=== PATIENT | male | born 1960 | race Caucasian/White ===

== ENCOUNTER 2020-03-06 05:49 | Outpatient (REF) | payer OTHER, SELFPAY ==
[2020-03-06 08:21] LABS: MANUAL DIFF FLAG NO
[2020-03-06 08:25] LABS: Basophils Absolute Auto 0.1 X10*3/uL (0.0-0.2); Basophils Percent Auto 1.4 % (0-2); Eosinophils Absolute Auto 0.2 X10*3/uL (0.0-0.4); Eosinophils Percent Auto 3.4 % (0-4); Hematocrit 40.6 % (42-52); Imm Gran Abs Auto 0.01 X10*3/uL (0.00-0.03); Imm Gran Pct Auto 0.2 % (0.0-0.4); Lymphocytes Absolute Auto 1.3 X10*3/uL (1.2-4.9); Lymphocytes Percent Auto 29.4 % (20-40); Mean Corpuscular Hemoglobin 28.5 pg (27.0-33.0); Monocytes Absolute Auto 0.8 X10*3/uL (0.1-1.2); Neutrophils Absolute Auto 2.2 X10*3/uL (2.0-8.3); Neutrophils Percent Auto 48.6 % (45-73); Platelet Count 289 X10*3/uL (160-400); Red Blood Count 4.56 X10*6/uL (4.60-5.80); Red Cell Distribution Width 14.2 % (11.0-16.0); White Blood Count 4.4 X10*3/uL (4.8-10.8)
[2020-03-06 08:29] LABS: Glucose Urine UA NEG (NEG); Leukocyte Esterase Urine NEG (NEG); Nitrite Urine NEG (NEG); Specific Gravity - Urine 1.025 (1.005-1.025); Urine Blood NEG (NEG); Urine Ketones NEG (NEG); Urine Protein NEG (NEG-TRACE)
[2020-03-06 08:30] LABS: Appearance Urine CLEAR; Color Urine YELLOW
[2020-03-06 09:20] LABS: Alanine Aminotransferase 19 U/L (0-40); Albumin Level 4.5 g/dL (3.5-5.0); Alkaline Phosphatase 82 U/L (39-117); Anion Gap 10 (12-20); Aspartate Amino Transferase 18 U/L (5-37); Bilirubin Total 0.2 mg/dL (0.0-1.0); Blood Urea Nitrogen 18 mg/dL (9-16); Calcium 9.1 mg/dL (8.4-10.2); Carbon Dioxide 30 mmol/L (22-29); Chloride 101 mmol/L (96-108); Cholesterol 176 mg/dL; Estimated Glomerular Filt Rate > 60; Glucose Fasting 99 mg/dL (60-99); HDL Cholesterol 52 mg/dL; LDL Cholesterol Calculated 107 mg/dl; Potassium 4.6 mmol/l (3.3-5.1); Sodium 136 mmol/L (135-145); Total Protein 6.9 g/dL (6.5-8.0); Triglycerides 87 mg/dL
== END 2020-03-06 05:50 | disposition home or self-care (01) ==
LOC: HO.HSHHMC 05:49
PROVIDERS: Visit Provider Internal Medicine Medical Oncology
DX: I48.91 Unspecified atrial fibrillation (principal)
CPT/HCPCS: 36415; 80053; 80061; 81003; 85025

== ENCOUNTER → 2020-04-07 14:39 | Outpatient (BNVA) | payer OTHER, SELFPAY | PROVIDERS: PCP Internal Medicine; Visit Provider Internal Medicine Cardiovascular Disease | DX: I48.92 Unspecified atrial flutter (principal); R00.1 Bradycardia, unspecified | CPT/HCPCS: 93005 ==

== ENCOUNTER 2020-10-06 05:00 | Outpatient (REF) | payer OTHER, SELFPAY ==
[2020-10-06 08:46] LABS: MANUAL DIFF FLAG NO
[2020-10-06 08:57] LABS: Basophils Absolute Auto 0.1 X10*3/uL (0.0-0.2); Basophils Percent Auto 1.2 % (0-2); Eosinophils Absolute Auto 0.2 X10*3/uL (0.0-0.4); Eosinophils Percent Auto 2.8 % (0-4); Hematocrit 39.5 % (42-52); Imm Gran Abs Auto 0.03 X10*3/uL (0.00-0.03); Imm Gran Pct Auto 0.5 % (0.0-0.4); Lymphocytes Absolute Auto 1.9 X10*3/uL (1.2-4.9); Lymphocytes Percent Auto 31.4 % (20-40); Mean Corpuscular HGB Conc 32.9 g/dl (31.0-36.0); Mean Corpuscular Hemoglobin 28.7 pg (27.0-33.0); Mean Corpuscular Volume 87.2 fL (80-98); Mean Platelet Volume 9.4 fL (9.4-12.4); Monocytes Absolute Auto 0.6 X10*3/uL (0.1-1.2); Neutrophils Absolute Auto 3.2 X10*3/uL (2.0-8.3); Neutrophils Percent Auto 54.1 % (45-73); Platelet Count 308 X10*3/uL (160-400); Red Blood Count 4.53 X10*6/uL (4.60-5.80)
[2020-10-06 08:59] LABS: Estimated Average Glucose 108 mg/dL; Hemoglobin A1c % 5.4 %
[2020-10-06 09:10] LABS: Alanine Aminotransferase 14 U/L (0-40); Albumin Level 4.3 g/dL (3.5-5.0); Alkaline Phosphatase 92 U/L (39-117); Anion Gap 12 (12-20); Aspartate Amino Transferase 15 U/L (5-37); Bilirubin Total 0.3 mg/dL (0.0-1.0); Blood Urea Nitrogen 12 mg/dL (9-16); Calcium 9.4 mg/dL (8.4-10.2); Carbon Dioxide 26 mmol/L (22-29); Chloride 105 mmol/L (96-108); Cholesterol 152 mg/dL; Estimated Glomerular Filt Rate > 60; Glucose Fasting 82 mg/dL (60-99); HDL Cholesterol 50 mg/dL; LDL Cholesterol Calculated 93 mg/dl; Potassium 4.4 mmol/L (3.3-5.1); Sodium 139 mmol/L (135-145); Total Protein 6.7 g/dL (6.5-8.0); Triglycerides 48 mg/dL
[2020-10-06 09:30] LABS: Vitamin D 25-OH Total 24.2 ng/mL (>30)
== END 2020-10-06 05:01 ==
LOC: HO.HSHHMC 05:00
PROVIDERS: Visit Provider Internal Medicine Medical Oncology
DX: Z12.5 Encounter for screening for malignant neoplasm of prostate (principal); R73.9 Hyperglycemia, unspecified
CPT/HCPCS: 36415; 80053; 80061; 82306; 83036; 84153; 85025

== ENCOUNTER → 2020-10-13 13:51 | Outpatient (BNVA) | payer OTHER, SELFPAY | PROVIDERS: PCP Internal Medicine; Referring Provider Internal Medicine; Visit Provider Internal Medicine Cardiovascular Disease | DX: I48.92 Unspecified atrial flutter (principal); R00.1 Bradycardia, unspecified; Z79.899 Other long term (current) drug therapy | CPT/HCPCS: 93005 ==

== ENCOUNTER → 2021-04-07 12:37 | Outpatient (REF) | payer OTHER, SELFPAY ==
--- NOTE | 2021-04-07 12:45 | CA_ITS ---
Transthoracic Echocardiogram Patient (Last, First, Middle): Jamir Moreno W Gender: Male Date of : 1960 Age: 61 Procedure Date: 04/07/2021 Procedure Type: Transthoracic Echocardiogram Location: OP Height: 177.8 cm Weight: 90.72 kg BSA: 2.09 m2 Heart Rate: 147 bpm BP: 120 / 68 mmHg Tool And Die Technician: RUBY Referring MD: Rahul Oneal MD Symptoms: I48.92 - Unspecified atrial flutter Study Quality: Fair ECG Rhythm: Atrial flutter with rapid rate Conclusions: - Due to atrial flutter and rapid rate (140s), difficult to assess LVEF; appears to be about 50%. - No obvious valvular pathology based on visualized images. Findings Left Ventricle Normal left ventricular cavity size. There is normal left ventricular wall thickness. Regional wall motion abnormalities can not be excluded due to suboptimal endocardial definition. Diastolic function is indeterminate on the basis of available data. Due to atrial flutter and rapid rate (140s), difficult to assess LVEF; appears to be about 50%. Right Ventricle Normal right ventricular cavity size and systolic function. Atria Atria are not clearly visualized but grossly normal size. Aortic Valve There is mild calcification of the aortic valve. There is no aortic valve stenosis. There is no aortic valve regurgitation. Mitral Valve The mitral valve appears normal. There is no mitral valve regurgitation. There is no mitral valve stenosis. Pulmonic Valve The pulmonic valve was not well visualized. Tricuspid Valve Normal tricuspid valve structure. There is trace tricuspid valve regurgitation. There is no evidence of pulmonary hypertension. Great Vessels The sinuses of valsalva is normal in size. Venous The inferior vena cava is normal in size and collapses less than 50% with inspiration. Pericardium/Pleural There is a trivial pericardial effusion. Prior Study Comparison No significant change compared to prior study dated: 03/13/2018. Measurements 2D Linear Measurements IVSd: 0.99 0.6-0.9/0.6-1.0 cm LVIDd: 4.56 3.9-5.3/4.2-5.9 cm LVIDd Index: 2.18 2.4-3.2/2.2-3.1 cm/m2 LVIDs: 3.28 2.0-3.6 cm LVPWd: 1.17 0.7-1.1 cm Ao Root: 3.50 2.1-3.5 cm LA Diam: 3.30 2.7-3.8/3.0-4.0 cm LAIDs Index: 1.58 1.5-2.3 cm/m2 LV Mass: 217.13 67-162/88-224 g LV Mass Index: 103.89 43-95/49-115 g/m2 LVOT Diam: 2.10 3.0+(-)1.3 cm Mitral Valve E'Lateral: 19.10 E'Medial: 12.60 Aortic Valve AoV Pk Thierry: 1.37 AoV Pk Grad: 8.00 LVOT LVOT Pk Thierry: 1.22 LVOT Mn Thierry: 0.77 LVOT VTI: 0.19 LVOT Pk Grad: 6.00 LVOT Mn Grad: 3.00 LVOT Diam: 2.10 LVOT Area: 3.46 Diastolic Function E'Medial: 12.60 E' Laterial: 19.10 Right Ventricle TAPSE (mm): 22.00 TVS' Thierry: 16.00 Tricuspid Valve TR Pk Thierry: 2.55 TR Pk Grad: 26.00 RA Press: 8.00 RVSP: 33.00 Great Vessels Aorta Ao Root-2D: 3.50 2.0-3.7 cm Updated in Other Vendor System with Status of Final Haider Arguello MD electronically signed on 04/08/2021 11:21:18 AM with status of Final
--- NOTE | 2021-04-07 13:24 | ECG_ITS ---
Test Reason : I48.92 Blood Pressure : / mmHG Vent. Rate : 146 BPM Atrial Rate : 292 BPM P-R Int : 000 ms QRS Dur : 074 ms QT Int : 242 ms P-R-T Axes : 266 000 013 degrees QTc Int : 377 ms Atrial flutter with 2:1 A-V conduction Abnormal ECG When compared with ECG of 24-FEB-2018 23:16, Atrial flutter has replaced Sinus rhythm Vent. rate has increased BY 80 BPM Referred By: Rahul Oneal Electronically Signed By:JYOTI CONLEY
== END ==
LOC: HO.CARD 12:37
PROVIDERS: PCP Internal Medicine; Visit Provider Internal Medicine Cardiovascular Disease
DX: I48.92 Unspecified atrial flutter (principal); R00.1 Bradycardia, unspecified
CPT/HCPCS: 93005; 93306

== ENCOUNTER → 2021-04-09 09:54 | Outpatient (BNVA) | payer OTHER, SELFPAY | PROVIDERS: PCP Internal Medicine; Referring Provider Internal Medicine; Visit Provider Nurse Practitioner Family | DX: R94.31 Abnormal electrocardiogram [ECG] [EKG] (principal) | CPT/HCPCS: 93005 ==

== ENCOUNTER 2021-04-17 12:41 | Day surgery (SDC) | payer OTHER, SELFPAY ==
[2021-04-16 09:04] VITALS: BMI 31.0
--- NOTE | 2021-04-17 11:03 | P.CONAN_ITS ---
[facility] Active Problems Active Problems: All Active Problems (Updated 04/07/20 @ 15:33 by Rahul Oneal MD) Sinus bradycardia (Acute) Paroxysmal atrial flutter (Acute) Past Medical History Medical History Paroxysmal atrial flutter Sinus bradycardia Functional capacity: independent ambulation Family History Family History Father Colon cancer Mother No problems noted. Surgical History Surgical History History of surgery on arm Hx of colonoscopy History of Problems with Anesthesia: No Social History Social History Alcohol intake: former Year quit: 2004 Patient Tobacco Use Status: Former Tobacco user Quit Date: 2018 Years Smoked: 40 +/- Meds Allergies Allergy/AdvReac Type Severity Reaction Status Date / Time No Known Allergies Allergy Verified 04/07/21 14:04 [No Known Allergies*] N.K.D.A. Allergy Unknown Unknown Uncoded 04/07/21 14:04 Home Medications Medication Instructions Recorded Confirmed Last Taken Type paliperidone 1.5 mg 1.5 mg PO tab 10/13/20 10/13/20 Unknown History tablet,extended release 24 hr diltiazem HCl 240 mg 240 mg PO DAILY 04/07/21 04/07/21 Unknown History capsule,extended release 24 hr Exam Exam Date and Time: April 17, 2021 1103 Height,Weight and Vital Signs: Height 5 ft 11 in Weight 101 kg Assessment and Plan Final Anesthetic Review History of Problems with Anesthesia: No
[2021-04-17 13:20] VITALS: BP 142/84; PULSE 146; RESP 18; TEMP 36.7; O2SAT 97; BMI 28.7
[2021-04-17] MEDS: Lactated Ringers 1,000 ML 100 ML IVCONT (13:28)
--- NOTE | 2021-04-17 13:29 | PC.NURSE ---
1330- HR 143 a flutter, asymptomatic BP 123/79. Alert, warm, dry, good color. 1335- HR 1452 a flutter, asymptomatic, 131/82, re-evaluated by Dr Oneal, awaiting LANETTE/cardioversion.
--- NOTE | 2021-04-17 13:45 | HO.ANESPROP2 ---
[facility] Active Problems Active Problems: All Active Problems (Updated 04/07/20 @ 15:33 by Rahul Oneal MD) Sinus bradycardia (Acute) Paroxysmal atrial flutter (Acute) Past Medical History Medical History Paroxysmal atrial flutter Sinus bradycardia Functional capacity: independent ambulation Family History Family History Father Colon cancer Mother No problems noted. Family history of problems with anesthesia: No Surgical History Surgical History History of surgery on arm Hx of colonoscopy History of Problems with Anesthesia: No Social History Social History Alcohol intake: former Year quit: 2004 Patient Tobacco Use Status: Former Tobacco user Quit Date: 2018 Years Smoked: 40 +/- Use of substances other than those prescribed or required for medical reasons: No Are you DNR?: No Advance Directives: No Advance Directives Information Provided: Yes Meds Allergies Allergy/AdvReac Type Severity Reaction Status Date / Time No Known Allergies Allergy Verified 04/07/21 14:04 [No Known Allergies*] N.K.D.A. Allergy Unknown Unknown Uncoded 04/07/21 14:04 Active Medications: Current Medications Lactated Ringer's (Lr) 1,000 mls @ 100 mls/hr IVCONT .Q10H LELIA Last Admin: 04/17/21 13:28 Dose: 100 mls/hr Documented by: Home Medications Medication Instructions Recorded Confirmed Last Taken Type paliperidone 1.5 mg 1.5 mg PO tab 10/13/20 10/13/20 Unknown History tablet,extended release 24 hr diltiazem HCl 240 mg 240 mg PO DAILY 04/07/21 04/07/21 Unknown History capsule,extended release 24 hr Exam Exam Date and Time: April 17, 2021 1345 Height,Weight and Vital Signs: Height 5 ft 10 in Weight 90.718 kg Last Vital Signs Temp 98.1 F 04/17/21 13:20 Pulse 146 H 04/17/21 13:20 Resp 18 04/17/21 13:20 BP 142/84 H 04/17/21 13:20 Pulse Ox 97 04/17/21 13:20 Airway Mallampati Class: III TM Dist: >3cm Neck ROM: Full Denture: Upper and Lower Heart: Fast regular- atrial flutter Lungs: CTA Assessment and Plan Final Anesthetic Review Family History of Problems with Anesthesia: No History of Problems with Anesthesia: No ASA Class: IV Final Preanesthetic Review: Meds/Allgs Chart Reviewed, Consent Obtained/Reviewed and Anes Risks/Benef Reviewed Patient Risk: Intermediate Procedure Risk: Intermediate Anesthetic Plan Anesthetic Plan: MAC: Disposition: Standard PACU
--- NOTE | 2021-04-17 13:50 | CA_ITS ---
Transesophageal Echocardiogram Patient (Last, First, Middle): Jamir Moreno W Gender: Male Date of : 1960 Age: 61 Procedure Date: 04/17/2021 Procedure Type: Transesophageal Echocardiogram Location: OP Height: 177.8 cm Weight: 95.25 kg BSA: 2.13 m2 Heart Rate: bpm Ward Aide: JULIO Referring MD: Rahul Oneal MD Computer Programming Professor: Rahul Oneal MD Symptoms: Persistent atrial flutter, pre cardioversion Conclusion: ??? 1. Low normal LV systolic function, LVEF of around 50%, difficult to estimate due to rapid ventricular rate 2. Mild mitral regurgitation 3. No intracardiac shunting 4. No significant atherosclerosis in the ascending aorta 5. No pericardial effusion 6. No significant clot or smoke formation seen with the left atrium, left atrial appendage Findings Procedure Information Consent was obtained prior to the procedure. Pre LANETTE oral cavity was checked and revealed no overcrowding. The adult 3D probe was passed with no difficulty. Left Ventricle Normal left ventricular cavity size. There is normal left ventricular wall thickness. The left ventricular systolic function is low normal. Diastolic function is indeterminate on the basis of available data. because of persistent tachycardia, LV systolic function is difficult to assess but appears to be at low end of normal at around 50% Right Ventricle Normal right ventricular cavity size and systolic function. Atria The left atrium is likely dilated. There is a highly mobile atrial septum noted. There is no evidence of interatrial shunt. There is no evidence of a patent foramen ovale. the left atrium was identified in multiple you. In no significant filling defect suggestive clot or significant smoke formation seen. The left atrial appendage is also identified in multiple views with no filling defects suggestive clots or significant smoke formation. The left upper, right upper and right lower pulmonary vein drain normally into the left atrium. The left atrial appendage ejection velocity was greater than 60 centimeters/second. The right atrium is likely dilated. The right atrium was free of any clots or significant smoke formation. The right atrial appendage could not be easily identified. The IVC and SVC drain normally into the right atrium. The station valve was noticed at the junction of right atrium and IVC. Aortic Valve Normal aortic valve structure and function. There is no aortic valve stenosis. There is no evidence of a mass on the aortic valve. There is no aortic valve regurgitation. Mitral Valve Normal mitral valve structure and function. There is no mitral valve prolapse. There is mild mitral valve regurgitation. There is no mitral valve stenosis. There is no mass noted on the mitral valve. Pulmonic Valve The pulmonic valve is normal. There is trace pulmonic valve regurgitation. Tricuspid Valve Normal tricuspid valve structure. There is mild tricuspid valve regurgitation. Tricuspid regurgitation envelope is inadequate for calculation of right ventricular systolic pressure. Great Vessels All visible segments of the aorta are normal in size. The pulmonary artery was not well visualized. Venous The inferior vena cava is normal in size and collapses greater than 50% with inspiration. Pericardium/Pleural There is no evidence of pericardial effusion. Updated by Rahul Oneal on 03:50 PM with Status of Final Rahul Oneal MD electronically signed on 04/17/2021 3:50:46 PM with status of Final
--- NOTE | 2021-04-17 13:50 | MHC.SHP ---
Pre-Procedural Eval Section A Date of Service: 04/17/21 The patient is an INPATIENT: No Changes since office visit: Yes Patient answered all questions; No Cold of Flu in the past 2 weeks, No New Medical Problems and No Changes in Medication Section B Chief Complaint: atrial flutter Allergies: Allergies Allergy/AdvReac Type Severity Reaction Status Date / Time No Known Allergies Allergy Verified 04/07/21 14:04 [No Known Allergies*] N.K.D.A. Allergy Unknown Unknown Uncoded 04/07/21 14:04 Plan I have reviewed the history and physical and performed a pertinent physical examination on my patient. No changes have occurred unless specified.
--- NOTE | 2021-04-17 13:59 | PC.NURSE ---
1400- HR 144 aflutter, slight discomfort right arm, 131/89. Remains alert, warm, dry with good color.
[2021-04-17 14:51] VITALS: BP 102/59; PULSE 87; RESP 16; TEMP 36.4; O2SAT 97
--- NOTE | 2021-04-17 14:59 | ECG_ITS ---
Test Reason : post op Blood Pressure : / mmHG Vent. Rate : 090 BPM Atrial Rate : 090 BPM P-R Int : 174 ms QRS Dur : 078 ms QT Int : 358 ms P-R-T Axes : 060 017 045 degrees QTc Int : 437 ms Normal sinus rhythm Possible Left atrial enlargement Cannot rule out Anterior infarct , age undetermined Abnormal ECG When compared with ECG of 07-APR-2021 13:42, Sinus rhythm has replaced Atrial flutter Vent. rate has decreased BY 56 BPM Non-specific change in ST segment in Inferior leads ST no longer depressed in Anterolateral leads T wave inversion no longer evident in Lateral leads Referred By: Rahul Oneal Electronically Signed By:Addison Benjamin
--- NOTE | 2021-04-17 15:05 | HO.CARDIVERS ---
Cardioversion Procedure Note Cardioversion Date of Procedure: 04/17/2021 Ordering Provider: Myself Performing Provider: Myself Indication for Procedure: Persistent difficult to control atrial flutter with rapid ventricular response with symptoms Pre-Op Diagnosis: Same Post-Op Diagnosis: Normal sinus rhythm Performed with Transesophageal Echo: Yes LANETTE findings (if LANETTE Performed): Dictated separately. No clots noted History: See the cardiology office note Consent: Verbal and Written consent was obtained from the patient before starting and confirming use of oral anticoagulant The patient was made aware of the risk of synchronized cardioversion including risk, benefits, alternatives 2nd opinion procedure were discussed Procedure: After consent obtained, cardioversion pads were attached in AP configuration and the patient was sedated by the anesthesia team. Once adequate sedation achieved, patient was delivered 200 joules of biphasic synchronized energy in anteroposterior configuration Complications: None Impression: Successful conversion to sinus rhythm Recommendations: 1. 12 lead EKG 2. 100 mg of flecainide p.o. x1 3. Continue full oral anticoagulation 4. Follow-up in the office
[2021-04-17 15:06] VITALS: BP 105/63; PULSE 87; RESP 16; O2SAT 95
[2021-04-17] MEDS: Flecainide Acetate 50 MG TABLET 100 MG PO (15:16)
[2021-04-17 15:21] VITALS: BP 117/71; PULSE 89; RESP 16; TEMP 36.4; O2SAT 97
== END 2021-04-17 15:57 | disposition home or self-care (01) ==
PROVIDERS: PCP Internal Medicine; Visit Provider Internal Medicine Cardiovascular Disease
DX: I48.92 Unspecified atrial flutter (principal); Z79.01 Long term (current) use of anticoagulants; Z87.891 Personal history of nicotine dependence
CPT/HCPCS: 92960; 93005; 93312; J2250

== ENCOUNTER → 2021-04-23 11:12 | Outpatient (REF) | payer OTHER, SELFPAY ==
--- NOTE | 2021-04-23 11:19 | HM_ITS ---
* Total monitoring time 3 days and 2 hours. * Underlying rhythm- 66% in atrial flutter +/-atrial fibrillation and rest in sinus. * Average sinus rate 126/Min; range 74 to 129/Min. * While in atrial flutter, rate goes as much as 287/Min. In some areas, difficult to say if flutter or fibrillation. * Rare ventricular ectopy with minimal burden. Could also be aberrantly conducted beats. * No patient events. MTDD
== END ==
LOC: HO.CARD 11:12
PROVIDERS: Visit Provider Internal Medicine Cardiovascular Disease
DX: I48.92 Unspecified atrial flutter (principal)
CPT/HCPCS: 93242

== ENCOUNTER → 2021-05-04 14:38 | Outpatient (BNVA) | payer OTHER, SELFPAY | PROVIDERS: PCP Internal Medicine; Referring Provider Internal Medicine; Visit Provider Internal Medicine Cardiovascular Disease | DX: Z13.89 Encounter for screening for other disorder (principal) ==

== ENCOUNTER → 2021-05-11 14:09 | Outpatient (BNVA) | payer OTHER, SELFPAY | PROVIDERS: PCP Internal Medicine; Referring Provider Internal Medicine; Visit Provider Internal Medicine Cardiovascular Disease | DX: Z13.89 Encounter for screening for other disorder (principal) ==

== ENCOUNTER → 2021-05-18 14:05 | Outpatient (BNVA) | payer OTHER, SELFPAY | PROVIDERS: PCP Internal Medicine; Referring Provider Internal Medicine; Visit Provider Internal Medicine Cardiovascular Disease | DX: R94.31 Abnormal electrocardiogram [ECG] [EKG] (principal) | CPT/HCPCS: 93005 ==

== ENCOUNTER → 2021-06-25 13:53 | Outpatient (BNVA) | payer OTHER, SELFPAY | PROVIDERS: PCP Internal Medicine; Referring Provider Internal Medicine; Visit Provider Internal Medicine Cardiovascular Disease | DX: I48.92 Unspecified atrial flutter (principal) | CPT/HCPCS: 93005 ==

== ENCOUNTER → 2021-10-01 14:07 | Outpatient (BNVA) | payer OTHER, SELFPAY | PROVIDERS: PCP Internal Medicine; Referring Provider Internal Medicine; Visit Provider Internal Medicine Cardiovascular Disease | DX: I48.92 Unspecified atrial flutter (principal) | CPT/HCPCS: 93005 ==

== ENCOUNTER → 2021-12-31 14:07 | Outpatient (BNVA) | payer OTHER, SELFPAY | PROVIDERS: PCP Internal Medicine; Referring Provider Internal Medicine; Visit Provider Internal Medicine Cardiovascular Disease | DX: I48.92 Unspecified atrial flutter (principal); R00.1 Bradycardia, unspecified | CPT/HCPCS: 93005 ==

== ENCOUNTER → 2022-04-01 13:55 | Outpatient (BNVA) | payer OTHER, SELFPAY | PROVIDERS: PCP Internal Medicine; Referring Provider Internal Medicine; Visit Provider Internal Medicine Cardiovascular Disease | DX: I48.92 Unspecified atrial flutter (principal) | CPT/HCPCS: 93005 ==

== ENCOUNTER 2022-09-30 14:13 | Outpatient (AMB) | payer OTHER, SELFPAY ==
[2022-09-30 14:19] VITALS: BP 120/70; PULSE 57; BMI 34.5
--- NOTE | 2022-09-30 14:19 | MHC.OFFVIS ---
Intake Vital Signs 09/30/22 14:19 Height 5 ft 10 in Weight 240 lb 4.862 oz BMI 34.5 BP 120/70 Blood Pressure Location Lt brachial Position Sitting Pulse 57 Intake Visit Reasons: 6 MON FUP Intake Note: 6 month f/u Dialysis Nurse Required: No Allergies No Known Allergies [No Known Allergies*] Allergy (Verified 09/30/22 14:27) Medication List - Last Reconciled 09/30/22 by Rahul Oneal MD acetaminophen 500 mg PO TID PRN 15 days apixaban (Eliquis) 5 mg PO BID metoprolol tartrate 50 mg PO BID paliperidone ER 1.5 mg PO HPI HPI Comments History of Present Illness Details Jamir comes for follow-up. He has not had any recurrent episodes of atrial fibrillation/flutter. He has done well. He is status post ablation. Currently off all antiarrhythmic drug therapy. Denies any new symptoms. 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 Unfortunately has gained weight. He still taking oral anticoagulation therapy, no bleeding issues or neurologic events. Takes metoprolol. Denies any heart failure symptoms. Denies any exertional angina. [facility] Medical History Paroxysmal atrial flutter Sinus bradycardia Surgical History History of surgery on arm Hx of colonoscopy Family History Father Colon cancer Mother No problems noted. Social History Housing: Apartment Alcohol intake: former Year quit: 2004 Patient Tobacco Use Status: Former Tobacco user Quit Date: 2018 Years Smoked: 40 +/- e-Cigarette/Vaping Use: Never Used service: Yes Current occupational status: employed and retired Cognitive needs: No Hearing needs: No Vision needs: No Review of Systems ENT Reports dizziness Card Denies chest pain, Denies chest pain at rest, Denies chest pain with activity, Denies rapid heart rate, Denies pedal edema, Denies edema, Denies leg edema, Denies lightheadedness, Denies palpitations, Denies dyspnea, Denies dyspnea on exertion and Denies orthopnea Resp Denies cough, Denies dyspnea and Denies dyspnea on exertion GI Denies hematochezia and Denies change in stool character Musc Denies abnormal gait, Reports limited range of motion, Reports muscle cramps, Denies muscle weakness, Denies numbness, Denies radiating pain into limb, Denies stiffness and Denies tingling Neuro Denies abnormal gait, Reports dizziness, Denies numbness and Denies tingling Endo Denies palpitations Physical Exam Vital Signs: Last Vital Signs Pulse 57 09/30/22 14:19 BP 120/70 09/30/22 14:19 BMI result Body Mass Index 34.5 Const General: cooperative, healthy appearing, no acute distress, alert and awake Nutritional Appearance: obese Orientation/consciousness: patient oriented x3 Neck Neck: Yes normal visual inspection and Yes no JVD Resp Effort & Inspection: normal respiratory effort, able to speak in complete sentences and not labored Auscultation: clear to auscultation bilaterally, no crackles, no rales, no rhonchi and no wheezes Cardio Palpation: normal PMI Rate: tachycardic Rhythm: regular rhythm Heart sounds: S1 normal heart sound present and S2 normal heart sound present Peripheral pulses: Peripheral pulses 2+ throughout GI Inspection: Yes normal to inspection Neuro General: patient oriented x3 Extrem General: Yes normal to inspection and No edema Office Procedures EKG Details: EKG shows sinus bradycardia at 57 beats per minute with normal EKG [id number], Complete Assessment & Plan Assessment & Plan (1) Paroxysmal atrial flutter: Code(s): I48.92 - Unspecified atrial flutter Plan: Paroxysmal atrial flutter/fibrillation in this middle-aged man with no recurrence status post ablation. Doing very well from that perspective. Currently off all antiarrhythmic drug therapy. Has done very well with rhythm control approach will continue pursue rhythm control approach. Continue metoprolol therapy. Continue to avoid stimulants such as caffeine and alcohol and medicine suggest pseudo ephedrine. Advised to participate in weight loss program. There is no indication for oral anticoagulation therapy at this time and this can be discontinued. (2) Sinus bradycardia: Code(s): R00.1 - Bradycardia, unspecified Plan: Sinus bradycardia related to medical therapy. No symptoms related to it. No interventions required for the same. Advised to call me with any symptoms. Will follow up in the clinic in 1 year's time, sooner p.r.n.. Thank you for allowing me to partake in his care Medications: Discontinued apixaban (Eliquis) Discontinued Reason: No Longer Medically Relevant 5 mg PO BID 90 tabs 3RF Coding Level of Care Code Est Pt Level 4 (79636) Diagnoses Paroxysmal atrial flutter I48.92 Sinus bradycardia R00.1 CPT Codes EKG - CPT: 17852-[id number], Complete ([id number])
== END 2022-09-30 15:01 | disposition home or self-care (01) ==
PROVIDERS: PCP Internal Medicine; Referring Provider Internal Medicine; Visit Provider Internal Medicine Cardiovascular Disease
DX: I48.92 Unspecified atrial flutter (principal); R00.1 Bradycardia, unspecified
CPT/HCPCS: 93010; 99214

== ENCOUNTER → 2022-09-30 14:13 | Outpatient (BNVA) | payer OTHER, SELFPAY | PROVIDERS: PCP Internal Medicine; Referring Provider Internal Medicine; Visit Provider Internal Medicine Cardiovascular Disease | DX: I48.92 Unspecified atrial flutter (principal); R00.1 Bradycardia, unspecified; Z79.899 Other long term (current) drug therapy | CPT/HCPCS: 93005 ==

== ENCOUNTER 2022-10-19 11:12 | Outpatient (AMB) | payer OTHER, SELFPAY ==
[2022-10-19 11:14] VITALS: BP 126/72; PULSE 63; O2SAT 96; BMI 34.9
--- NOTE | 2022-10-19 11:14 | MHC.PC.OV ---
Vital Signs 10/19/22 11:14 Height 5 ft 10 in Weight 243 lb BMI 34.9 BP 126/72 Blood Pressure Location Rt brachial Position Sitting Pulse 63 Pulse Source Pulse Oximeter Pulse Oximetry (%) 96 Oxygen Delivery Method Room Air Intake Visit Reasons: Annual PE Allergies No Known Allergies [No Known Allergies*] Allergy (Verified 10/19/22 11:19) Medication List - Last Reconciled 10/19/22 by Marlys Meza MD acetaminophen 500 mg PO TID PRN 15 days metoprolol tartrate 50 mg PO BID paliperidone ER 1.5 mg PO Tobacco use date assessed: 10/19/22 Dental Screening Dental Screen Date: 10/19/22 Did you have a dental visit in the last 12 months?: No Did you have a dental problem in the last 6 months where you did not have access to dental care?: No Was dental information given to patient?: No HPI Annual PE HPI Details Patient is a 62-year-old gentleman came in today for physical examination He tells me that he is due for colonoscopy as well last time it was done more than [address] [facility] He brought in his lab report from [facility] and I see that his TSH level is less than 0.06, we will be repeating labs again along mid thyroid antibodies and I have ordered ultrasound of thyroid as well. LDL is 133 Hemoglobin 13.1 platelets 256 Liver enzymes are within normal range Renal functions intact electrolytes within normal limit. Seen Cardiology Dr. Oneal in September note reviewed He has not had any recurrent episodes of atrial fibrillation/flutter. He is status post ablation. Currently off all antiarrhythmic drug therapy. He has blood thinner was stopped he is to continue metoprolol BMI is elevated at 34.9 we talked about it patient says that he will see nerve specialist through [facility]. [facility] Medical History Paroxysmal atrial flutter Sinus bradycardia Surgical History History of surgery on arm Hx of colonoscopy Family History Father Colon cancer Mother No problems noted. Social History Housing: Apartment Alcohol intake: former Year quit: 2004 Patient Tobacco Use Status: Former Tobacco user Quit Date: 2019 Years Smoked: 40 +/- e-Cigarette/Vaping Use: Never Used service: Yes Current occupational status: employed and retired Cognitive needs: No Hearing needs: No Vision needs: No Questionnaire PHQ-9 Over the last 2 weeks, how often have you been bothered by any of the following problems? 1. Little interest or pleasure in doing things: not at all 2. Feeling down, depressed, or hopeless: not at all 3. Trouble falling or staying asleep, or sleeping too much: not at all 4. Feeling tired or having little energy: not at all 5. Poor appetite or overeating: not at all 6. Feeling bad about yourself - or that you are a failure or have let yourself or your family down: not at all 7. Trouble concentrating on things, such as reading the newspaper or watching television: not at all 8. Moving or speaking so slowly that other people could have noticed. Or the opposite - being so fidgety or restless that you have been moving around a lot more than usual: not at all 9. Thoughts that you would be better off or of hurting yourself in some way: not at all Total score: 0 Depression Screening Interpretation: Negative 53380 - PHQ-9 Billing: Yes Source: Developed by Drs. Jamir Rosales, Adam Mclean and colleagues, with an educational pravin from [employer]. Thrive Questionnaire Date Thrive assessed: 06/16/21 AUDIT C Alcohol Use Questionnaire (AUDIT-C) 1. How often do you have a drink containing alcohol?: Never 3. How often do you have six or more drinks on one occasion?: Never Total Score: 0 Score Reviewed/Action Taken: Yes GUSTAVO-7 AMB Questionnaire GUSTAVO-7 Date GUSTAVO - 7 assessed: 06/16/21 Source: Developed by Drs. Jamir Rosales, Adam Mclean and colleagues, with an educational pravin from [employer]. Review of Systems Const Denies chills, Denies fever(s) and Denies headache(s) Eyes Denies blurry vision ENT Denies headache(s), Denies nasal discharge, Denies nasal obstruction, Denies odynophagia and Denies sinus pain Card Denies chest pain at rest and Denies chest pain with activity Resp Denies cough and Denies hemoptysis GI Denies diarrhea, Denies odynophagia, Denies vomiting and Denies hematemesis Reports as per HPI Musc Denies abnormal gait Skin/Breast Reports as per HPI Neuro Denies Neuro-related abnormal movements, Denies Abnormal speech present, Denies abnormal gait, Denies headache(s) and Denies Sensory deficit (Neuro) Psych Denies mood swings and Denies paranoia Endo Reports as per HPI Raulito/Lymph Reports as per HPI Aller/Immun Reports as per HPI Physical exam (Primary Care) Vital Signs: Last Vital Signs Pulse 63 10/19/22 11:14 BP 126/72 10/19/22 11:14 Pulse Ox 96 10/19/22 11:14 Oxygen Delivery Method Room Air 10/19/22 11:14 BMI result Body Mass Index 34.9 Tobacco/Smoking Status: Tobacco use Status Tobacco use date assessed 10/19/22 10/19/22 11:21 Patient Tobacco Use Status Former Tobacco user 10/19/22 11:14 e-Cigarette/Vaping Use Never Used 10/19/22 11:14 Depression Screening Interpretation: Negative Thrive Assessment: Date of Thrive Assessment Date Thrive assessed 06/16/21 10/19/22 11:14 Const General: cooperative, comfortable and no acute distress Orientation/consciousness: patient oriented x3 HENMT Head: Yes normocephalic and Yes atraumatic Eyes General: appearance normal, both eyes and all related structures Pupils: Equal, round and reactive pupils present EOM: EOMs intact bilaterally Neck Neck: Yes supple and No lymphadenopathy Thyroid: Thyroid normal Lymphatic: no lymphadenopathy noted Chest Breast/axilla palpation: normal palpation of the breasts Resp Effort & Inspection: normal respiratory effort and able to speak in complete sentences Auscultation: clear to auscultation bilaterally Cardio Heart sounds: S1 normal heart sound present and S2 normal heart sound present GI Palpation (GI): Soft to palpation and nontender Auscultation: normal bowel sounds General: Yes no CVA tenderness Back/Spine/Pelvis Back: no CVA tenderness Skin General skin exam: elasticity normal and turgor normal Neuro General: patient oriented x3 and gait normal Cranial nerves: Yes Equal, round and reactive pupils present Speech: No Abnormal speech present Sensory Exam: No Sensory deficit (Neuro) Coordination: tandem gait normal and Romberg test negative Extrem General: Yes normal exam except as noted and No edema Assessment and Plan Assessment & Plan (1) Encounter for general adult medical examination with abnormal findings: Code(s): Z00.01 - Encounter for general adult medical examination with abnormal findings (2) Delusional disorder: Code(s): F22 - Delusional disorders (3) Paroxysmal atrial flutter: Code(s): I48.92 - Unspecified atrial flutter (4) Sinus bradycardia: Code(s): R00.1 - Bradycardia, unspecified (5) Anemia: Code(s): D64.9 - Anemia, unspecified Qualifiers: Anemia type: other cause (6) Obesity due to excess calories: Code(s): E66.09 - Other obesity due to excess calories Qualifiers: Body mass index: BMI 34.0-34.9 Obesity classification: adult class 1 (BMI 30 - 34.9) Serious obesity comorbidity presence: with serious comorbidity Qualified Code(s): E66.09 - Other obesity due to excess calories; Z68.34 - Body mass index [BMI] 34.0-34.9, adult (7) Low TSH level: Code(s): R79.89 - Other specified abnormal findings of blood chemistry (8) Colon cancer screening: Code(s): Z12.11 - Encounter for screening for malignant neoplasm of colon Plan Patient is a 62-year-old gentleman came in today for physical examination He tells me that he is due for colonoscopy as well last time it was done more than [address] [facility] He brought in his lab report from [facility] and I see that his TSH level is less than 0.06, we will be repeating labs again along mid thyroid antibodies and I have ordered ultrasound of thyroid as well. LDL is 133 Hemoglobin 13.1 platelets 256 Liver enzymes are within normal range Renal functions intact electrolytes within normal limit. Seen Cardiology Dr. Oneal in September note reviewed He has not had any recurrent episodes of atrial fibrillation/flutter. He is status post ablation. Currently off all antiarrhythmic drug therapy. He has blood thinner was stopped he is to continue metoprolol BMI is elevated at 34.9 we talked about it patient says that he will see nerve specialist through [facility]. Psychiatric illness management through Psychiatry. Orders: Orders TSH reflex Free T4 Today D64.9 - Anemia, unspecified, F22 - Delusional disorders, I48.92 - Unspecified atrial flutter, R00.1 - Bradycardia, unspecified, Z00.01 - Encounter for general adult medical examination with abnormal findings Thyroglobulin Antibodies Today R79.89 - Other specified abnormal findings of blood chemistry US thyroid Today R79.89 - Other specified abnormal findings of blood chemistry Referrals Gastroenterology Referral Z12.11 - Encounter for screening for malignant neoplasm of colon Coding Level of Care Code Est Pt Prev Care 40-64y(85363) Diagnoses Encounter for general adult medical examination with abnormal findings Z00.01 Delusional disorder F22 Paroxysmal atrial flutter I48.92 Sinus bradycardia R00.1 Anemia D64.9 Anemia type: other cause Obesity due to excess calories E66.09; Z68.34 Body mass index: BMI 34.0-34.9 Obesity classification: adult class 1 (BMI 30 - 34.9) Serious obesity comorbidity presence: with serious comorbidity Low TSH level R79.89 Colon cancer screening Z12.11
== END 2022-10-19 11:47 | disposition home or self-care (01) ==
PROVIDERS: Visit Provider Internal Medicine
DX: Z00.01 Encounter for general adult medical examination with abnormal findings (principal); E66.09 Other obesity due to excess calories; Z68.34 Body mass index [BMI] 34.0-34.9, adult; I48.92 Unspecified atrial flutter; F22 Delusional disorders; R00.1 Bradycardia, unspecified; D64.9 Anemia, unspecified; R79.89 Other specified abnormal findings of blood chemistry
CPT/HCPCS: 99396

== ENCOUNTER 2022-10-19 11:46 | Outpatient (REF) | payer OTHER, SELFPAY ==
[2022-10-19 15:35] LABS: TSH reflex Free T4 < 0.01 uIU/mL (0.32-4.0)
[2022-10-19 16:55] LABS: Free T4 (Free Thyroxine) 1.37 ng/dL (0.71-1.85)
[2022-10-21 05:45] LABS: Thyroglobulin Antibodies <1 IU/mL (< or = 1)
== END 2022-10-19 11:47 | disposition home or self-care (01) ==
LOC: HO.HMGCLDS 11:46
PROVIDERS: PCP Internal Medicine; Visit Provider Internal Medicine
DX: Z00.01 Encounter for general adult medical examination with abnormal findings (principal); F22 Delusional disorders; I48.92 Unspecified atrial flutter; R00.1 Bradycardia, unspecified; D64.9 Anemia, unspecified; R79.89 Other specified abnormal findings of blood chemistry
CPT/HCPCS: 36415; 84439; 84443; 86800

== ENCOUNTER 2022-11-02 13:31 | Outpatient (REF) | payer OTHER, SELFPAY ==
--- NOTE | ~2022-11-02 | US_ITS ---
EXAMINATION: US THYROID CLINICAL INFORMATION: Other specified abnormal findings of blood chemistry. COMPARISON: None available. TECHNIQUE: Linear transducer grayscale and color Doppler examination with attention to the region of the thyroid. FINDINGS: SIZE: Measurements of the thyroid lobes and nodules are given in sagittal, anteroposterior and transverse dimensions respectively. Right Thyroid Lobe: 5.0 x 1.9 x 2.1 cm, volume 10.6 mL. Parenchyma: The gland echotexture is heterogeneous. Thyroid vascularity is normal. Left Thyroid Lobe: 4.1 x 1.5 x 1.7 cm, volume 5.6 mL. Parenchyma: The gland echotexture is heterogeneous. Thyroid vascularity is normal. Isthmus: 0.4 cm in maximum AP dimension. Estimated total number of nodules greater than or equal to 1 cm: 0. 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 Location: Right thyroid mid pole lower pole. Size: 0.6 x 0.7 x 0.5 cm, volume 0.1 mL. Nodule characteristics: Composition: Solid (2). Echogenicity: Hypoechoic (2). Shape: Taller than wide (3). Margins: Smooth (0). Echogenic Foci: None (0). ACR TI-RADS total points: 7 ACR TI-RADS category: 5 2. Location: Isthmus. Size: 0.6 x 0.3 x 0.7 cm, volume 0.07 mL. Nodule characteristics: Composition: Cystic(0). Echogenicity: Anechoic (0). Shape: Not taller than wide (0). Margins: Smooth (0). Echogenic Foci: None (0). ACR TI-RADS total points: 0 ACR TI-RADS category: 1 NODES: No lymphadenopathy is seen in the tissue surrounding the thyroid gland. US/US thyroid IMPRESSION: Diffusely heterogeneous multinodular thyroid gland. Right 0.7 cm TR 5 thyroid nodule. There is no indication for follow-up imaging per ACR criteria below. ACR TI-RADS RECOMMENDATION REFERENCE: Ultrasound-guided fine-needle aspiration, followup ultrasound, no further follow up. * TR1 (0 point) and TR2 (2 points): No FNA or follow up. * TR3 (3 points): FNA if more than or equal to 2.5 cm in maximum dimension, followup ultrasound in 1, 3 and 5 years if 1.5 to 2.4 cm in maximum dimension. * TR4 (4-6 points): FNA if more than or equal to 1.5 cm in maximum dimension, followup ultrasound in 1, 2, 3 and 5 years if 1 to 1.4 cm in maximum dimension. * TR5 (more than or equal to 7 points): FNA if more than or equal to 1 cm in maximum dimension, followup ultrasound every year for 5 years if 0.5 to 0.9 cm in maximum dimension. * TR3, TR4 or TR5 nodules that are below the size threshold for followup receive no follow up.
== END 2022-11-02 13:32 | disposition home or self-care (01) ==
LOC: HO.US 13:31
PROVIDERS: PCP Internal Medicine; Visit Provider Internal Medicine
DX: R79.89 Other specified abnormal findings of blood chemistry (principal)
CPT/HCPCS: 76536

== ENCOUNTER 2023-09-28 13:08 | Outpatient (AMB) | payer OTHER, SELFPAY ==
[2023-09-28 13:17] VITALS: BP 118/78; PULSE 55; BMI 34.2
--- NOTE | 2023-09-28 13:17 | MHC.OFFVIS ---
Vital Signs 09/28/23 13:17 Height 5 ft 10 in Weight 238 lb 1.588 oz BMI 34.2 BP 118/78 Blood Pressure Location Lt brachial Position Sitting Pulse 55 Intake Visit Reasons: 1 year follow up Intake Note: 1 year follow-up with ekg c/o chest pain but very little [employer] Required: No Allergies No Known Allergies [No Known Allergies*] Allergy (Verified 10/19/22 11:19) Medication List - Last Reconciled 09/28/23 by Rahul Oneal MD acetaminophen 500 mg PO TID PRN 15 days metoprolol tartrate 50 mg PO BID paliperidone ER 1.5 mg PO HPI Comments Details: Jamir comes for his annual follow-up of atrial fibrillation, flutter. He has not had any significant symptoms of prolonged palpitation irregular heartbeat or fast heart rate. Taking his medications. Has been gaining some weight. Does not exercise on regular basis. 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 Symptoms then subsided on its own and then recurred few hours later and subsided again and then recurred again. This morning he has had no recurrent discomfort. He takes all his medications. No heart failure symptoms. No lightheadedness, syncope. [facility] Medical History Sinus bradycardia Paroxysmal atrial flutter Surgical History History of surgery on arm Hx of colonoscopy Family History Father Colon cancer Mother No problems noted. Social History Housing: Apartment Alcohol intake: former Year quit: 2004 Patient Tobacco Use Status: Former Tobacco user Years Smoked: 40 +/- e-Cigarette/Vaping Use: Never Used service: Yes Current occupational status: employed and retired Cognitive needs: No Hearing needs: No Vision needs: No Review of Systems Const Denies chills, Denies fatigue, Denies fever(s), Denies frequent falls, Denies weakness, Denies weight gain and Denies weight loss ENT Denies dizziness Card Denies chest pain, Denies leg edema, Denies lightheadedness, Denies palpitations, Denies dyspnea, Denies dyspnea on exertion, Denies orthopnea and Denies other (loss of consciousness) Resp Denies cough, Denies dyspnea and Denies dyspnea on exertion GI Denies hematochezia and Denies change in stool character Musc Denies abnormal gait, Denies muscle weakness, Denies numbness, Denies radiating pain into limb and Denies tingling Neuro Denies abnormal gait, Denies dizziness, Denies frequent falls, Denies numbness, Denies tingling and Denies weakness Endo Denies fatigue and Denies palpitations Physical Exam Vital Signs: Last Vital Signs Pulse 55 09/28/23 13:17 BP 118/78 09/28/23 13:17 BMI result Body Mass Index 34.2 Const General: cooperative, healthy appearing, no acute distress, alert and awake Nutritional Appearance: obese Orientation/consciousness: patient oriented x3 Neck Neck: Yes normal visual inspection and Yes no JVD Resp Effort & Inspection: normal respiratory effort, able to speak in complete sentences and not labored Auscultation: clear to auscultation bilaterally, no crackles, no rales, no rhonchi and no wheezes Cardio Palpation: normal PMI Rate: tachycardic Rhythm: regular rhythm Heart sounds: S1 normal heart sound present and S2 normal heart sound present Peripheral pulses: Peripheral pulses 2+ throughout GI Inspection: Yes normal to inspection Neuro General: patient oriented x3 Extrem General: Yes normal to inspection and No edema Office Procedures EKG Details: EKG shows sinus bradycardia at 55 beats per minute [id number], Complete Assessment & Plan Assessment & Plan (1) Paroxysmal atrial flutter: Code(s): I48.92 - Unspecified atrial flutter Category: Medical Plan: Prior history of highly symptomatic paroxysmal atrial for her has remained suppressed after ablation therapy has done very well. Continue metoprolol therapy for now for both reducing cardiac excitability as well as to control his blood pressure. Clinically doing well at this point time. No recurrent episodes. Advised to call me with new symptoms. Avoidance of stimulants was discussed. (2) Atypical chest pain: Code(s): R07.89 - Other chest pain Plan: Patient developed chest pain with exertion yesterday although with some atypical features. Given his age would suggest exercise treadmill stress test given baseline EKG being normal to evaluate for myocardial ischemia. Also suggest echocardiogram to evaluate LV systolic and diastolic function to evaluate for hypertensive heart disease. This test will be scheduled in near future. He is advised to seek emergency care if he has prolonged unrelenting chest pain with other symptoms. He understands agrees. Will follow up in the clinic 1 year's time, sooner p.r.n.. Thank you for allowing me to partake in his care Coding Level of Care Code Est Pt Level 4 (51058) Diagnoses Paroxysmal atrial flutter I48.92 Atypical chest pain R07.89 CPT Codes EKG - CPT: 85458-[id number], Complete ([id number])
== END 2023-09-28 13:41 | disposition home or self-care (01) ==
PROVIDERS: PCP Internal Medicine; Visit Provider Internal Medicine Cardiovascular Disease
DX: I48.92 Unspecified atrial flutter (principal); R07.89 Other chest pain
CPT/HCPCS: 93010; 99214

== ENCOUNTER → 2023-09-28 13:08 | Outpatient (BNVA) | payer OTHER, SELFPAY | PROVIDERS: PCP Internal Medicine; Visit Provider Internal Medicine Cardiovascular Disease | DX: I48.92 Unspecified atrial flutter (principal); R07.89 Other chest pain; Z79.899 Other long term (current) drug therapy | CPT/HCPCS: 93005 ==

== ENCOUNTER 2023-10-25 10:50 | Outpatient (AMB) | payer OTHER, SELFPAY ==
[2023-10-25 10:55] VITALS: BP 142/74; PULSE 76; O2SAT 97; BMI 34.2
--- NOTE | 2023-10-25 10:55 | MHC.PC.OV ---
Vital Signs 10/25/23 10:55 Height 5 ft 10 in Weight 238 lb 2 oz BMI 34.2 BP 142/74 H Blood Pressure Location Lt brachial Position Sitting Pulse 76 Pulse Source Pulse Oximeter Pulse Oximetry (%) 97 Oxygen Delivery Method Room Air Intake Visit Reasons: Annual PE Allergies No Known Allergies [No Known Allergies*] Allergy (Verified 10/25/23 10:56) Medication List - Last Reconciled 10/25/23 by Marlys Meza MD acetaminophen 500 mg PO TID PRN 15 days metoprolol tartrate 50 mg PO BID paliperidone ER 1.5 mg PO Tobacco use date assessed: 10/25/23 Dental Screening Dental Screen Date: 10/25/23 Did you have a dental visit in the last 12 months?: Yes Did you have a dental problem in the last 6 months where you did not have access to dental care?: No Was dental information given to patient?: Patient has dentist HPI Annual PE HPI Details Physical exam appointment Patient is established with Cardiology [facility] endocrinology associates Dr. Bhardwaj Patient has hyper thyroidism which is being managed through endocrinology He is under observation at this time Offers no complaints today Blood pressure is borderline managed by Cardiology Lab order placed to be done today we will forward the reports to endocrinology Last year referral was placed for colonoscopy with Dr. Clarke Patient decided not to pursue [facility] Medical History Sinus bradycardia Paroxysmal atrial flutter Surgical History History of surgery on arm Hx of colonoscopy Family History Father Colon cancer Mother No problems noted. Social History Housing: Apartment Alcohol intake: former Year quit: 2004 Patient Tobacco Use Status: Former Tobacco user Years Smoked: 40 +/- e-Cigarette/Vaping Use: Never Used service: Yes Current occupational status: employed and retired Cognitive needs: No Hearing needs: No Vision needs: No Questionnaire PHQ-9 Over the last 2 weeks, how often have you been bothered by any of the following problems? 1. Little interest or pleasure in doing things: not at all 2. Feeling down, depressed, or hopeless: not at all 3. Trouble falling or staying asleep, or sleeping too much: not at all 4. Feeling tired or having little energy: not at all 5. Poor appetite or overeating: not at all 6. Feeling bad about yourself - or that you are a failure or have let yourself or your family down: not at all 7. Trouble concentrating on things, such as reading the newspaper or watching television: not at all 8. Moving or speaking so slowly that other people could have noticed. Or the opposite - being so fidgety or restless that you have been moving around a lot more than usual: not at all 9. Thoughts that you would be better off or of hurting yourself in some way: not at all Total score: 0 Depression Screening Interpretation: Negative Depression Screening Done: Yes 37174 - PHQ-9 Billing: Yes Source: Developed by Drs. Jamir Rosales, Christine Brown, Adam Dejesus and colleagues, with an educational pravin from [employer]. Thrive Questionnaire Date Thrive assessed: 10/25/23 I am a: Patient What is your living situation today?: I have a steady place to live Within the past 12 months, did the food you bought not last and you didn't have the money to get more?: Never true Within the past 12 months, did you worry whether your food would run out before you got money to buy more?: Never true Do you have trouble paying for medicines?: No Do you have trouble getting transportation to medical appointments?: No Do you have trouble paying your heating and electricity bill?: No Do you have trouble taking care of your child, family member or friend?: No Do you have trouble with day-to-day activities such as bathing, preparing meals, shopping, managing finances, etc.?: No Are you currently unemployed and looking for a job?: No Are you interested in more education?: No Please select the resources that you would like help with: None Currently or been in a relationship where the following occur: No concerns reported THRIVE Score: 0 AUDIT C Alcohol Use Questionnaire (AUDIT-C) 1. How often do you have a drink containing alcohol?: Never 3. How often do you have six or more drinks on one occasion?: Never Total Score: 0 Score Reviewed/Action Taken: Yes GUSTAVO-7 AMB Questionnaire GUSTAVO-7 Date GUSTAVO - 7 assessed: 10/25/23 Feeling nervous, anxious, or on edge: 0 = Not at all Not being able to stop or control worryin = Not at all Worrying too much about different things: 0 = Not at all Trouble relaxin = Not at all Being so restless that it is hard to sit still: 0 = Not at all Becoming easily annoyed or irritable: 0 = Not at all Feeling afraid as if something awful might happen: 0 = Not at all Total GUSTAVO-7 score (0-4 normal; 5-9 mild; 10-14 moderate; 15-21 severe): 0 Source: Developed by Drs. Jamir Rosales, Christine Brown, Adam Dejesus and colleagues, with an educational pravin from [employer]. GUSTAVO-7 Assessment Billing GUSTAVO-7 Assessment Tool: GUSTAVO-7 Assessment 50913 Review of Systems Const Denies chills, Denies fever(s) and Denies headache(s) Eyes Denies blurry vision ENT Denies headache(s), Denies nasal discharge, Denies nasal obstruction, Denies odynophagia and Denies sinus pain Card Denies chest pain at rest and Denies chest pain with activity Resp Denies cough and Denies hemoptysis GI Denies diarrhea, Denies odynophagia, Denies vomiting and Denies hematemesis Reports as per HPI Musc Denies abnormal gait Skin/Breast Reports as per HPI Neuro Denies Neuro-related abnormal movements, Denies Abnormal speech present, Denies abnormal gait, Denies headache(s) and Denies Sensory deficit (Neuro) Psych Denies mood swings and Denies paranoia Endo Reports as per HPI Raulito/Lymph Reports as per HPI Aller/Immun Reports as per HPI Physical exam (Primary Care) Vital Signs: Last Vital Signs Pulse 76 10/25/23 10:55 BP 142/74 H 10/25/23 10:55 Pulse Ox 97 10/25/23 10:55 Oxygen Delivery Method Room Air 10/25/23 10:55 BMI result Body Mass Index 34.2 Tobacco/Smoking Status: Tobacco use Status Tobacco use date assessed 10/25/23 10/25/23 10:59 Patient Tobacco Use Status Former Tobacco user 10/25/23 10:59 e-Cigarette/Vaping Use Never Used 10/25/23 10:59 PHQ-9: PHQ-9 Score PHQ-9: Total score 0 10/25/23 11:11 Depression Screening Interpretation: Negative Thrive Assessment: Date of Thrive Assessment Date Thrive assessed 10/25/23 10/25/23 10:59 Currently or been in a relationship where the following occur: No concerns reported Const General: cooperative, comfortable and no acute distress Orientation/consciousness: patient oriented x3 HENMT Head: Yes normocephalic and Yes atraumatic Eyes General: appearance normal, both eyes and all related structures Pupils: Equal, round and reactive pupils present EOM: EOMs intact bilaterally Neck Neck: Yes supple and No lymphadenopathy Thyroid: Thyroid normal Lymphatic: no lymphadenopathy noted Resp Effort & Inspection: normal respiratory effort and able to speak in complete sentences Auscultation: clear to auscultation bilaterally Cardio Heart sounds: S1 normal heart sound present and S2 normal heart sound present GI Palpation (GI): Soft to palpation and nontender Auscultation: normal bowel sounds General: Yes no CVA tenderness Back/Spine/Pelvis Back: no CVA tenderness Skin General skin exam: elasticity normal and turgor normal Neuro General: patient oriented x3 and gait normal Cranial nerves: Yes Equal, round and reactive pupils present Speech: No Abnormal speech present Sensory Exam: No Sensory deficit (Neuro) Coordination: tandem gait normal and Romberg test negative Extrem General: Yes normal exam except as noted and No edema Assessment and Plan Assessment & Plan (1) Adult general medical exam: Code(s): Z00.00 - Encounter for general adult medical examination without abnormal findings (2) Delusional disorder: Code(s): F22 - Delusional disorders (3) Paroxysmal atrial flutter: Code(s): I48.92 - Unspecified atrial flutter (4) Low TSH level: Code(s): R79.89 - Other specified abnormal findings of blood chemistry Plan Physical exam appointment Patient is established with Cardiology [facility] endocrinology associates Dr. Bhardwaj Patient has hyper thyroidism which is being managed through endocrinology He is under observation at this time Offers no complaints today Blood pressure is borderline managed by Cardiology Lab order placed to be done today we will forward the reports to endocrinology Last year referral was placed for colonoscopy with Dr. Clarke Patient decided not to pursue Orders: Orders Comprehensive Met. Panel Today F22 - Delusional disorders, I48.92 - Unspecified atrial flutter, R79.89 - Other specified abnormal findings of blood chemistry, Z00.01 - Encounter for general adult medical examination with abnormal findings LDL Cholesterol Direct Today F22 - Delusional disorders, I48.92 - Unspecified atrial flutter, R79.89 - Other specified abnormal findings of blood chemistry, Z00.01 - Encounter for general adult medical examination with abnormal findings TSH reflex Free T4 Today F22 - Delusional disorders, I48.92 - Unspecified atrial flutter, R79.89 - Other specified abnormal findings of blood chemistry, Z00.01 - Encounter for general adult medical examination with abnormal findings Complete Blood Count Auto Diff Today F22 - Delusional disorders, I48.92 - Unspecified atrial flutter, R79.89 - Other specified abnormal findings of blood chemistry, Z00.01 - Encounter for general adult medical examination with abnormal findings Thyroglobulin Antibodies Today R79.89 - Other specified abnormal findings of blood chemistry Coding Level of Care Code Est Pt Prev Care 40-64y(28466) Diagnoses Adult general medical exam Z00.00 Delusional disorder F22 Paroxysmal atrial flutter I48.92 Low TSH level R79.89 Additional Codes GUSTAVO-7 Assessment Billing - GUSTAVO-7 Assessment Tool: GUSTAVO-7 Assessment [id number] ([id number])
== END 2023-10-25 11:15 | disposition home or self-care (01) ==
PROVIDERS: PCP Internal Medicine; Visit Provider Internal Medicine
DX: Z00.00 Encounter for general adult medical examination without abnormal findings (principal); F22 Delusional disorders; I48.92 Unspecified atrial flutter; R79.89 Other specified abnormal findings of blood chemistry
CPT/HCPCS: 99396

== ENCOUNTER 2023-10-25 11:16 | Outpatient (REF) | payer OTHER, SELFPAY ==
[2023-10-25 13:09] LABS: MANUAL DIFF FLAG NO
[2023-10-25 13:21] LABS: Basophils Absolute Auto 0.1 X10*3/uL (0.0-0.2); Basophils Percent Auto 0.8 % (0-2); Eosinophils Absolute Auto 0.2 X10*3/uL (0.0-0.4); Eosinophils Percent Auto 2.6 % (0-4); Hematocrit 40.4 % (42.0-52.0); Hemoglobin 13.4 g/dl (14.0-18.0); Imm Gran Abs Auto 0.01 X10*3/uL (0.00-0.03); Imm Gran Pct Auto 0.2 % (0.0-0.4); Lymphocytes Absolute Auto 2.4 X10*3/uL (1.2-4.9); Lymphocytes Percent Auto 39.5 % (20-40); Mean Corpuscular HGB Conc 33.2 g/dl (31.0-36.0); Mean Corpuscular Hemoglobin 29.4 pg (27.0-33.0); Mean Corpuscular Volume 88.6 fL (80.0-98.0); Mean Platelet Volume 9.4 fL (9.4-12.4); Monocytes Absolute Auto 0.5 X10*3/uL (0.1-1.2); Monocytes Percent Auto 8.1 % (2-11); Neutrophils Percent Auto 48.8 % (45-73); Platelet Count 251 X10*3/uL (160-400); Red Blood Count 4.56 X10*6/uL (4.60-5.80); Red Cell Distribution Width 13.8 % (11.0-16.0); White Blood Count 6.1 X10*3/uL (4.8-10.8)
[2023-10-25 13:35] LABS: Alanine Aminotransferase 29 U/L (0-40); Albumin Level 4.6 g/dL (3.5-5.0); Alkaline Phosphatase 60 U/L (39-117); Anion Gap 11 (12-20); Aspartate Amino Transferase 22 U/L (5-37); Bilirubin Total 0.6 mg/dL (0.0-1.0); Blood Urea Nitrogen 20 mg/dL (9-16); Calcium 10.3 mg/dL (8.4-10.2); Carbon Dioxide 29 mmol/L (22-29); Chloride 104 mmol/L (96-108); Estimated Glomerular Filt Rate > 60; Glucose Random 91 mg/dL (60-115); Potassium 4.3 mmol/L (3.3-5.1); Sodium 140 mmol/L (135-145); Total Protein 7.4 g/dL (6.5-8.0)
[2023-10-25 13:42] LABS: TSH reflex Free T4 0.68 uIU/mL (0.32-4.0)
[2023-10-26 11:04] LABS: Thyroglobulin Antibodies <1 IU/mL (< or = 1)
[2023-10-26 12:33] LABS: LDL Cholesterol Direct 116 mg/dL (<100)
== END 2023-10-25 11:17 | disposition home or self-care (01) ==
LOC: HO.HMGCLDS 11:16
PROVIDERS: PCP Internal Medicine; Visit Provider Internal Medicine
DX: Z00.01 Encounter for general adult medical examination with abnormal findings (principal); F22 Delusional disorders; I48.92 Unspecified atrial flutter; R79.89 Other specified abnormal findings of blood chemistry
CPT/HCPCS: 36415; 80053; 83721; 84443; 85025; 86800

== ENCOUNTER → 2023-11-10 07:38 | Outpatient (REF) | payer OTHER, SELFPAY ==
--- NOTE | 2023-11-10 07:41 | CA_ITS ---
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 The calculated ejection fraction is 62% by biplane method. - No obvious valvular pathology seen on this study. Findings Procedure Information Contrast agent, definity, is being given per protocol without apparent complications. Left Ventricle Normal left ventricular cavity size. There is normal left ventricular wall thickness. The left ventricular systolic function is normal. The calculated ejection fraction is 62% by biplane method. There is no evidence of regional wall motion abnormalities. Diastolic function is normal for age. Right Ventricle Normal right ventricular cavity size and systolic function. Atria Both atria are normal in size. Aortic Valve There is a normal trileaflet aortic valve. There is mild calcification of the aortic valve. There is no aortic valve stenosis. There is no aortic valve regurgitation. Mitral Valve The mitral valve appears normal. There is no mitral valve regurgitation. There is no mitral valve stenosis. Pulmonic Valve The pulmonic valve is likely normal. Tricuspid Valve There is mild tricuspid valve regurgitation. There is no evidence of pulmonary hypertension. Great Vessels The asc aorta and aortic arch are normal in size. Venous The inferior vena cava is normal in size and collapses greater than 50% with inspiration. Pericardium/Pleural There is no evidence of pericardial effusion. Prior Study Comparison No significant change compared to prior study dated: 04/17/2021. Recommendations, Care & Conclusions No obvious valvular pathology seen on this study. Measurements 2D Linear Measurements IVSd: 0.91 0.6-0.9/0.6-1.0 cm LVIDd: 5.60 3.9-5.3/4.2-5.9 cm LVIDd Index: 2.49 2.4-3.2/2.2-3.1 cm/m2 LVIDs: 3.77 2.0-3.6 cm LVPWd: 0.81 0.7-1.1 cm LA Diam: 4.00 2.7-3.8/3.0-4.0 cm LAIDs Index: 1.78 1.5-2.3 cm/m2 LV Mass: 224.94 67-162/88-224 g LV Mass Index: 99.97 43-95/49-115 g/m2 LVOT Diam: 2.10 3.0+(-)1.3 cm 2D Systolic Function EF 4C: 56.60 >55% EF 2C: 66.60 >55% EF BiP: 61.90 >55% Mitral Valve MV Pk E: 0.94 MV PK A: 0.67 MV Decel Time: 218.00 E/A: 1.40 E'Lateral: 10.80 E'Medial: 8.27 E/E' Med: 11.40 E/E' Lat: 8.70 PHT: 64.00 MVA PHT: 3.44 Decel Morton: 4.32 Aortic Valve AoV Pk Thierry: 1.47 AoV Pk Grad: 9.00 LEON: 2.88 LVOT LVOT Pk Thierry: 1.16 LVOT Mn Thierry: 0.71 LVOT VTI: 0.28 LVOT Pk Grad: 5.00 LVOT Mn Grad: 3.00 LVOT Diam: 2.10 LVOT Area: 3.46 Diastolic Function MV Pk E: 0.94 MV Pk A: 0.67 E/A: 1.40 E'Medial: 8.27 E/E' Med: 11.40 E' Laterial: 10.80 E/E' Lat: 8.70 Right Ventricle TAPSE (mm): 29.80 TVS' Thierry: 13.70 Tricuspid Valve TR Pk Thierry: 2.28 TR Pk Grad: 21.00 RA Press: 3.00 RVSP: 24.00 Great Vessels Aorta Sinus of Valsalva: 3.40 2.0-3.5 cm Ao Asc: 3.30 2.1-3.4 cm Ao Arch: 3.10 Ao Desc: 2.10 Pulmonary Valve PV Pk Thierry: 0.88 Peak PV Grad: 3.00 Updated in Other Vendor System with Status of Final Haider Arguello MD electronically signed on 11/12/2023 9:38:13 AM with status of Final
--- NOTE | 2023-11-10 07:41 | CA_ITS ---
Acquisition Time: 2023-11-10 08:49:58 Total Exercise Time: 00:07:24 Test Indications: ATYPICAL CHEST PAIN Medications: Protocol: CHRISTINA Max HR: 146 BPM 92% of Pred: 158 BPM Max BP: 178/078 mmHG Max Work Load: 9.1 METS Exercise stress test exercise 7 min 24 sec of Christina protocol achieivng 92% MPHR, with mild SOB, no chest discomfort, with isolated PVCs, ventricular cuplet, with normotensive response to exercise, without EKG changes. Test reviewed with Dr. Arguello. Referred By: Rahul Oneal Overread By: Hilda Ku
== END ==
LOC: HO.CARD 07:38
PROVIDERS: PCP Internal Medicine; Visit Provider Internal Medicine Cardiovascular Disease
DX: R07.89 Other chest pain (principal); I48.92 Unspecified atrial flutter
CPT/HCPCS: 93017; 93306; Q9957

== ENCOUNTER → 2023-11-10 07:41 | Outpatient (BNV) | payer OTHER, SELFPAY | PROVIDERS: PCP Internal Medicine; Visit Provider Nurse Practitioner | DX: I36.1 Nonrheumatic tricuspid (valve) insufficiency (principal); I35.8 Other nonrheumatic aortic valve disorders | CPT/HCPCS: 93016; 93018; 93320; 93325; 93350; 93352 ==

== ENCOUNTER 2024-01-23 08:33 | Outpatient (AMB) | payer OTHER, SELFPAY ==
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
[2024-01-23 08:39] VITALS: BP 142/80; PULSE 53; TEMP 36.9; O2SAT 95; BMI 35.6
--- OUTSIDE RECORDS SUMMARY | 2024-01-25 13:00 | XMS_ITS | Continuity of Care Document ---
Author Name [facility] Organization [facility] Care Team Providers Care Stitch Separator Name Role Phone [facility] Unavailable Unavailable Problems Combined list of problems from Department of Defense and Veterans Affairs facilities. It does not include entries that were removed or entered in error. Problem Status Onset Date Problem Type Date of Resolution Comments Source Tobacco dependence in remission Active 007 Condition [facility] visit for: issue repeat prescription Active Condition visit for: issu e repeat prescription DoD plantar fasciitis Active Condition PLANTAR FASC IITIS DoD Other Physical Therapy Active Condition Other Physical Therapy DoD Administrative Evaluation Services Inactive Condition Administrative Evaluation Services DoD foot pain (soft tissue) Active Condition soft tissue escobar t pain DoD unspecified muscle strain Inactive Condition UNSPECIFIED MUSCLE STRAIN DoD dermatophytosis Inactive Condition DERMATOPHYTOS IS DoD dermatophytosis nails onychomycosis Inactive Condition DERMATOPHYTOSI S NAILS ONYCHOMYCOSIS DoD corns Inactive Condition CORNS DoD dermatophytosis tinea pedis Active Condition DERMATOPHYTOSIS TINEA PEDIS DoD Asthma (SCT [id number]) Active Condition Dec 29, 2020 Entered By: DUNCAN COATES Comment: MILD [facility] Atrial fibrillation (SNOMED CT [id number]) Active Condition Dec 29, 2020 Entered By: DUNCAN COATES Comment: with 2:1 block [facility] Bradycardia Active Condition [place] Colonoscopy Screening Active Condition Sep 08, 2021 Entered By: KWAN CARVER Comment: 06/22/16 - Dr Vince corey, Repeat due in 5 years 06/22/2021 [facility] Delusional disorder Active Condition [facility] ECHO Active Condition Dec 29 Entered By: DUNCAN COATES Comment: 02/24/18 [place] - EF 45-50%, left atrium likely dilated, mild mitral valve regurg [facility] Exercise Stress Test Active Condition Dec 29, 2020 Entered By: DUNCAN COATES Comment: 03/13/18 - [place] Protocol - no echocardiogenic evidence of ischemia - Dr Oneal [facility] History of alcohol abuse Active Condition Dec 29, 2020 Entered By: DUNCAN COATES Comment: as of 2020 - sober x 18 yrs [facility] Housing adequate Active Condition [facility] Housing instability due to imminent risk of homelessness Active Condition [facility] Irritable bowel syndrome with diarrhea Active Condition [facility] Obesity Active Condition [facility] Obsessive compulsive disorder Active Condition [facility] Paranoid disorder Active Condition [facility] Schizophrenia Active Condition [facility] Diagnosis: ICD-10-CM F22 Delusional disorders Active Diagnosis [facility] Diagnosis: ICD-10-CM Z59.9 Problem related to housing and economic circumstances, unsp Active Diagnosis [place] Diagnosis: ICD-10-CM Z23 Encounter for immunization Active Diagnosis [place] Diagnosis: ICD-10-CM F20.9 Schizophrenia, unspecified Active Diagnosis [facility] Diagnosis: ICD-10-CM L60.3 Nail dystrophy [facility] Diagnosis: ICD-10-CM I48.0 Paroxysmal atrial fibrillation Active Diagnosis [place] Diagnosis: ICD-10-CM R00.1 Bradycardia, unspecified Active Diagnosis [place] Diagnosis: ICD-10-CM R09.81 Nasal congestion Active Diagnosis [facility] Medications Combined list of outpatient medications from Department of Defense and Veterans Affairs facilities.Medications provided include 1) outpatient medications from the last 15 months, and 2) patient-reported medications. Medication Details Route Status Patient Instructions Prescription Expires Prescription Number Last Dispense Date Ordering Provider Order Date Order Qty Source ACETAMINOPH EN 500MG TAB TAKE ONE TABLET BY MOUTH THREE TIMES DAILY NEEDED ORAL ACTIVE SRAVAN COATES SA 2022 [place] FLONASE-OTC (BRAND) 50 MCG FABIANA SPSN [9.9] INSTILL 1 SPRAY INTO EACH NOSTRIL ONCE DAILY NEEDED FOR NASAL IRRITATI ON/INFLA MMATION 07/12/2023 [id number] ORIANA NOEL 2023 3 [facility] FLUTICASONE PROPIONATE 50MCG/SPRAY SOLN,NASAL, 16GM INSTILL 1 SPRAY INTO EACH NOSTRIL ONCE DAILY NEEDED FOR NASAL IRRITATI ON/INFLA MMATION NASAL 07/12/2023 [id number] 4 Rei NOEL 2023 3 [place] Loratadine (Alavert ODT) Tablet 10 mg Oral TAKE ONE TABLET BY MOUTH ONCE DAILY NEEDED FOR ALLERGY 07/12/2023 [id number] 4 ORIANA NOEL 2023 90 [facility] LORATADINE 10MG TAB TAKE ONE TABLET BY MOUTH ONCE DAILY NEEDED FOR ALLERGY ORAL 07/12/2023 [id number] 4 Rei NOEL 2023 90 [place] METOPROLOL TARTRATE 50MG TAB TAKE ONE TABLET BY MOUTH TWICE DAILY ORAL ACTIVE SRAVAN COATES SA [place] Paliperidon e (Invega Eq.) Tablet Extended Release 1.5 mg Oral TAKE THREE TABLETS BY MOUTH ONCE DAILY 12/31/2023 [id number] 4 MARCIN GALAVIZ 2023 270 [facility] Paliperidon e (Invega Eq.) Tablet Extended Release 1.5 mg Oral TAKE THREE TABLETS BY MOUTH ONCE DAILY 12/31/2023 [id number] 3 MARCIN GALAVIZ 2022 270 [facility] PALIPERIDON E 1.5MG TAB,SA TAKE THREE TABLETS BY MOUTH ONCE DAILY ORAL ACTIVE 12/30/2024 [id number] 4 IRVING MEDEIROS 2023 270 [facility] PALIPERIDON E 1.5MG TAB,SA TAKE THREE TABLETS BY MOUTH ONCE DAILY ORAL DISCONT INUED BY PROVIDE R 12/31/2023 [id number] 4 MARCIN GALAVIZ 2022 270 [facility] PALIPERIDON E 1.5MG TAB,SA TAKE THREE TABLETS BY MOUTH ONCE DAILY ORAL DISCONT INUED 05/25/2023 [id number] 3 MARCIN GALAVIZ 2022 270 [facility] Allergies, Adverse Reactions, Alerts Combined list of allergies from Department of Defense and Veterans Affairs facilities. It does not include entries that were removed or entered in error. Substance Category Reaction Severity Reaction type Status Date Reported Comments Source No Known Allergies Drug allergy (disorder) active 07/09/2007 [facility] Immunizations Combined list of available immunizations from the Department of Defense and Veterans Affairs facilities. Immunization Series Date Given Administered By Site Reaction Lot Number CVX Code Drug Machine Chocolate Molder Status Comments Source INFLUENZA, SPLIT VIRUS, TRIVALENT, PF 2023 CELESTE MCKEON RIGHT DELTO ID [id number] 140 complet ed [place] [facility] A, ADULT 2023 YEN FELDMAN RIGHT DELTO ID [id number] 52 complet ed [place] [facility] A, ADULT 2023 REILLY PFEIFFER LEFT DELTO ID [id number] 52 complet ed [place] INFLUENZA, INJECTABLE, QUADRIVALENT, PRESERVATIVE FREE 2022 CELESTE MCKEON RIGHT DELTO ID [id number] A 150 complet ed [place] INFLUENZA, INJECTABLE, QUADRIVALENT, PRESERVATIVE FREE 2021 150 complet ed [place] COVID-19 (PFIZER), MRNA, LNP-S, PF, 30 MCG/0.3 ML DOSE 3 2020 208 complet ed [facility] INFLUENZA, UNSPECIFIED FORMULATION 2020 88 complet ed [facility] COVID-19 (PFIZER), MRNA, LNP-S, PF, 30 MCG/0.3 ML DOSE 2 2020 208 complet ed [facility] COVID-19 (PFIZER), MRNA, LNP-S, PF, 30 MCG/0.3 ML DOSE 2 2020 208 complet ed [facility] COVID-19 (PFIZER), MRNA, LNP-S, PF, 30 MCG/0.3 ML DOSE 1 2020 208 complet ed [facility] COVID-19 (PFIZER), MRNA, LNP-S, PF, 30 MCG/0.3 ML DOSE 1 2019 208 complet ed [facility] INFLUENZA, UNSPECIFIED FORMULATION 2019 88 complet ed [facility] [place] INFLUENZA, SEASONAL, INJECTABLE 2018 141 complet ed at [facility] TDAP 2017 115 complet ed [facility] DTAP, UNSPECIFIED FORMULATION 2013 107 complet ed Site: Left Deltoid [facility] FLU,3 YRS (HISTORICAL) 2012 88 complet ed [facility] PNEUMOCOCCAL, UNSPECIFIED FORMULATION 2012 109 complet ed PT WOULD LIKE SHOT [facility] FLU,3 YRS (HISTORICAL) 2011 88 complet ed [facility] FLU,3 YRS (HISTORICAL) 2009 88 complet ed Site: Right Deltoid [facility] TD(ADULT) UNSPECIFIED FORMULATION 2006 139 complet ed [facility] influenza virus vaccine, split virus (incl. purified surface antigen)-reti red CODE 1 2005 Unknown, Provider [id number] 15 Sanofi Pasteur (PMC) complet ed influenza virus vaccine, split virus (incl. purified surface antigen)- retired CODE DoD hepatitis B vaccine, adult dosage 3 2005 Unknown, Provider UNK 43 Unknown (UNK) complet ed hepatitis B vaccine, adult dosage DoD anthrax vaccine 3 2004 Unknown, Provider [id number] [facility] [employer] [place] (MIP) complet ed anthrax vaccine DoD vaccinia (smallpox) vaccine 1 2004 Unknown, Provider [id number] Hermilo (WAL) complet ed vaccinia (smallpox ) vaccine DoD anthrax vaccine 2 2004 Unknown, Provider [id number] [employer] [place] (MIP) complet ed anthrax vaccine DoD anthrax vaccine 1 2004 Unknown, Provider [id number] 24 [employer] [place] ([facility]) complet ed anthrax vaccine DoD hepatitis B vaccine, adult dosage 2 2004 Unknown, Provider [id number] Merck (MSD) complet ed hepatitis B vaccine, adult dosage DoD typhoid Vi capsular polysaccharid e vaccine 1 2004 Unknown, Provider [id number] [employer] (AVB) complet ed typhoid Vi capsular polysacch aride vaccine DoD hepatitis A vaccine, adult dosage 2 2004 Unknown, Provider [id number] 52 Unknown (UNK) complet ed hepatitis A vaccine, adult dosage DoD measles, mumps and rubella virus vaccine 1 2003 Unknown, Provider [id number] Unknown (UNK) complet ed measles, mumps and rubella virus vaccine DoD poliovirus vaccine, inactivated 1 2003 Unknown, Provider [id number] 10 Unknown (UNK) complet ed polioviru s vaccine, inactivat ed DoD hepatitis A and hepatitis B vaccine 1 2003 Unknown, Provider [id number] 104 Unknown (UNK) complet ed hepatitis A and hepatitis B vaccine DoD tetanus and diphtheria toxoids, adsorbed, preservative free, for adult use (2 Lf of tetanus toxoid and 2 Lf of diphtheria toxoid) 1 2003 Unknown, Provider UNK 09 Unknown (UNK) complet ed tetanus and diphtheri a toxoids, adsorbed, preservat juan josé free, for adult use (2 Lf of tetanus toxoid and 2 Lf of diphtheri a toxoid) DoD Results Combined list of recent chemistry, hematology and other laboratory results from Department of Defense and Veterans Affairs, ranging from 15 months to all on record, depending upon the facility. Order Name Results Value Reference Range Date Interpretation Specimen Comments Source BASIC METABOLIC PANEL (fasting) UREA NITROGEN [MASS/VOLUM E] IN SERUM OR PLASMA 17 mg/dL 7 - 10/04 Specimen Type: SERUM No comment entered. Ordering Provider: MARCIN GALAVIZ Report Released Date/Time: Sep 27, 2022 01:26 PM Reporting Lab: [facility] [place] [facility] [address] [address] Performing Lab: [facility] [place] [facility] [address] [address] [facility] BASIC METABOLIC PANEL (fasting) GLUCOSE [MASS/VOLUM E] IN SERUM OR PLASMA 95 mg/dL 65 - 100 10/04 Specimen Type: SERUM No comment entered. Ordering Provider: MARCIN GALAVIZ Report Released Date/Time: Sep 27, 2022 01:26 PM Reporting Lab: [facility] [place] [facility] [address] [address] Performing Lab: [facility] [place] [facility] [address] [address] [facility] BASIC METABOLIC PANEL (fasting) SODIUM [MOLES/VOLU ME] IN SERUM OR PLASMA 140 mmol/L 135 - 145 10/04 Specimen Type: SERUM No comment entered. Ordering Provider: MARCIN GALAVIZ Report Released Date/Time: Sep 27, 2022 01:26 PM Reporting Lab: [facility] [place] [facility] [address] [address] Performing Lab: [facility] [place] [facility] [address] [address] [facility] BASIC METABOLIC PANEL (fasting) POTASSIUM [MOLES/VOLU ME] IN SERUM OR PLASMA 4.1 mmol/L 3.5 - 5.0 10/04 Specimen Type: SERUM No comment entered. Ordering Provider: MARCIN GALAVIZ Report Released Date/Time: Sep 27, 2022 01:26 PM Reporting Lab: [facility] [place] [facility] [address] [address] Performing Lab: [facility] [place] [address] [address] [facility] BASIC METABOLIC PANEL (fasting) CHLORIDE [MOLES/VOLU ME] IN SERUM OR PLASMA 106 mmol/L 100 - 110 10/04 Specimen Type: SERUM No comment entered. Ordering Provider: MARCIN GALAVIZ Report Released Date/Time: Sep 27, 2022 01:26 PM Reporting Lab: [facility] [place] [facility] [address] [address] Performing Lab: [facility] [address] [address] [facility] BASIC METABOLIC PANEL (fasting) CARBON DIOXIDE, TOTAL [MOLES/VOLU ME] IN SERUM OR PLASMA 26 meq/L 20 - 30 10/04 Specimen Type: SERUM No comment entered. Ordering Provider: MARCIN GALAVIZ Report Released Date/Time: Sep 27, 2022 01:26 PM Reporting Lab: [facility] [address] Performing Lab: [facility] [address] [facility] BASIC METABOLIC PANEL (fasting) CREATININE [MASS/VOLUM E] IN SERUM OR PLASMA 0.75 mg/dL 0.50 - 1.40 10/04 Specimen Type: SERUM No comment entered. Ordering Provider: MARCIN GALAVIZ Report Released Date/Time: Sep 27, 2022 01:26 PM Reporting Lab: [facility] [address] Performing Lab: [facility] [address] [facility] BASIC METABOLIC PANEL (fasting) GLOMERULAR FILTRATION RATE/1.73 SQ M.PREDICTED [VOLUME RATE/AREA] IN SERUM, PLASMA OR BLOOD BY CREATININE- BASED FORMULA (CKD-EPI) >90mL/ min 60 10/04 Specimen Type: SERUM No comment entered. Ordering Provider: MARCIN GALAVIZ Report Released Date/Time: Sep 27, 2022 01:26 PM Reporting Lab: [facility] [address] Performing Lab: [facility] [address] [facility] [place] [facility] CBC AND DIFF (AUTO) LEUKOCYTES [#/VOLUME] IN BLOOD BY AUTOMATED COUNT 6.25 10*3/u L 4.50 - 11.00 10/04 Specimen Type: BLOOD No comment entered. Ordering Provider: MARCIN GALAVIZ Report Released Date/Time: Sep 27, 2022 01:26 PM Reporting Lab: [facility] [place] [facility] [address] [address] Performing Lab: [facility] [address] [address] [facility] CBC AND DIFF (AUTO) ERYTHROCYTE S [#/VOLUME] IN BLOOD BY AUTOMATED COUNT 4.62 10*6/u L 4.23 - 5.66 10/04 Specimen Type: BLOOD No comment entered. Ordering Provider: MARCIN GALAVIZ Report Released Date/Time: Sep 27, 2022 01:26 PM Reporting Lab: [facility] [place] [address] [address] Performing Lab: [facility] [place] [address] [address] [facility] [place] [facility] CBC AND DIFF (AUTO) HEMOGLOBIN [MASS/VOLUM E] IN BLOOD 13.1 g/dL 12.8 - 17 10/04 Specimen Type: BLOOD No comment entered. Ordering Provider: MARCIN GALAVIZ Report Released Date/Time: Sep 27, 2022 01:26 PM Reporting Lab: [facility] [place] [address] [address] Performing Lab: [facility] [place] [facility] [address] [address] [facility] [place] [facility] CBC AND DIFF (AUTO) HEMATOCRIT [VOLUME FRACTION] OF BLOOD BY AUTOMATED COUNT 39.8 39.2 - 50.4 10/04 Specimen Type: BLOOD No comment entered. Ordering Provider: MARCIN GALAVIZ Report Released Date/Time: Sep 27, 2022 01:26 PM Reporting Lab: [facility] [place] [address] [address] Performing Lab: [facility] [address] [address] [facility] [place] [facility] CBC AND DIFF (AUTO) MCV [ENTITIC VOLUME] BY AUTOMATED COUNT 86.1 fL 82 - 99 10/04 Specimen Type: BLOOD No comment entered. Ordering Provider: MARCIN GALAVIZ Report Released Date/Time: Sep 27, 2022 01:26 PM Reporting Lab: [facility] [address] [address] Performing Lab: [facility] [address] [address] [facility] [place] [facility] CBC AND DIFF (AUTO) MCHC [MASS/VOLUM E] BY AUTOMATED COUNT 32.9 g/dL 30.8 - 35.1 10/04 Specimen Type: BLOOD No comment entered. Ordering Provider: MARCIN GALAVIZ Report Released Date/Time: Sep 27, 2022 01:26 PM Reporting Lab: [facility] [place] [facility] [address] [address] Performing Lab: [facility] [place] [facility] [address] [address] [facility] [place] [facility] CBC AND DIFF (AUTO) PLATELETS [#/VOLUME] IN BLOOD BY AUTOMATED COUNT 256 10*3/u L 140 - 360 10/04 Specimen Type: BLOOD No comment entered. Ordering Provider: MARCIN GALAVIZ Report Released Date/Time: Sep 27, 2022 01:26 PM Reporting Lab: [facility] [place] [facility] [address] [address] Performing Lab: [facility] [place] [facility] [address] [address] [facility] [place] [facility] CBC AND DIFF (AUTO) ERYTHROCYTE DISTRIBUTIO N WIDTH [RATIO] BY AUTOMATED COUNT 13.1 12.0 - 16.0 10/04 Specimen Type: BLOOD No comment entered. Ordering Provider: MARCIN GALAVIZ Report Released Date/Time: Sep 27, 2022 01:26 PM Reporting Lab: [facility] [place] [facility] [address] [address] Performing Lab: [facility] [place] [facility] [address] [address] [facility] CBC AND DIFF (AUTO) MONOCYTES [#/VOLUME] IN BLOOD BY AUTOMATED COUNT 0.55 10*3/u L 0.30 - 1.10 10/04 Specimen Type: BLOOD No comment entered. Ordering Provider: MARCIN GALAVIZ Report Released Date/Time: Sep 27, 2022 01:26 PM Reporting Lab: [facility] [place] [facility] [address] [address] Performing Lab: [facility] [place] [facility] [address] [address] [facility] CBC AND DIFF (AUTO) MCH [ENTITIC MASS] BY AUTOMATED COUNT 28.4 pg 26.2 - 32.6 10/04 Specimen Type: BLOOD No comment entered. Ordering Provider: MARCIN GALAVIZ Report Released Date/Time: Sep 27, 2022 01:26 PM Reporting Lab: [facility] [place] [facility] [address] [address] Performing Lab: [facility] [place] [facility] [address] [address] [facility] CBC AND DIFF (AUTO) NEUTROPHILS /100 LEUKOCYTES IN BLOOD BY AUTOMATED COUNT 54.0 43.7 - 75.8 10/04 Specimen Type: BLOOD No comment entered. Ordering Provider: MARCIN GALAVIZ Report Released Date/Time: Sep 27, 2022 01:26 PM Reporting Lab: [facility] [address] [address] Performing Lab: [facility] [place] [facility] [address] [address] [facility] CBC AND DIFF (AUTO) LYMPHOCYTES /100 LEUKOCYTES IN BLOOD BY AUTOMATED COUNT 33.1 14.0 - 42.3 10/04 Specimen Type: BLOOD No comment entered. Ordering Provider: MARCIN GALAVIZ Report Released Date/Time: Sep 27, 2022 01:26 PM Reporting Lab: [facility] [place] [facility] [address] [address] Performing Lab: [facility] [place] [facility] [address] [address] [facility] CBC AND DIFF (AUTO) MONOCYTES/1 00 LEUKOCYTES IN BLOOD BY AUTOMATED COUNT 8.8 5.1 - 13.7 10/04 Specimen Type: BLOOD No comment entered. Ordering Provider: MARCIN GALAVIZ Report Released Date/Time: Sep 27, 2022 01:26 PM Reporting Lab: [facility] [place] [facility] [address] [address] Performing Lab: [facility] [place] [facility] [address] [address] [facility] [place] [facility] CBC AND DIFF (AUTO) EOSINOPHILS /100 LEUKOCYTES IN BLOOD BY AUTOMATED COUNT 3.0 0.4 - 6.8 10/04 Specimen Type: BLOOD No comment entered. Ordering Provider: MARCIN GALAVIZ Report Released Date/Time: Sep 27, 2022 01:26 PM Reporting Lab: [facility] [place] [facility] [address] [address] Performing Lab: [facility] [place] [facility] [address] [address] [facility] [place] [facility] CBC AND DIFF (AUTO) BASOPHILS/1 00 LEUKOCYTES IN BLOOD BY AUTOMATED COUNT 0.8 0.1 - 2.0 10/04 Specimen Type: BLOOD No comment entered. Ordering Provider: MARCIN GALAVIZ Report Released Date/Time: Sep 27, 2022 01:26 PM Reporting Lab: [facility] [place] [facility] [address] [address] Performing Lab: [facility] [place] [facility] [address] [address] [facility] CBC AND DIFF (AUTO) NEUTROPHILS [#/VOLUME] IN BLOOD BY AUTOMATED COUNT 3.37 10*3/u L 2.20 - 7.60 10/04 Specimen Type: BLOOD No comment entered. Ordering Provider: MARCIN GALAVIZ Report Released Date/Time: Sep 27, 2022 01:26 PM Reporting Lab: [facility] [place] [facility] [address] [address] Performing Lab: [facility] [place] [facility] [address] [address] [facility] CBC AND DIFF (AUTO) LYMPHOCYTES [#/VOLUME] IN BLOOD BY AUTOMATED COUNT 2.07 10*3/u L 1.00 - 3.20 10/04 Specimen Type: BLOOD No comment entered. Ordering Provider: MARCIN GALAVIZ Report Released Date/Time: Sep 27, 2022 01:26 PM Reporting Lab: [facility] [place] [facility] [address] [address] Performing Lab: [facility] [place] [facility] [address] [address] [facility] [place] [facility] CBC AND DIFF (AUTO) EOSINOPHILS [#/VOLUME] IN BLOOD BY AUTOMATED COUNT 0.19 10*3/u L 0.03 - 0.44 10/04 Specimen Type: BLOOD No comment entered. Ordering Provider: MARCIN GALAVIZ Report Released Date/Time: Sep 27, 2022 01:26 PM Reporting Lab: [facility] [place] [facility] [address] [address] Performing Lab: [facility] [place] [facility] [address] [address] [facility] [place] [facility] CBC AND DIFF (AUTO) BASOPHILS [#/VOLUME] IN BLOOD BY AUTOMATED COUNT 0.05 10*3/u L 0.01 - 0.13 10/04 Specimen Type: BLOOD No comment entered. Ordering Provider: MARCIN GALAVIZ Report Released Date/Time: Sep 27, 2022 01:26 PM Reporting Lab: [facility] [place] [facility] [address] [address] Performing Lab: [facility] [place] [facility] [address] [address] [facility] CBC AND DIFF (AUTO) IMMATURE GRANULOCYTE S/100 LEUKOCYTES IN BLOOD BY AUTOMATED COUNT 0.3 0.0 - 0.7 10/04 Specimen Type: BLOOD No comment entered. Ordering Provider: MARCIN GALAVIZ Report Released Date/Time: Sep 27, 2022 01:26 PM Reporting Lab: [facility] [address] [address] Performing Lab: [facility] [address] [address] [facility] CBC AND DIFF (AUTO) IMMATURE GRANULOCYTE S [#/VOLUME] IN BLOOD 0.02 10*3/u L 0.00 - 0.06 10/04 Specimen Type: BLOOD No comment entered. Ordering Provider: MARCIN GALAVIZ Report Released Date/Time: Sep 27, 2022 01:26 PM Reporting Lab: [facility] [address] [address] Performing Lab: [address] [address] [facility] HEMOGLOBI N A1C PANEL HEMOGLOBIN A1C/HEMOGLO BIN.TOTAL IN BLOOD BY HPLC 5.6 4.0 - 5.6 10/04 Specimen Type: BLOOD Comment: Values obtained from A1C measurement s can vary. For atypical A1C assays, a reported value of 7.0 could actually be between 6.72 and 7.28 if measured by a reference method. A reported value of 9.0 could actually be between 8.73 and 9.27. Ref: http://www. ngsp.org/[place] Pdata.asp Ordering Provider: MARCIN GALAVIZ Report Released Date/Time: Sep 27, 2022 01:26 PM Reporting Lab: [facility] [address] [address] Performing Lab: [address] [address] [facility] LIPID PANEL FASTING CHOLESTEROL [MASS/VOLUM E] IN SERUM OR PLASMA 193 mg/dL 10/04 Specimen Type: SERUM No comment entered. Ordering Provider: MARCIN GALAVIZ Report Released Date/Time: Sep 27, 2022 01:26 PM Reporting Lab: [facility] [address] [address] Performing Lab: [facility] [place] [facility] [address] [address] [facility] [facility] LIPID PANEL FASTING TRIGLYCERID E [MASS/VOLUM E] IN SERUM OR PLASMA 62 mg/dL 0 - 150 10/04 Specimen Type: SERUM No comment entered. Ordering Provider: MARCIN GALAVZI Report Released Date/Time: Sep 27, 2022 01:26 PM Reporting Lab: [facility] [place] [facility] [address] [address] Performing Lab: [facility] [place] [facility] [address] [address] [facility] [facility] LIPID PANEL FASTING CHOLESTEROL IN LDL [MASS/VOLUM E] IN SERUM OR PLASMA BY CALCULATION 133 mg/dL 0 - 129 10/04 H Specimen Type: SERUM No comment entered. Ordering Provider: MARCIN GALAVIZ Report Released Date/Time: Sep 27, 2022 01:26 PM Reporting Lab: [facility] [place] [facility] [address] [address] Performing Lab: [facility] [place] [facility] [address] [address] [facility] LIPID PANEL FASTING CHOLESTEROL .TOTAL/CHOL ESTEROL IN HDL [MASS RATIO] IN SERUM OR PLASMA 4.0 10/04 Specimen Type: SERUM No comment entered. Ordering Provider: MARCIN GALAVIZ Report Released Date/Time: Sep 27, 2022 01:26 PM Reporting Lab: [facility] [place] [facility] [address] [address] Performing Lab: [facility] [place] [facility] [address] [address] [facility] [place] [facility] LIPID PANEL FASTING CHOLESTEROL IN HDL [MASS/VOLUM E] IN SERUM OR PLASMA 48 mg/dL 40 - 60 10/04 Specimen Type: SERUM No comment entered. Ordering Provider: MARCIN GALAVIZ Report Released Date/Time: Sep 27, 2022 01:26 PM Reporting Lab: [facility] [place] [facility] [address] [address] Performing Lab: [facility] [place] [facility] [address] [address] [facility] [place] [facility] LIVER FUNCTION PROTEIN [MASS/VOLUM E] IN SERUM OR PLASMA 7.0 g/dL 6.0 - 8.3 10/04 Specimen Type: SERUM No comment entered. Ordering Provider: MARCIN GALAVIZ Report Released Date/Time: Sep 27, 2022 01:26 PM Reporting Lab: [facility] [place] [facility] [address] [address] Performing Lab: [facility] [place] [facility] [address] [address] [facility] [place] [facility] LIVER FUNCTION ALBUMIN [MASS/VOLUM E] IN SERUM OR PLASMA 4.4 g/dL 3.5 - 5.0 10/04 Specimen Type: SERUM No comment entered. Ordering Provider: MARCIN GALAVIZ Report Released Date/Time: Sep 27, 2022 01:26 PM Reporting Lab: [facility] [place] [facility] [address] [address] Performing Lab: [facility] [place] [facility] [address] [address] [facility] [place] [facility] LIVER FUNCTION ALKALINE PHOSPHATASE [ENZYMATIC ACTIVITY/VO LUME] IN SERUM OR PLASMA 72 U/L 40 - 150 10/04 Specimen Type: SERUM No comment entered. Ordering Provider: MARCIN GALAVIZ Report Released Date/Time: Sep 27, 2022 01:26 PM Reporting Lab: [facility] [place] [facility] [address] [address] Performing Lab: [facility] [place] [facility] [address] [address] [facility] [place] [facility] LIVER FUNCTION ASPARTATE AMINOTRANSF ERASE [ENZYMATIC ACTIVITY/VO LUME] IN SERUM OR PLASMA 25 U/L 5 - 34 10/04 Specimen Type: SERUM No comment entered. Ordering Provider: MARCIN GALAVIZ Report Released Date/Time: Sep 27, 2022 01:26 PM Reporting Lab: [facility] [place] [facility] [address] [address] Performing Lab: [facility] [place] [facility] [address] [address] [facility] [place] [facility] LIVER FUNCTION ALANINE AMINOTRANSF ERASE [ENZYMATIC ACTIVITY/VO LUME] IN SERUM OR PLASMA 43 U/L 10/04 Specimen Type: SERUM No comment entered. Ordering Provider: MARCIN GALAVIZ Report Released Date/Time: Sep 27, 2022 01:26 PM Reporting Lab: [facility] [place] [facility] [address] [address] Performing Lab: [facility] [place] [facility] [address] [address] [facility] [place] [facility] LIVER FUNCTION BILIRUBIN.T OTAL [MASS/VOLUM E] IN SERUM OR PLASMA 0.6 mg/dL 0.2 - 1.2 10/04 Specimen Type: SERUM No comment entered. Ordering Provider: MARCIN GALAVIZ Report Released Date/Time: Sep 27, 2022 01:26 PM Reporting Lab: [facility] [place] [facility] [address] [address] Performing Lab: [facility] [place] [facility] [address] [address] [facility] TSH THYROTROPIN [UNITS/VOLU ME] IN SERUM OR PLASMA < 0.06u[ IU]/mL 0.35 - 5.00 10/04 Specimen Type: SERUM No comment entered. Ordering Provider: MARCIN GALAVIZ Report Released Date/Time: Sep 27, 2022 01:26 PM Reporting Lab: [facility] [place] [facility] [address] [address] Performing Lab: [facility] [place] [address] [address] [facility] [place] [facility] Vital Signs Combined list of inpatient and outpatient Vital Signs from Department of Defense and Veterans Affairs, ranging from 12 months to all on record, depending upon the facility. Vital Sign Value Date Comments Source SYSTOLIC BLOOD PRESSURE 154 09/09/19 24 10:43:51 [facility] [place] DIASTOLIC BLOOD PRESSURE 82 024 10:43:51 [facility] [place] PULSE OXIMETRY 96 09/09/2023 10:43:51 [facility] WEIGHT 241.6 09/09/2023 10:43:51 [facility] [place] BMI 35kg/m2 09/09/2023 10:43:51 [facility] PAIN 0 09/09/2023 10:43:51 [facility] HEIGHT 70 09/09/2023 10:43:51 [facility] [place] TEMPERATURE 98.5 09/09/2023 10:43:51 [facility] [place] PULSE 50 09/09/2023 10:43:51 [facility] [place] RESPIRATION 18 09/09/2023 10:43:51 [facility] [place] [facility] SYSTOLIC BLOOD PRESSURE 150 04/13/19 08:57:00 [facility] DIASTOLIC BLOOD PRESSURE 73 024 08:57:00 [facility] PULSE OXIMETRY 95 04/13/2023 08:57:00 [facility] PAIN 0 04/13/2023 08:57:00 [facility] TEMPERATURE 97.8 04/13/2023 08:57:00 [facility] PULSE 46 04/13/2023 08:57:00 [facility] RESPIRATION 17 04/13/2023 08:57:00 [facility] Encounters Combined list of: 1) Encounters from Department of Veterans Affairs facilities going back up to thelast 18 months. 2) Encounters from the Department of Defense facilities going back up to 280 months. Location Location Details Encounter Type Encounter Number Reason For Visit Attending Provider ADM Date DC Date Status Disposition Source Theater Facility OUTPATIENT [id number] Theater Provider 01/04 Released with Work/Duty Limitations [facility] Fac[facility] Facility OUTPATIENT [id number] 01/12 Released with Work/Duty Limitations [facility] OUTPATIENT [id number] 02/11 Released w/o Limitations Theater Facilit [facility] Facility OUTPATIENT [id number] 03/24 Released with Work/Duty Limitations Theater Fac[facility] Facility OUTPATIENT [id number] 03/25 Released w/o Limitations Theater [facility] Facility OUTPATIENT [id number] 04/02 Released w/o Limitations Theater Fac[facility] Facility OUTPATIENT [id number] 04/05 Released w/o Limitations [facility] OUTPATIENT [id number] 04/07 Released w/o Limitations [facility] OUTPATIENT [id number] 04/10 Released w/o Limitations [facility] OUTPATIENT [id number] 04/16 Released w/o Limitations [facility] OUTPATIENT [id number] 04/20 Released w/o Limitations [facility] Facility OUTPATIENT [id number] 04/22 Released w/o Limitations [facility] OUTPATIENT [id number] 04/23 Released with Work/Duty Limitations [facility] Facility OUTPATIENT [id number] 04/24 Released w/o Limitations Theater Facilit y [facility] MTMS BY PHARM ADDL 15 MIN [id number] Diagnos is: ICD-10- CM F20.9 Schizop hrenia, unspeci fied
GALAVIZ,MARCIN 07/26 [facility] [place] [facility] [place] [facility] PRO PHONE CALL 5-10 MIN [id number] Diagnos is: ICD-10- CM Z59.9 Problem related to housing and economi c circums tances, unsp
SERGIO-RILEY ZFRANKLIN Zane 08/12 [facility] [facility] PRO PHONE CALL 5-10 MIN [id number] Diagnos is: ICD-10- CM Z59.9 Problem related to housing and economi c circums tances, unsp
SERGIO-RILEY ZFRANKLIN M 08/16 [place] [facility] Outpatient Encounter [id number] 08/16 [facility] [place] [facility] PRO PHONE CALL 5-10 MIN [id number] Diagnos is: ICD-10- CM Z59.9 Problem related to housing and economi c circums tances, unsp
SERGIO-RILYE ZFRANKLIN 08/24 [facility] [facility] Outpatient Encounter [id number] 08/31 [facility] [place] [facility] OFFICE O/P EST MOD 30-39 MIN [id number] Diagnos is: ICD-10- CM I48.0 Paroxys mal atrial fibrill ation<b r/> RAFAEL COATES 09/08 [facility] [place] [facility] Outpatient Encounter [id number] 09/08 [facility] [place] [facility] PRO PHONE CALL 5-10 MIN [id number] Diagnos is: ICD-10- CM Z59.9 Problem related to housing and economi c circums tances, unsp
SERGIO-RILEY ZFRANKLIN 09/14 [facility] [id number] Diagnos is: ICD-10- CM Z59.9 Problem related to housing and economi c circums tances, unsp
SERGIO-RILEY ZFRANKLIN 09/14 [place] [facility] [place] [facility] MTMS BY PHARM ADDL 15 MIN [id number] Diagnos is: ICD-10- CM F22 Delusio nal disorde rs
MARCIN GALAVIZ 09/27 [facility] [place] [facility] [place] [facility] Outpatient Encounter [id number] 10/19 [facility] [place] [facility] En[facility] [id number] 11/02 [facility] [place] [facility] Encounter [id number] 11/02 [facility] [place] [facility] MTMS BY PHARM ADDL 15 MIN [id number] Diagnos is: ICD-10- CM F20.9 Schizop hrenia, unspeci fied
GALAVIZ,MARCIN 11/24 [facility] [place] [facility] [place] OFF/OP EST JUNE X REQ PHY/QHP [id number] Diagnos is: ICD-10- CM Z23 Encount er for immuniz ation<b r/> MIKE,NI OLU R 12/14 [place] [place] [facility] PRO PHONE CALL 5-10 MIN [id number] Diagnos is: ICD-10- CM Z59.9 Problem related to housing and economi c circums tances, unsp
SERGIO-RILEY BridgerFRANKLIN Zane 12/30 [place] [facility] [place] [facility] MTMS BY PHARM ADDL 15 MIN [id number] Diagnos is: ICD-10- CM F20.9 Schizop hrenia, unspeci fied
GALAVIZ,MARCIN 12/30 [facility] [place] [facility] [place] CASE MANAGEMENT [id number] Diagnos is: ICD-10- CM Z59.9 Problem related to housing and economi c circums tances, unsp
SERGIO-RILEY BridgerFRANKLIN M 01/10 [place] [facility] Outpatient Encounter [id number] 01/10 [facility] [place] [facility] OFFICE O/P EST LOW 20-29 MIN [id number] Diagnos is: ICD-10- CM L60.3 Nail dystrop hy
CHAN ECHEVARRIA ES F 01/13 [facility] PHONE CALL 11-20 MIN [id number] Diagnos is: ICD-10- CM Z59.9 Problem related to housing and economi c circums tances, unsp
SERGIO-RILEY ZFRANKLIN 02/15 [place] [facility] [place] [facility] MTMS BY PHARM ADDL 15 MIN [id number] Diagnos is: ICD-10- CM F20.9 Schizop hrenia, unspeci fied
IRVING MEDEIROS 03/02 [facility] [place] [facility] CASE MANAGEMENT [id number] Diagnos is: ICD-10- CM Z59.9 Problem related to housing and economi c circums tances, unsp
SERGIO-RILEY ZFRANKLIN 03/17 [place] [facility] [place] [facility] Outpatient Encounter [id number] 04/07 [facility] [place] [place] [facility] [place] [facility] Outpatient Encounter [id number] 04/13 [facility] [place] [facility] OFF/OP EST MAY X REQ PHY/QHP [id number] Diagnos is: ICD-10- CM R09.81 Nasal congest ion<br/ > MARGARETTE,ER IC K 04/13 [facility] O/P EST MOD 30 MIN [id number] Diagnos is: ICD-10- CM R00.1 Bradyca rdia, unspeci fied
VELIA NOEL 04/13 [facility] [id number] Diagnos is: ICD-10- CM Z59.9 Problem related to housing and economi c circums tances, unsp
SERGIO-FRANKLIN WALKER M [facility] [place] [facility] Encounter [id number] SERGIO-RILEY FRANKLIN [place] [facility] [place] MTMS BY PHARM ADDL 15 MIN [id number] Diagnos is: ICD-10- CM F20.9 Schizop hrenia, unspeci fied
IRVING MEDEIROS 04/14 [facility] [place] En[facility] [id number] 05/16 [facility] [place] [facility] OFF/OP EST JUNE X REQ PHY/QHP [id number] Diagnos is: ICD-10- CM Z23 Encount er for immuniz ation<b r/> LOBO FELDMAN 05/16 [facility] [place] [facility] [place] Out[facility] Encounter [id number] 06/07 [facility] [place] [facility] [facility] Encounter [id number] 06/08 [facility] [place] [facility] [facility] Encounter [id number] 06/16 [facility] [place] MTMS BY PHARM ADDL 15 MIN [id number] Diagnos is: ICD-10- CM F22 Delusio nal disorde rs
IRVING MEDEIROS 07/21 [facility] [place] [facility] [facility] [place] OFFICE O/P EST LOW 20 MIN [id number] Diagnos is: ICD-10- CM I48.0 Paroxys mal atrial fibrill ation<b r/> RAFAEL COATES 09/08 [place] OFFICE O/P EST LOW 20 MIN [id number] Diagnos is: ICD-10- CM L60.3 Nail dystrop hy
CHAN ECHEVARRIA F 09/29 [facility] [place] [facility] PRO PHONE CALL 5-10 MIN [id number] Diagnos is: ICD-10- CM Z59.9 Problem related to housing and economi c circums tances, unsp
SERGIO-RILEY FRANKLIN [place] 10/17 [place] [facility] [place] [facility] BY PHARM ADDL 15 MIN [id number] Diagnos is: ICD-10- CM F20.9 Schizop hrenia, unspeci fied
IRVING MEDEIROS 10/20 [facility] [place] [place] [facility] [place] [facility] PRO PHONE CALL 5-10 MIN [id number] Diagnos is: ICD-10- CM Z59.9 Problem related to housing and economi c circums tances, unsp
SERGIO-RILEY FRANKLIN [place] 10/26 [facility] [place] [facility] PRO PHONE CALL 5-10 MIN [id number] Diagnos is: ICD-10- CM Z59.9 Problem related to housing and economi c circums tances, unsp
SERGIO-RILEY FRANKLIN [place] 10/31 [place] [facility] [place] [facility] Outpatient Encounter [id number] 10/31 [facility] [place] [facility] OFF/OP EST JUNE X REQ PHY/QHP [id number] Diagnos is: ICD-10- CM Z23 Encount er for immuniz ation<b r/> TRAVIS MCKEON R 12/13 [facility]-10 MIN [id number] Diagnos is: ICD-10- CM Z59.9 Problem related to housing and economi c circums tances, unsp
FRANKLIN PARKER 12/13 [facility] [place] [place] [facility] Outpatient Encounter [id number] 1.12/18 [facility] [place] [facility] [place] [facility] Outpatient Encounter [id number] 1.12/29 [facility] [place] [facility] [place] [facility] MTMS BY PHARM ADDL 15 MIN [id number] Diagnos is: ICD-10- CM F22 Delusio nal disorde rs
IRVING MEDEIROS 01/19 [place] [facility] [place] [facility] Social History Combined list of available smoking, tobacco, and other social history from Department of Defense and Veterans Affairs facilities. Social History Type Response Date Comment Source Tobacco smoking status [facility] VA-TOBACCO FORMER USER 09/09/2023 [facility] History of tobacco use AL-TOBACCO QUIT 5 TO < 15 YRS 09/09/2023 [facility] History of tobacco use VA-TOBACCO FORMER USER 07/26/2022 [place] [facility] [place] [facility] History of tobacco use VA-TOBACCO FORMER USER 07/20/2021 [place] [facility] [place] [facility] History of tobacco use VA-TOBACCO FOR[facility] 1 TO < 5 YRS 06/04/2019 [facility] History of tobacco use AL-TOBACCO USE WI 30 MIN OF WAKEUP 06/08/2018 [facility] History of tobacco use QUIT TOBACCO USE IN PAST YEAR 05/03/2017 [facility] History of tobacco use CURRENT SMOKER 10/19/2016 [facility] History of tobacco use V1-PT NOT INTERESTED IN QUIT TOBACCO USE 03/15/2016 [facility] History of tobacco use V1-PT NOT INTERESTED IN QUIT TOBACCO USE 10/16/2015 [facility] History of tobacco use V1-PT NOT INTERESTED IN QUIT TOBACCO USE 04/21/2015 [facility] History of tobacco use CURRENT SMOKER 09/26/2014 1 pk every 2 days of cigarettes. [facility] of [facility] use CURRENT SMOKER 07/06/2013 less than a pack of cigarettes. [facility] History of tobacco use CURRENT SMOKER 03/28/2012 1/2 PACK A DAY [facility] History of tobacco use CURRENT SMOKER 02/28/2009 1/2 ppd [facility] History of tobacco use CURRENT SMOKER 02/29/2008 7 cigs per day [facility] History of tobacco use V1-PT DECLINES TOBACCO CESSATION MEDS 02/08/2007 [facility] History of tobacco use CURRENT SMOKER 02/08/2006 6 cigarettes/day [facility] This section is an empty social history section. [facility] Plan of Care List of future care activities from [facility] facilities. Additional future care activities may be listed in the Assessment and Plan section. Date/Time Care Activity Care Activity Detail Carmina lópez 02/24/2024 AMBULATORY - MEDICINE AMBULATORY - MEDICI [facility] 04/20/2024 AMBULATORY - PSYCHIATRY AMBULATORY - PSYC HIATRY [facility] Advance Directives List of completed, amended, or rescinded Advance Directives on record at [facility] of [facility] facilities. An actual copy of the Directive is not included. Date Advance Directive Provider Source 11/03/2020 ADVANCE DIRECTIVE DISCUSSION TIKI DUKES
--- OUTSIDE RECORDS SUMMARY | 2024-01-25 13:00 | XMS_ITS | Encounter Summary ---
Author Name [facility] [place] Address [address] [place] [address] Care Team Providers Care Certified Surgical Assistant Name Role Phone DUNCAN COATES Primary Care Provider Unavailabl e Insurance Providers: All historical and current Section Date Range: From patient's date of to the date document was created. This section includes the names of all active insurance providers for the patient. Insurance Provider Type of Coverage Plan Name Start of Policy Coverage End of Policy Coverage Group Number Member ID Insurance Provider's Telephone Number Policy Beyer's Name Patient's Relationship to Policy Beyer [employer] ([id number]) [facility]CRIPT [facility] Aug 14, 2017 [id number] GAIL FORDE PATIENT [facility] Aug 14, 2017 [id number] GAIL FORDE PATIENT Selected Encounter This section includes the information on record at [place] for the Encounter. Date/Time Encounter Type Encounter Description Reason Provider Source Feb 15, 2023 03:45 PM HC PRO PHONE CALL 11-20 MIN TELEPHONE/[facility] ICD-10-CM Z59.9 Problem related to housing and economic circumstances, unsp RANULFO SCHMITT IHBrina Encounter Template Text not used by VA Assessments - Encounter Diagnoses This section includes the primary and secondary diagnoses documented for the Encounter. Date/Time Primary/Secondary Diagnosis Diagnosis Name Provider Source Feb 15, 2023 03:45 PM PRIMARY Problem related to housing and economic circumstances, unsp LYNDSEY SCHMITT Feb 15, 2023 03:45 PM SECONDARY Schizophrenia, unspecified LYNDSEY SCHMITT Plan of Treatment: Future Appointments (+ 6 months) and Future Tests (+/- 45 days) The Plan of Treatment section includes future care activities for the patient from all [place] treatmentfacilities. This section includes future appointments and future orders which are active, pending or scheduled. Future Appointments This section includes appointments that were scheduled to occur 6 months from the date of the Encounter, up to a maximum of 20 appointments. The data comes from all [place] treatment facilities. Appointment Date/Time Appointment Type Appointme nt Facility Name 2023 01:00 PM [facility] Apr 13, 2023 08:30 AM [facility]ULAT[facility] MEDICINE [facility] Apr 13, 2023 08:45 AM AMBULATORY - MEDICINE [facility] Apr 15, 2023 01:00 PM AMBULATORY PSYCHIATRY [place] [facility] [place] [facility] May 17, 2023 09:00 AM AMBULATORY - MEDICINE [facility] [place] [facility] Jul 22, 2023 01:00 PM [facility] Advance Directives: All historical and current Section Date Range: From patient's date of to the date document was created. This section includes ALL of a patient's completed or amended [place] Advance and Rescinded Directives. The entries below indicate that a directive exists for the patient, but an actual copy is not included with this document. The data comes from all [place] facilities. Date Advance Directives Provider Source Nov 03, 2020 ADVANCE DIRECTIVE DISCUSSION TIKI DUKES [place] Encounter Notes: All associated encounter notes This section contains the clinical notes associated to the Encounter. Date/Time Encounter Note(s) Provider Source Feb 15, 2023 03:45 PM HOMELESS PROGRAM T ELEPHONE ENCOUNTER NOTE: LOCAL TITLE: [id number] CONTACT STANDARD TITLE: HOMELESS PROGRAM TELEPHONE ENCOUNTER NOTE DATE OF NOTE: FEB 15, 2023@15:45 ENTRY DATE: FEB 15, 2023@16:01:08 AUTHOR: FRANKLIN SCHMITT EXP COSIGNER: URGENCY: STATUS: COMPLETED CLICK HERE TO BEGIN Telephone contact with Length of contact:15 minutes Case management stage:Prep for discharge Diagnosis Addressed:z59.9 Subject of call:(click one or more)mental status check/risk assessment, social support/combat isolation, housing Description of contact:[place] calls SW as he still has not received a rental determination after his recertification and is concerned that he will not know what to pay when his lease is renewed in April. he also mentions that he received a bill from the [place] for over $1000. He is confused about this as this tag writer and completed an updated Means test for him the previous year and as he remains in the [facility] program a copay of that size is not something he would be able to afford. SW asks that he stop by 9A after his appointment on the and have staff there scan a copy of the bill to this tag writer. agrees to this. expresses some minor anxiety about meeting his new provider however seems exited as well. Notable changes in mental status:wnl Any clinical indications of increased risk? No If yes, CSSRS was completed on this date Next Steps: will give a copy of the bill he recieved to Admin Steph or Admin Veronique to be scanned to this tag writer for follow up. /li/ Franklin Schmitt [facility] Analytic Manager Signed: 02/15/2023 16:10 Receipt Acknowledged By: 02/24/2023 14:57 /es/ RANI CASTLE ADVANCED CAN PATCHER 03/04/2023 15:23 /li/ DUNCAN SINCLAIR LICENSED PRACTICAL NURSE FRANKLIN SCHMITT
--- OUTSIDE RECORDS SUMMARY | 2024-01-25 13:01 | XMS_ITS ---
Author Name [facility] [place] [facility] [place] Address [address] [place] [address] Care Team Providers Care Chief Compliance Officer Name Role Phone DUNCAN COATES Primary Care [...] Patient's Relationship to Policy Beyer [employer] ([id number]) PRESCRIPT ION [facility] Aug 14, 2017 [id number] GAIL FORDE PATIENT [facility] Aug 14, 2017 [id number] GAIL FORDE PATIENT Selected Encounter This section includes the information on record at [place] for the Encounter. Date/Time Encounter Type Encounter Description Reason Provider Source 2023 01:00 PM MTMS BY PHARM ADDL 15 MIN [facility] - IND ICD-10-CM F20.9 Schizophrenia, unspecified LUDY GARNICA Encounter Template Text not used by VA Assessments - Encounter Diagnoses This section includes the primary and secondary diagnoses documented for the Encounter. Date/Time Primary/Secondary Diagnosis Diagnosis Name Provider Source 2023 02:17 PM PRIMARY Schizophrenia, unspecified JEANCARLOSRENAEBUDDYS ERLIN DEYSI [place] [facility] [place] [facility] 2023 02:17 PM SECONDARY Delusional disorders BUDDY GARNICAS ERLIN DEYSI [place] [facility] [place] [facility] 2023 02:17 PM SECONDARY Paranoid schizophrenia BUDDY GARNICAS ERLIN [facility] Plan of Treatment: Future Appointments (+ 6 months) and Future Tests (+/- 45 days) The Plan of Treatment section includes future care activities for the patient from all [place] [facility]. This section includes future appointments and future orders which are active, pending or scheduled. Future Appointments This section includes appointments that were scheduled to occur 6 months from the date of the Encounter, up to a maximum of 20 appointments. The data comes from all [place] treatment facilities. Appointment Date/Time Appointment Type Appointme nt Facility Name Apr 13, 2023 08:30 AM AMBULATORY - MEDICINE [facility] Apr 13, 2023 08:45 AM AMBULATORY - MEDICINE [facility] Apr 15, 2023 01:00 PM [facility] [place] [facility] May 17, 2023 09:00 AM [facility] Jul 22, 2023 01:00 PM [facility] Social History: Smoking Status (Most current) and Tobacco Use (All prior to encounter date) This section includes the most current, and the historical, smoking and tobacco- related health factors from the [place] facility where the Encounter took place. Current Smoking Status This section includes the most current smoking, or tobacco-related health factor, from the [place] facility where the Encounter took place. Date/Time Current Smoking Status Comment [facility] it Jul 26, 2022 01:30 PM VA-TOBACCO FORMER USER [facility] Tobacco Use History This section includes a history of the smoking, or tobacco-related health factors, that were collected on or before the date of the Encounter. The data comes from the [place] facility where the Encounter took place. Date/Time Smoking Status/Tobac co Use Comment Facility Jul 26, 2022 01:30 PM [place]-TOBACCO QUIT 1 TO < 5 YRS [facility] [place] [facility] Jul 20, 2021 01:30 PM VA-TOBACCO FORMER USER [facility] [place] [facility] Jul 20, 2021 01:30 PM VA-TOBACCO QUIT 1 TO < 5 YRS [facility] [place] [facility] Jul 28, 2020 01:45 PM VA-TOBACCO FORMER USER [facility] [place] [facility] Jul 28, 2020 01:45 PM VA-TOBACCO QUIT 5 TO < 15 YRS [facility] [place] [facility] Jun 04, 2019 03:15 PM VA-TOBACCO FORMER USER [facility] [place] [facility] Jun 04, 2019 03:15 PM VA-TOBACCO QUIT 1 TO < 5 YRS [facility] [place] [facility] Jun 08, 2018 12:43 PM VA-TOBACCO USE > 15 LESS THAN 30 YEARS [facility] [place] [facility] Jun 08, 2018 12:43 PM VA-TOBACCO USE ADVICE [place] [facility] [place] [facility] Jun 08, 2018 12:43 PM VA-TOBACCO USE CALL SPECIALIST NO [facility] [place] [facility] Jun 08, 2018 12:43 PM VA-TOBACCO USE MED NO [facility] [place] [facility] Jun 08, 2018 12:43 PM VA-TOBACCO USE WI 30 MIN OF WAKEUP [place] [facility] [place] [facility] Jun 08, 2018 12:43 PM VA-TOBACCO USER EVERY DAY [place] [facility] [place] [facility] May 03, 2017 12:58 PM QUIT TOBACCO USE IN PAST YEAR [facility] [place] [facility] Oct 19, 2016 01:18 PM CURRENT SMOKER [facility] [place] [facility] Oct 19, 2016 01:18 PM V1-PT DECLINES REF TO TOBACCO CESS PRGM [facility] [place] [facility] Oct 19, 2016 01:18 PM V1-PT THINKING ABOUT QUIT TOBACCO USE [facility] [place] [facility] Oct 19, 2016 01:18 PM V1-TOBACCO CESS MEDS NOT PRESCRIBED not ready [facility] [place] [facility] Mar 15, 2016 02:30 PM V1-PT NOT INTERESTED IN QUIT TOBACCO USE [facility] [place] [facility] Oct 16, 2015 08:02 AM V1-PT NOT INTERESTED IN QUIT TOBACCO USE [facility] Apr 21, 2015 01:01 PM V1-PT NOT INTERESTED IN QUIT TOBACCO USE [facility] Sep 26, 2014 01:04 PM CURRENT SMOKER 1 pk every 2 days of cigarettes. [facility] Sep 26, 2014 01:04 PM V1-PT NOT INTERESTED IN QUIT TOBACCO USE [facility] July 06, 2013 12:51 PM CURRENT SMOKER less than a pack of cigarettes. [facility] July 06, 2013 12:51 PM V1-PT DECLINES TOBACCO CESSATION MEDS [facility] July 06, 2013 12:51 PM V1-PT THINKING ABOUT QUIT TOBACCO USE [facility] Mar 28, 2012 12:45 PM CURRENT SMOKER 1/2 PACK A DAY [facility] Mar 28, 2012 12:45 PM V1-PT DECLINES REF TO TOBACCO CESS PRGM [facility] Mar 28, 2012 12:45 PM V1-PT DECLINES TOBACCO CESSATION MEDS [facility] Mar 28, 2012 12:45 PM V1-PT THINKING ABOUT QUIT TOBACCO USE [facility] Feb 28, 2009 02:26 PM CURRENT SMOKER 1/2 ppd [facility] Feb 28, 2009 02:26 PM V1-PT DECLINES TOBACCO CESSATION MEDS [facility] Feb 28, 2009 02:26 PM V1-PT THINKING ABOUT QUIT TOBACCO USE [facility] Feb 29, 2008 03:31 PM CURRENT SMOKER 7 cigs per day [facility] Feb 29, 2008 03:31 PM V1-PT DECLINES TOBACCO CESSATION MEDS [facility] Feb 29, 2008 03:31 PM V1-PT THINKING ABOUT QUIT TOBACCO USE [facility] Feb 08, 2007 12:18 PM V1-PT DECLINES TOBACCO CESSATION MEDS [facility] Feb 08, 2007 12:18 PM V1-PT NOT INTERESTED IN QUIT TOBACCO USE [facility] Feb 08, 2006 09:10 AM CURRENT SMOKER 6 cigarettes/day [facility] Advance Directives: All historical and current Section Date Range: From patient's date of to the date document was created. This section includes ALL of a patient's completed or amended [place] Advance and Rescinded Directives. The entries below indicate that a directive exists for the patient, but an actual copy is not included with this document. The data comes from all [place] facilities. Date Advance Directives Provider Source Nov 03, 2020 ADVANCE DIRECTIVE DISCUSSION TIKI DUKES Encounter Notes: All associated encounter notes This section contains the clinical notes associated to the Encounter. Date/Time Encounter Note(s) Provider Source 2023 12:44 PM MENTAL HEALTH CONSULT: LOCAL TITLE: MENTAL HEALTH CONSULT NOTE STANDARD TITLE: MENTAL HEALTH CONSULT DATE OF NOTE: 2023@12:44 ENTRY DATE: 2023@12:44:16 AUTHOR: TIM GARNICA COSIGNER: URGENCY: STATUS: COMPLETED Program: Clinical Pharmacy Provider/Medication Management Speciality: Mental Health ATTENDED BY: [X] Patient [ ] Spouse/Caregiver LENGTH OF SESSION: 60minutes -=-=-=-=-=-=-=-=-=-=-=-=-= -=-=-=-=-=-=-==-=-=-=-=-=- =-=-=-=-=-=-=-=-=-=-=-=-=- =- Name: MAURISIOHUSSAIN BONE : Feb ID: 63yo WHITE MALE -=-=-=-=-=-=-=-=-=-=-=-=-= -=-=-=-=-=-=-==-=-=-=-=-=- =-=-=-=-=-=-=-=-=Subjectiv e- Treating Dx(s): Delusional Disorder Interview Summary: pt w/out CC upon interview. noted that pt was previously being seen by Dr. Walker. pt reports to be doing well. reports that he was able to enjoy [employer] with his family. discussed his employment at length. expressed having a lot of structure in his schedule. enjoys watching sports and [employer] denies AH/VH. denies SI/HI or any history of SA. otherwise expressed that everything was good and disclosed no issues at this time. Mood: good Sleep: good Apetite: great reports the following regarding medications: -N--Y- [ ][X] Adherence/Compliance [X][ ] Adverse Drug Reactions [X][ ] New OTC/Herbal/Supplement(s) SUBSTANCE USE ASSESSMENT [X] Denies All [ ] Nicotine - quit 4-5yrs ago, prior to 1 ppd [ ] Caffeine - stopped d/t heart issues [ ] Alcohol [ ] Cannabis [ ] Other Illicit Substances __ -=-=-=-=-=-=-=-=-=-=-=-=-= -=-=-=-=-=-=-==-=-=-=-=-=- =-=-=-=-=-=-=-=-=-Objectiv e- Mental Status Exam Appearance: [X] Unremarkable [X] Appropriate to season [ ] Neatly groomed [ ] Somewhat disheveled [ ] Other: Behavior Mood/Affect: [X] Appropriate [ ] Irritable [X] Normal [ ] Euphoric [ ] Pleasant [ ] Provocative [ ] Bright [ ] Depressed [ ] Anxious [ ] Frustrated [ ] Anxious [ ] Frustrated [ ] Maintained good eye contact [ ] Restricted [ ] Flat [ ] Other: [ ] Subdued [ ] Unremarkable [ ] Responsive & Congruent w/mood Energy: [ ] Other: [X] Normal [ ] Excessive [ ] Lethargic [ ] Variable Sleep: [ ] Other: [X] Normal [ ] Early awakening [ ] Sleep onset insomnia -N--Y- Orientation to: [ ] Frequent disruption [ ][X] Person [ ][X] Place Speech: [ ][X] Time [X] Normal [ ] Rapid [ ] Loud [ ] Flat [ ] Slow [ ] Soft Stream of thought: [ ] Other: [X] Normal [ ] Confused [ ] Tangential [ ] Derailed Insight/Judgment: [ ] Vague [ ] Repetitive [X] Normal [ ] Impaired [X] No evidence of thought disorder [X] No overt psychosis Other cognitive problems: [ ] Denies Flashbacks [X] Cognition intact [ ] Denies AH/VH [X] Logical and Linear [ ] Obsessions [ ] Paranoid/Delusions [X] Memory sufficient for interview [ ] Hallucinations: [ ] None [ ] Visuospatial [ ] Flashbacks: [ ] Attention [ ] Judgment [ ] Other: [ ] Abstraction __ Active problems - Computerized Problem List is the source for the followin. Bradycardia 2. Housing adequate 3. Asthma (SCT 689532703) 4. Irritable bowel syndrome with diarrhea 5. Obsessive compulsive disorder 6. Paranoid disorder 7. Schizophrenia 8. History of alcohol abuse 9. Atrial fibrillation and flutter (SNOMED CT [id number]) 10. Exercise Stress Test 11. ECHO 12. Obesity 13. Colonoscopy Screening 14. Housing instability due to imminent risk of homelessness 15. Delusional disorder 16. Tobacco dependence in remission __ ALLERGIES: Patient has answered NKA Active Outpatient Medications (including Supplies): Active Outpatient Medications Status 1) PALIPERIDONE 1.5MG SA TAB TAKE THREE TABLETS BY MOUTH ACTIVE ONCE DAILY Active Non-VA Medications Status 1) Non-VA ACETAMINOPHEN 500MG TAB 500MG BY MOUTH THREE ACTIVE TIMES DAILY NEEDED 2) Non-VA METOPROLOL TARTRATE 50MG TAB 50MG BY MOUTH ACTIVE TWICE DAILY 3 Total Medications Past psychiatric medications include the following: [X] Per CPRS: - paliperidone PO (2019-) - paliperidone SILVA () > transitioned to PO d/t cost associated w/ SILVA - risperidone (0480-5402) [ ] Per Patient: __ Vitals: Ht: 70 in [177.8 cm] (09/08/2022 10:01) Wt: 247.6 lb [112.31 kg] (09/08/2022 10:01) BMI: 35.6 BP: 150/74 (09/08/2022 10:01) HR: 64 (09/08/2022 10:01) Labs: CHEM 7 TREND LAB CUMULATIVE SELECTED Collection DT Spec GLUCOSE BUN CREATIN Sodium K+/Pot CL CO2 10/04/2022 13:16 SERUM 95 17 0.75 140 4.1 106 26 09/01/2021 08:12 SERUM 94 23 0.72 138 4.1 107 24 05/20/2016 13:35 SERUM 107 H 8 0.77 141 4.0 106 29 07/06/2013 13:40 SERUM 92 8 0.84 140 4.4 102 31 H 03/28/2012 13:43 SERUM 85 11 0.84 139 4.2 102 27 LIVER PANEL TREND Collection DT Spec AST ALT T BILI ALK ROHIT T. PROT ALBUMIN 10/04/2022 13:16 SERUM 25 43 0.6 72 7.0 4.4 09/01/2021 08:12 SERUM 24 42 0.7 84 6.4 3.8 05/20/2016 13:35 SERUM 13 15 0.4 59 6.2 3.6 07/06/2013 13:40 SERUM 18 15 0.4 61 6.9 4.1 03/28/2012 13:43 SERUM 21 18 0.5 56 7.1 4.7 CBC TREND Collection DT Spec WBC RBC HGB HCT MCV MCH PLT 10/04/2022 13:16 BLOOD 6.25 4.62 13.1 39.8 86.1 28.4 256 09/01/2021 08:12 BLOOD 6.34 4.38 11.9 L 37.0 L 84.5 27.2 231 12/29/2020 13:39 BLOOD 8.81 4.57 13.0 39.6 86.7 28.4 310 05/20/2016 13:35 BLOOD 5.58 4.09 L 12.0 L 36.0 L 88.0 29.3 288 07/06/2013 13:40 BLOOD 6.56 4.43 13.2 38.8 L 87.6 29.8 288 LIPID PANEL TREND Collection DT Spec CHOL HDL CHO/HDL LDL-c TRIG 10/04/2022 13:16 SERUM 193 48 4.0 133 H 62 09/01/2021 08:12 SERUM 144 42 3.4 92 49 05/20/2016 13:35 SERUM 175 54 3.2 107 71 07/06/2013 13:40 SERUM 164 52 3.2 101 56 03/28/2012 13:43 SERUM 194 55 3.5 128 H 54 HEMOGLOBIN A1C TREND Collection DT Spec HGBA1c 10/04/2022 13:16 BLOOD 5.6 09/01/2021 08:12 BLOOD 5.6 05/20/2016 13:35 BLOOD 6.0 H EK QTc = 407 Estimated CrCl (based on IBW): ~105mL/min -=-=-=-=-=-=-=-=-=-=-=-=-= -=-=-=-=-=-=-==-=-=-=-=-=- =-=-=-=-=-=-=-=-=-=-=-=-=- =- ASSESSMENT The following review of all active psychotropic and TALENT COORDINATOR-active agents is to ensure pharmacotherapy is evaluated for safety and efficacy as they relate to behaviorial and physiological changes and outcomes Delusional Disorder - paliperidone 4.5mg daily PLAN 1. Pharmacotherapy [X] No changes [ ] Discontinue: [ ] Initiate: [ ] Change the followin. Labs/tests: 3. Consult(s) or Coordination of care: 4. Other: Education was provided to the regarding the above medication(s) risks, benefits, and alternatives; adverse drug reactions; expectations; and instructions for use. Findings/Plan was discussed with the patient and/or caregiver(s) whom provided verbal acknowledgement that the findings/plan was understood. The following counseling was specifically provided: [ ] Lab tests reviewed with patient [X] Instruction for management/treatment and/or follow-up [x] Importance of compliance with chosen treatment options [X] Risk Factor Reduction [ ] Other: RTC Interval: every 6-8weeks Next Apt: [id number]@1300 was provided bid writer's contact information and instructed to contact bid writer as needed for any changes to scheduling or concerns otherwise. is aware of actions to take if they feel unsafe, including calling the 's Crisis Line (#[phone]); calling 911; or going to the nearest urgent care or emergency room. The is also aware of how to contact the clinic should the require additional services prior to the next appointment. Time spent on chart review, session, and documentation: 60minutes /es/ Tim Garnica PharmD Clinical Pharmacist Practitioner Signed: 2023 14:32 TIM GARNICA [place] [facility]
--- OUTSIDE RECORDS SUMMARY | 2024-01-25 13:04 | XMS_ITS | Encounter Summary ---
Author Name [facility] [place] Organization [place] Address [address] [place] [address] Care Team Providers Care Decaler Name Role Phone DUNCAN COATES Primary Care [...] Patient's Relationship to Policy Beyer [facility] ([id number]) PRESCRIPT ION [facility] Aug 14, 2017 [id number] GAIL FORDE PATIENT [facility] Aug [facility], 2017 [id number] GAIL FORDE PATIENT Selected Encounter This section includes the information on record at [place] for the Encounter. Date/Time Encounter Type Encounter Description Reason Provider Source Apr 14, 2023 09:25 AM CASE MANAGEMENT HUD/VASH INDIV ICD-10-CM Z59.9 Problem related to housing and economic circumstances, RANULFO Perez Encounter Template Text not used by VA Assessments - Encounter Diagnoses This section includes the primary and secondary diagnoses documented for the Encounter. Date/Time Primary/Secondary Diagnosis Diagnosis Name Provider Source Apr 14, 2023 11:00 AM PRIMARY Problem related to housing and economic circumstances, unsp LYNDSEY SCHMITT Plan of Treatment: Future Appointments (+ 6 months) and Future Tests (+/- 45 days) The Plan of Treatment section includes future care activities for the patient from all [place] [facility] This section includes future appointments and future orders which are active, pending or scheduled. Future Appointments This section includes appointments that were scheduled to occur 6 months from the date of the Encounter, up to a maximum of 20 appointments. The data comes from all [place] treatment facilities. Appointment Date/Time Appointment Type Appointme nt Facility Name Apr 15, 2023 01:00 PM [facility]UL[facility] May 17, 2023 09:00 AM AMBULATORY MEDICINE [facility] Jul 22, 2023 01:00 PM [facility] Sep 09, 2023 10:30 AM AMBULATORY MEDICINE [facility] Sep 30, 2023 08:30 AM AMBULATORY - MEDICINE [facility] Advance Directives: All historical and current Section Date Range: From patient's date of to the date document was created. This section includes ALL of a patient's completed or amended [place] Advance and Rescinded Directives. The entries below indicate that a directive exists for the patient, but an actual copy is not included with this document. The data comes from all [facility]. Date Advance Directives Provider Source Nov 03, 2020 ADVANCE DIRECTIVE DISCUSSION TIKI DUKES AVILLA Encounter Notes: All associated encounter notes This section contains the clinical notes associated to the Encounter. Date/Time Encounter Note(s) Provider Source Apr 14, 2023 10:21 AM MENTAL HEALTH NOTE : LOCAL TITLE: HOUSING STABILITY PLAN STANDARD TITLE: MENTAL HEALTH NOTE DATE OF NOTE: APR 14, 2023@10:21 ENTRY DATE: APR 14, 2023@10:21:26 AUTHOR: FRANKLIN SCHMITT EXP COSIGNER: URGENCY: STATUS: COMPLETED The following housing stability plan has been developed in collaboration with the [place] with consideration of their strengths, needs, abilities and preferences. The following tools were offered and utilized, depending on Veterans stated wishes and abilities: Quality of Life Enjoyment and Satisfaction Questionnaire Short Form (QLES QSF) Housing Stability Plan Values Worksheet Housing: A. Accomplishments towards goals and values: Marcella has remained stabily housed for two years, he has built a community and strong routine that helps him with his mental health. B. What barriers have I encountered? Marcella recently received a voucher termination letter from his housing authority. C. What next steps am I willing take toward my goals and values? Marcella contacts his SW prn for support with any concerns or rising anxiety and communicates bi monthly with housing on concerns. Employment/Finances: A. Accomplishments towards goals and values: Marcella has a long standing history with the [facility]. B. What barriers have I encountered? [place]'s mental health has been a barrier at times in the past. C. What next steps am I willing take toward my goals and values? 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 Marcella works daily, sees his psychiatrist every three months and communicates any concerns or changes prn. /li/ Franklin CARY Acute Care Clinical Nurse Specialist Signed: 04/14/2023 11:01 Receipt Acknowledged By: 04/20/2023 13:20 /li/ SADIE Rosen, STATISTICS MANAGER DENISERAEANN Acute Care Clinical Nurse Specialist FRANKLIN SCHMITT AVILLA Apr 14, 2023 09:25 AM HOMELESS PROGRAM N OTE: LOCAL TITLE: [facility] PROGRESS NOTE STANDARD TITLE: HOMELESS PROGRAM NOTE DATE OF NOTE: APR 14, 2023@09:25 ENTRY DATE: APR 14, 2023@10:05:35 AUTHOR: FRANKLIN SCHMITT EXP COSIGNER: URGENCY: STATUS: COMPLETED Location of visit: Office visit Case Management Stage: Pre-discharge Length of contact: 60 minutes Diagnosis addressed: z59.9 Description of contact: met with loan underwriter to contact [employer] about a LUCILLE for his voucher. and SW called the number several time without succces before finally making it through to someone. was able to authorize himself so that the document could be immediately sent to this loan underwriter so that it will not impeded the process of his recertification. Geodetic Engineer and completed several other documents while waiting for the document to be received. 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 [place] acknowleges. Asks what happens after he graduates. SW explains that he keeps his voucher just no longer has a pillowcase folder. Mental status: wnl Primary goal: Obtain and maintain housing Objectives addressed: Voucher/ income verification PLAN/Next steps: follow up with [place] once income verification comes through. /li/ Franklin Schmitt [facility] Acute Care Clinical Nurse Specialist Signed: 04/14/2023 11:00 FRANKLIN SCHMITT AVILLA
--- OUTSIDE RECORDS SUMMARY | 2024-01-25 13:04 | XMS_ITS ---
Author Name [place] Address [address] [place] [address] Care Team Providers Care Wharf Worker Name Role Phone DUNCAN COATES Primary Care [...] Patient's Relationship to Policy Beyer [employer] [facility] ([id number]) PRESCRIPT ION [facility] Aug 14, 2017 [id number] GAIL FORDE PATIENT [facility] Aug 14, 2017 [id number] [phone] GAIL FORDE PATIENT Selected Encounter This section includes the information on record at [place] for the Encounter. Date/Time Encounter Type Encounter Description Reason Provider Source Apr 14, 2023 10:16 AM Outpatient Encounter DENISE/AMAN THURMNA Brina Encounter Template Text not used by [place] Plan of Treatment: Future Appointments (+ 6 months) and Future Tests (+/- 45 days) The Plan of Treatment section includes future care activities for the patient from all VA treatmentfacilities. This section includes future appointments and future orders which are active, pending or scheduled. Future Appointments This section includes appointments that were scheduled to occur 6 months from the date of the Encounter, up to a maximum of 20 appointments. The data comes from all [place] treatment facilities. Appointment Date/Time Appointment Type Appointme nt Facility Name Apr 15, 2023 01:00 PM AMBULATORY [facility] [place] [facility] May 17, 2023 09:00 AM AM[place] [facility] [place] [facility] Jul 22, 2023 01:00 PM AMBULATORY - PS[facility]IATRY [facility] [place] [facility] Sep 09, 2023 10:30 AM AM[place] [facility] [place] [facility] Sep 30, 2023 08:30 AM AMBULATORY - MEDICINE [facility] Social History: Smoking Status (Most current) and Tobacco Use (All prior to encounter date) This section includes the most current, and the historical, smoking and tobacco- related health factors from the [place] facility where the Encounter took place. Current Smoking Status This section includes the most current smoking, or tobacco-related health factor, from the [place] facility where the Encounter took place. Date/Time Current Smoking Status Comment [facility] Jul 26, 2022 01:30 PM VA-TOBACCO FORMER USER [place] [facility] [place] [facility] Tobacco Use History This section includes a history of the smoking, or tobacco-related health factors, that were collected on or before the date of the Encounter. The data comes from the [place] facility where the Encounter took place. Date/Time Smoking Status/Tobac co Use Comment [facility] Jul 26, 2022 01:30 PM VA-TOBACCO QUIT 1 TO < 5 YRS [facility] [place] [facility] Jul 20, 2021 01:30 PM VA-TOBACCO FORMER USER [facility] [place] [facility] Jul 20, 2021 01:30 PM VA-TOBACCO QUIT 1 TO < 5 YRS [facility] [place] [facility] Jul 28, 2020 01:45 PM VA-TOBACCO FORMER USER [facility] [place] [facility] Jul 28, 2020 01:45 PM VA-TOBACCO QUIT 5 TO < 15 YRS [facility] [place] [facility] Jun 04, 2019 03:15 PM VA-TOBACCO FORMER USER [facility] [place] [facility] Jun 04, 2019 03:15 PM VA-TOBACCO QUIT 1 TO < 5 YRS [facility]RN [facility] Jun 08, 2018 12:43 PM VA-TOBACCO USE > 15 LESS THAN 30 YEARS [facility] Jun 08, 2018 12:43 PM VA-TOBACCO USE ADVICE [facility] Jun 08, 2018 12:43 PM VA-TOBACCO USE TRANSLATOR NO [facility] SIDDHARTHATRN [facility] Jun 08, 2018 12:43 PM VA-TOBACCO USE MED NO [facility] SIDDHARTHATRN [facility] Jun 08, 2018 12:43 PM VA-TOBACCO USE WI 30 MIN OF WAKEUP [facility] Jun 08, 2018 12:43 PM VA-TOBACCO USER EVERY DAY [facility] May 03, 2017 12:58 PM QUIT TOBACCO USE IN PAST YEAR [facility] Oct 19, 2016 01:18 PM CURRENT [facility]MOKER [facility] Oct 19, 2016 01:18 PM V1-PT DECLINES REF TO TOBACCO CESS PRGM [facility] Oct 19, 2016 01:18 PM V1-PT THINKING ABOUT QUIT TOBACCO USE [facility] Oct 19, 2016 01:18 PM V1-TOBACCO CESS MEDS NOT PRESCRIBED not ready [facility] SIDDHARTHAN [facility] Mar 15, 2016 02:30 PM V1-PT NOT INTERESTED IN QUIT TOBACCO USE [facility] Oct 16, 2015 08:02 AM V1-PT NOT INTERESTED IN QUIT TOBACCO USE [facility] Apr 21, 2015 01:01 PM V1-PT NOT INTERESTED IN QUIT TOBACCO USE [facility] Sep 26, 2014 01:04 PM CURRENT SMOKER 1 pk every 2 days of cigarettes. [facility] Sep 26, 2014 01:04 PM V1-PT NOT INTERESTED IN QUIT TOBACCO USE [facility] July 06, 2013 12:51 PM CURRENT SMOKER less than a pack of cigarettes. [facility] July 06, 2013 12:51 PM V1-PT DECLINES TOBACCO CESSATION MEDS [facility] SIDDHARTHACamelia [facility] July 06, 2013 12:51 PM V1-PT THINKING ABOUT QUIT TOBACCO USE [facility] Mar 28, 2012 12:45 PM CURRENT SMOKER 1/2 PACK A DAY [facility] Mar 28, 2012 12:45 PM V1-PT DECLINES REF TO TOBACCO CESS PRGM [facility] Mar 28, 2012 12:45 PM V1-PT DECLINES TOBACCO CESSATION MEDS [facility] Mar 28, 2012 12:45 PM V1-PT THINKING ABOUT QUIT TOBACCO USE [facility] Feb 28, 2009 02:26 PM CURRENT SMOKER 1/2 ppd [facility] Feb 28, 2009 02:26 PM V1-PT DECLINES TOBACCO CESSATION MEDS [facility] Feb 28, 2009 02:26 PM V1-PT THINKING ABOUT QUIT TOBACCO USE [facility] Feb 29, 2008 03:31 PM CURRENT SMOKER 7 cigs per day [facility] Feb 29, 2008 03:31 PM V1-PT DECLINES TOBACCO CESSATION MEDS [facility] Feb 29, 2008 03:31 PM V1-PT THINKING ABOUT QUIT TOBACCO USE [facility] Feb 08, 2007 12:18 PM V1-PT DECLINES TOBACCO CESSATION MEDS [facility] Feb 08, 2007 12:18 PM V1-PT NOT INTERESTED IN QUIT TOBACCO USE [facility] Feb 08, 2006 09:10 AM CURRENT SMOKER 6 cigarettes/day [facility] Advance Directives: All historical and current Section Date Range: From patient's date of to the date document was created. This section includes ALL of a patient's completed or amended [place] Advance and Rescinded Directives. The entries below indicate that a directive exists for the patient, but an actual copy is not included with this document. The data comes from all [place] facilities. Date Advance Directives Provider Source Nov 03, 2020 ADVANCE DIRECTIVE DISCUSSION TIKI DUKES TOW Encounter Notes: All associated encounter notes This section contains the clinical notes associated to the Encounter. Date/Time Encounter Note(s) Provider Source Apr 14, 2023 10:17 AM MENTAL HEALTH DIAG NOSTIC STUDY NOTE: LOCAL TITLE: MENTAL HEALTH DIAGNOSTIC STUDY STANDARD TITLE: MENTAL HEALTH DIAGNOSTIC STUDY NOTE DATE OF NOTE: APR 14, 2023@10:17:28 ENTRY DATE: APR 14, 2023@10:17:28 AUTHOR: FRANKLIN SCHMITT EXP COSIGNER: URGENCY: STATUS: COMPLETED Quality of Life Enjoyment and Satisfaction Questionnaire - Short Form (Q-LES-Q-SF) Date Given: 04/14/2023 Clinician: Franklin Schmitt Location: [facility]/ [place]: Hussain Forde SSN: [id number] : [birth year] ([birth year]) Gender: Male Quality of Life/Life Enjoyment Percent of Max Score*: 93% Satisfaction with Medications (Item 15)*: VERY GOOD Self-Rating of Overall Satisfaction (Item 16)*: VERY GOOD Critical Items*: *Note: All scores reflect respondent satisfaction ratings for during the past week. Questions and Answers Taking everything into consideration, during the past week how satisfied have you been with: 1. Your physical health? Good Taking everything into consideration, during the last week how satisfied have you been with: 2. Your mood? Very Good Taking everything into consideration, during the past week how satisfied have you been with: 3. Your work? Very Good Taking everything into consideration, during the last week how satisfied have you been with: 4. Your household activities? Very Good Taking everything into consideration, during the past week how satisfied have you been with: 5. Your social relationships? Very Good Taking everything into consideration, during the last week how satisfied have you been with: 6. Your family relationships? Very Good Taking everything into consideration, during the past week how satisfied have you been with: 7. Your leisure time activities? Very Good Taking everything into consideration, during the last week how satisfied have you been with: 8. Your ability to function in daily life? Very Good Taking everything into consideration, during the past week how satisfied have you been with: 9. Your sexual drive, interest and/or performance? Very Good Taking everything into consideration, during the last week how satisfiedhave you been with: 10. Your economic status? Good Taking everything into consideration, during the past week how satisfied have you been with: 11. Your living/housing situation? Very Good Taking everything into consideration, during the last week how satisfied have you been with: 12. Your ability to get around physically without feeling dizzy or unsteady or falling? Very Good Taking everything into consideration, during the past week how satisfied have you been with: 13. Your vision in terms of ability to do work or hobbies? Good Taking everything into consideration, during the last week how satisfied have you been with: 14. Your overall sense of well-being? Good Taking everything into consideration, during the past week how satisfied have you been with: 15. Your medication? Very Good Taking everything into consideration, during the last week how satisfied have you been with: 16. How would you rate your overall life satisfaction and contentmentduring the past week? Very Good Information contained in this note is based on a self-report assessment and is not sufficient to use alone for diagnostic purposes. Assessment results should be verified for accuracy and used in conjunction with other diagnostic activities. The Q-LES-Q-SF is copyrighted by Giuseppe Sullivan, Ph.D. Permission granted to electronically reproduce for clinicians use and research in non-industry studies. For other uses, contact copyright beyer. [place] Suicide Severity Rating Scale (C-SSRS) Date Given: 04/14/2023 Clinician: Franklin Schmitt Location: [facility] [place]: Hussain Forde SSN: [id number] : [birth year] (63) Gender: Male Suicidal Ideation in Past Month: None endorsed Method/Plan/Intent in Past Month: No method, no specific plan, and no intent Suicidal Behavior: No Past Suicidal Behavior Reported KELLER INDICATORS: Questions and Answers: 1. Over the past month, have you wished you were or wished you could go to sleep and not wake up? No 2. Over the past month, have you had any actual thoughts of killing yourself? No 3. Over the past month, have you been thinking about how you might do this? Not asked (due to responses to other questions) 4. Over the past month, have you had these thoughts and had some intention of acting on them? Not asked (due to responses to other questions) 5. Over the past month, have you started to work out or worked out the details of how to kill yourself? Not asked (due to responses to other questions) 6. If yes, at any time in the past month did you intend to carry out this plan? Not asked (due to responses to other questions) 7. In your lifetime, have you ever done anything, started to do anything, or prepared to do anything to end your life (for example, collected pills, obtained a gun, gave away valuables, went to the roof but didn't jump)? No 8. If yes, was this within the past 3 months? Not asked (due to responses to other questions) [place]-Suicide Severity Rating Scale (C-SSRS) ?? 2016 The [facility]. Scale may be reproduced without permission. Information contained in this note is based on a self-report assessment and is not sufficient to use alone for diagnostic purposes. Assessment results should be verified for accuracy and used in conjunction with other diagnostic activities. /li/ Franklin Schmitt [facility] Pbx Mechanic Signed: 04/14/2023 11:01 FRANKLIN SCHMITT
--- OUTSIDE RECORDS SUMMARY | 2024-01-25 13:04 | XMS_ITS | Encounter Summary ---
Author Name [facility] [place] Address [address] [place] [address] Care Team Providers Care Last Trimmer Name Role Phone DUNCAN COATES Primary Care [...] Patient's Relationship to Policy Beyer [employer] ([id number]) PRESCRIPT ION [facility] Aug 14, 2017 [id number] [phone] GAIL FORDE PATIENT [facility] [id number] GAIL FORDE PATIENT Selected Encounter This section includes the information on record at [place] for the Encounter. Date/Time Encounter Type Encounter Description Reason Provider Source Apr 13, 2023 08:45 AM OFFICE O/P EST MOD 30 MIN PRIMARY CARE/MEDICINE ICD-10-CM R00.1 Bradycardia, unspecified ORIANA NOEL [place] Encounter Template Text not used by [place] Assessments - Encounter Diagnoses This section includes the primary and secondary diagnoses documented for the Encounter. Date/Time Primary/Secondary Diagnosis Diagnosis Name Provider Source Apr 13, 2023 09:12 AM PRIMARY Bradycardia, unspecified ORIANA NOEL [place] Apr 13, 2023 09:12 AM SECONDARY Other acute sinusitis ORIANA NOEL [place] Apr 13, 2023 09:12 AM SECONDARY Other allergic rhinitis ORIANA NOEL [place] Apr 13, 2023 09:12 AM SECONDARY Paroxysmal atrial fibrillation ORIANA NOEL [place] Plan of Treatment: Future Appointments (+ 6 months) and Future Tests (+/- 45 days) The Plan of Treatment section includes future care activities for the patient [facility] [place] [facility] This section includes future appointments and future orders which are active, pending or scheduled. Future Appointments This section includes appointments that were scheduled to occur 6 months from the date of the Encounter, up to a maximum of 20 appointments. The data comes from all [facility]3] facilities. Appointment Date/Time Appointment Type Appointme nt Facility Name Apr 15, 2023 01:00 PM [facility] May 17, 2023 09:00 AM [facility]ORY [facility] Jul 22, 2023 01:00 PM [facility] Sep 09, 2023 10:30 AM [facility] - [facility] Sep 30, 2023 08:30 AM AM[facility]ULATORY - [facility] Vital Signs: All taken on the encounter date This section contains inpatient and outpatient Vital Signs collected on the date of the Encounter. Date/Time Temperature Pulse Blood Pressure Respiratory Rate SP02 Pain Height Weight Body Mass Index Source Apr 13, 2023 08:57 AM 97.8 46 150/[address] [facility] [place] Advance Directives: All historical and current Section Date Range: From patient's date of to the date document was created. This section includes ALL of a patient's completed or amended [place] Advance and Rescinded Directives. The entries below indicate that a directive exists for the patient, but an actual copy is not included with this document. The data comes from all [place] facilities. Date Advance Directives Provider Source Nov 03, 2020 ADVANCE DIRECTIVE DISCUSSION TIKI DUKES [place] Encounter Notes: All associated encounter notes This section contains the clinical notes associated to the Encounter. Date/Time Encounter Note(s) Provider Source Apr 13, 2023 08:42 AM NURSE PRACTITIONER NOTE: LOCAL TITLE: NURSE PRACTIONER/SICK VISIT STANDARD TITLE: NURSE PRACTITIONER NOTE DATE OF NOTE: APR 13, 2023@08:42 ENTRY DATE: APR 13, 2023@08:42:14 AUTHOR: ORIANA NOELIGNER: URGENCY: STATUS: COMPLETED SICK CALL VISIT HUSSAIN LIZANDRO FORDE is a 63 y/o WHITE MALE who presents to [facility] sick call with c/o Sinus pain and pressure, runny nose and congestion x one week. Reports mild throat irritation and occasional phlegmy cough. Afebrile. No hx allergic rhinitis but reports sometimes he gets runny nose and sneezing with dust. Recently had cardiac ablation for AFib. RN reports low HR, per chart review often runs high 40s-low 60s. Is on metoprolol. Followed by cardiology. Denies YUNG, dizziness, chest discomfort. VA PCP: ======= DUNCAN COATES VITAL SIGNS: Blood Pressure: 150/73 (04/13/2023 08:57) Pain: 0 (04/13/2023 08:57) Patient Height: 70 in [177.8 cm] (09/08/2022 10:01) Patient Weight: 247.6 lb [112.31 kg] (09/08/2022 10:01) Pulse: 46 (04/13/2023 08:57) Respiration: 17 (04/13/2023 08:57) Temperature: 97.8 F [36.6 C] (04/13/2023 08:57) REVIEW OF SYSTEMS: see HPI PHYSICAL EXAMINATION: General: Well-appearing in no obvious distress. Mental Status: Alert and oriented x4. Head: Mild frontal and maxillary sinus pain with palpation. Eyes: PERRL. EOMI. Anicteric sclerae. ENT: TM and ear canals normal bilaterally. + nasal congestion and clear rhinorrhea. Moist oral mucosa. Posterior pharynx unremarkable. Neck: Supple. No lymphadenopathy. Lungs: CTAB. Normal chest excursion. Eupneic respirations. CV: Heart tones S1, S2. RRR, + bradycardia. No M/G/R. Psych: Normal mood and affect. Normal judgment. Cooperative with exam, follows commands. ASSESSMENT/PLAN: 1. Allergic rhinitis - start Claritin daily PRN, Flonase daily PRN. 2. allergic sinusitis - see above. 3. bradycardia - trends low HR. Will notify PCP so she's aware. Continue metoprolol per cardiology recommendation. 4. AFib - recent cardiac ablation; HRR today. No longer on anticoagulation. MEDICATIONS reviewed with [place] FOLLOW UP: Return to clinic 3-5 days if no improvement in symptoms. UPCOMING APPOINTMENTS: No data available /li/ BHARGAVI PANCHAL CERTIFIED NURSE PRACTITIONER Signed: 04/13/2023 09:12 Receipt Acknowledged By: 04/13/2023 09:45 /li/ DUNCAN COATES MD Primary Care Physician ORIANA NOEL
--- OUTSIDE RECORDS SUMMARY | 2024-01-25 13:04 | XMS_ITS | Encounter Summary ---
Author Name [facility] [place] Address [address] [place] [id number] Care Team Providers Care Parts Cataloguer Name Role Phone DUNCAN COATES Primary Care [...] Patient's Relationship to Policy Beyer [employer] ([id number]) PRESCRIPT ION [facility] Aug 14, 2017 [id number] GAIL FORDE PATIENT [facility] Aug 14, 2017 [id number] GAIL FORDE PATIENT Selected Encounter This section includes the information on record at [place] for the Encounter. Date/Time Encounter Type Encounter Description Reason Provider Source Apr 13, 2023 08:30 AM OFF/OP EST JUNE X REQ PHY/QHP PRIMARY CARE/MEDICINE ICD-10-CM R09.81 Nasal congestion REILLY RAMIREZ [place] Encounter Template Text not used by [place] Assessments - Encounter Diagnoses This section includes the primary and secondary diagnoses documented for the Encounter. Date/Time Primary/Secondary Diagnosis Diagnosis Name Provider Source Apr 13, 2023 09:24 AM PRIMARY Nasal congestion REILLY RAMIREZ [facility] Apr 13, 2023 09:24 AM SECONDARY Encounter for immunization REILLY RAMIREZ [place] Plan of Treatment: Future Appointments (+ 6 months) and Future Tests (+/- 45 days) The Plan of Treatment section includes future care activities for the patient from all [place] treatmentfacilities. This section includes future appointments and future orders which are active, pending or scheduled. Future Appointments This section includes appointments that were scheduled to occur 6 months from the date of the Encounter, up to a maximum of 20 appointments. The data comes from all [place] treatment facilities. Appointment Date/Time Appointment Type Appointme nt Facility Name Apr 15, 2023 01:00 PM [facility] May 17, 2023 09:00 AM [facility] Jul 22, 2023 01:00 PM [facility] Sep 09, 2023 10:30 AM [facility] Sep 30, 2023 08:30 AM AMBULATORY - MEDICINE [facility] Vital Signs: All taken on the encounter date This section contains inpatient and outpatient Vital Signs collected on the date of the Encounter. Date/Time Temperature Pulse Blood Pressure Respiratory Rate SP02 Pain Height Weight Body Mass Index Source Apr 13, 2023 08:57 AM 97.8 46 150/73 17 95 0 [place] Immunizations: All administered on the encounter date This section contains immunizations associated to the Encounter. Immunization Series Date Issued Reaction Comments HEP A, ADULT Apr 13, 2023 Advance Directives: All historical and current Section Date Range: From patient's date of to the date document was created. This section includes ALL of a patient's completed or amended [place] Advance and Rescinded Directives. The entries below indicate that a directive exists for the patient, but an actual copy is not included with this document. The data comes from all [place] facilities. Date Advance Directives Provider Source Nov 03, 2020 ADVANCE DIRECTIVE DISCUSSION TIKI DUKES [facility] [place] Encounter Notes: All associated encounter notes This section contains the clinical notes associated to the Encounter. Date/Time Encounter Note(s) Provider Source Apr 13, 2023 08:59 AM PRIMARY CARE NOTE: LOCAL TITLE: WALK-IN NOTE PRIMARY CARE (T) STANDARD TITLE: PRIMARY CARE NOTE DATE OF NOTE: APR 13, 2023@08:59 ENTRY DATE: APR 13, 2023@08:59:14 AUTHOR: REILLY RAMIREZ COSIGNER: URGENCY: STATUS: COMPLETED Data: 63year old MALE Marietta reports to Primary Care clinic for Walk-In visit. Marietta's PCP is DUNCAN COATES, last visit with PCP was 09/08/22, next visit scheduled for 09/14/23. Today Vet walks in to clinic with complaint of stuffy nose, occasional pressure behind eyes. Mild sore throat with cough. Cough is occasional. Symptoms started on Tuesday Last recorded Vital Signs are: Temperature:97.8 F [36.6 C] (04/13/2023 08:57) Pulse:46 (04/13/2023 08:57) Blood Pressure:150/73 (04/13/2023 08:57) Respiration:17 (04/13/2023 08:57) Pain:0 (04/13/2023 08:57) Vet reports current allergies are: Remote Allergy Data No Remote Allergy/ADR Data available for this patient Current Medications from Active Med list include: Active Outpatient Medications (including Supplies): Active Outpatient Medications Status = 1) PALIPERIDONE 1.5MG SA TAB TAKE THREE TABLETS BY MOUTH ACTIVE ONCE DAILY Active Non-VA Medications Status = 1) Non-VA ACETAMINOPHEN 500MG TAB 500MG BY MOUTH THREE ACTIVE TIMES DAILY NEEDED 2) Non-VA METOPROLOL TARTRATE 50MG TAB 50MG BY MOUTH ACTIVE TWICE DAILY 3 Total Medications Action: Marietta reports 5 day history of symptoms. Denies dyspnea Denies Nausea, vomiting or diarrhea Denies headache or dizziness Denies ear pain Denies fever or chills States appetite is good, States drinking plenty of water. Reports sleeping well. Reports using Mucinex 2x day weight good effect. Home covid negative. noted wtih AP HR of 46 regular. PAINTER AIRBRUSH made aware. RTC added for 2nd Hep A injection. referred to Aicha Muñoz PAINTER AIRBRUSH for evaluation. Reminders MH AIMS Testing Mar 30 Avg Risk Colorectal Cancer Screen Sep 08 Mental Health Treatment Plan DUE NOW Pneumococcal Conjugate Vaccine (PCV15/PCDUE NOW Medication Reconciliation DUE NOW Herpes Zoster (Shingles) Vaccine DUE NOW Sexual Orientation Nov 30 RHS Screen DUE NOW Eye Care At-Risk Screen DUE NOW Hepatitis A Vaccine for High Risk DUE NOW Sexual Orientation: The patient thinks of their sexual orientation as: Straight or Heterosexual RHS Screen: RHS Screen Environmental Check Upon inquiry, the individual reports that the environment is safe to proceed. Informed Consent to Screen and Document The individual consents to proceed with screening. The individual consents to documentation of responses. PRIMARY SCREEN: In the past 12 months, how often did a current or former intimate partner (e.g., boyfriend, girlfriend, , , sexual partner): 1. Scream or curse at you Never 2. Insult or talk down to you Never 3. Threaten you with harm Never 4. Physically hurt you Never 5. Force or pressure you to have sexual contact against your will, or when you were unable to say no Never ?? The HITS tool (items 1-4 above) is [place] copyright protected by Tobin Saucedo MD, and the user has full rights to use it throughout the [place] system. PRIMARY SCREEN RESULT: The Primary Screen is NEGATIVE. The individual answered never to all forms of IPV above (i.e., answered never to all 5 items) The individual accepts education and/or resources: No EDUCATION: Other: na Hepatitis A Vaccine for High Risk: Administered: HEP A, ADULT Date Administered: Apr 13, 2023 08:30 Drapery Inspector: [employer] Lot: [id number] Exp Date: Jan 31, 2025 [facility]: [id number] Admin Route/Site: INTRAMUSCULAR/LEFT DELTOID Dosage: 1mL Vaccine Information Statement(s): HEPATITIS A VACCINE VIS Nov 28, 2020 (TAMAZIGHT) Order By: Policy Administered By: Reilly Ramirez Combination Hepatitis A / Hepatitis B vaccine (3 dose series) /li/ REILLY RAMIREZ RN PRIMARY CARE RN Signed: 04/13/2023 09:24 REILLY RAMIREZ [place]
--- OUTSIDE RECORDS SUMMARY | 2024-01-25 13:05 | XMS_ITS | Encounter Summary ---
Author Name [facility] [place] Address [address] [place] [id number] Care Team Providers Care Fertilizer Applicator Name Role Phone DUNCAN COATES Primary Care [...] Patient's Relationship to Policy Beyer [employer] ([id number]) PRESCRIPT ION [facility] Aug 14, 2017 [id number] [phone] GAIL FORDE PATIENT [facility] Aug 14, 2017 [id number] GAIL FORDE PATIENT Selected Encounter This section includes the information on record at [place] for the Encounter. Date/Time Encounter Type Encounter Description Reason Pro vider Source May 17, 2023 12:00 AM Outpatient Encounter EVENT (HISTORICAL) IHE Encounter Template Text not used by [place] Plan of Treatment: Future Appointments (+ 6 [...] 20 appointments. The data comes from all [place] treatment facilities. Appointment Date/Time Appointment Type Appointme nt Facility Name Jul 22, 2023 01:00 PM AMBULATORY [facility] Sep 09, 2023 10:30 AM [facility] Sep 30, 2023 08:30 AM [facility] Oct 21, 2023 01:30 PM AMBULATORY - PSYCHIATRY [facility] Social History: Smoking Status (Most current) and Tobacco Use (All prior to encounter date) This section includes the most current, and the historical, smoking and tobacco- related health factors from the [place] facility where the Encounter took place. Current Smoking Status This section includes the most current smoking, or tobacco-related health factor, from the [place] facility where the Encounter took place. Date/Time Current Smoking Status Comment [facility] it Jul 26, 2022 01:30 PM VA-TOBACCO FORMER USER [facility] Tobacco Use History This section includes a history of the smoking, or tobacco-related health factors, that were collected on or before the date of the Encounter. The data comes from the [place] facility where the Encounter took place. Date/Time Smoking Status/Tobac co Use Comment Facility Jul 26, 2022 01:30 PM VA-TOBACCO QUIT 1 TO < 5 YRS [facility] Jul 20, 2021 01:30 PM VA-TOBACCO FORMER USER [facility] Jul 20, 2021 01:30 PM VA-TOBACCO QUIT 1 TO < 5 YRS [facility] Jul 28, 2020 01:45 PM VA-TOBACCO FORMER USER [facility] Jul 28, 2020 01:45 PM VA-TOBACCO QUIT 5 TO < 15 YRS [facility] Jun 04, 2019 03:15 PM VA-TOBACCO FORMER USER [facility] Jun 04, 2019 03:15 PM VA-TOBACCO QUIT 1 TO < 5 YRS [facility] Jun 08, 2018 12:43 PM VA-TOBACCO USE > 15 LESS THAN 30 YEARS 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 Jun 08, 2018 12:43 PM VA-TOBACCO USE MED NO [facility] Jun 08, 2018 12:43 PM VA-TOBACCO USE WI 30 MIN OF WAKEUP [facility] Jun 08, 2018 12:43 PM VA-TOBACCO USER EVERY DAY [facility] May 03, 2017 12:58 PM QUIT TOBACCO USE IN PAST YEAR [facility] Oct 19, 2016 01:18 PM CURRENT SMOKER [facility] Oct 19, 2016 01:18 PM V1-PT [facility] Oct 19, 2016 01:18 PM V1-PT THINKING ABOUT QUIT TOBACCO USE [facility] Oct 19, 2016 01:18 PM V1-TOBACCO CESS MEDS NOT PRESCRIBED not ready [facility] Mar 15, 2016 02:30 PM V1-PT NOT INTERESTED IN QUIT TOBACCO USE [facility] Oct 16, 2015 08:02 AM V1-PT NOT INTERESTED IN QUIT TOBACCO USE [facility] Apr 21, 2015 01:01 PM V1-PT NOT INTERESTED IN QUIT TOBACCO USE [facility] Sep 26, 2014 01:04 PM CURRENT SMOKER 1 pk every 2 days of cigarettes. [facility] Sep 26, 2014 01:04 PM V1-PT NOT INTERESTED IN QUIT TOBACCO USE [facility] July 06, 2013 12:51 PM CURRENT SMOKER less than a pack of cigarettes. [facility] July 06, 2013 12:51 PM V1-PT DECLINES TOBACCO CESSATION MEDS [facility] July 06, 2013 12:51 PM V1-PT THINKING ABOUT QUIT TOBACCO USE [facility] Mar 28, 2012 12:45 PM CURRENT SMOKER 1/2 PACK A DAY [facility] Mar 28, 2012 12:45 PM V1-PT DECLINES REF TO TOBACCO CESS PRGM [facility] Mar 28, 2012 12:45 PM V1-PT DECLINES TOBACCO CESSATION MEDS [facility] Mar 28, 2012 12:45 PM V1-PT THINKING ABOUT QUIT TOBACCO USE [facility] Feb 28, 2009 02:26 PM CURRENT SMOKER 1/2 ppd [facility] Feb 28, 2009 02:26 PM V1-PT DECLINES TOBACCO CESSATION MEDS [facility] Feb 28, 2009 02:26 PM V1-PT THINKING ABOUT QUIT TOBACCO USE [facility] Feb 29, 2008 03:31 PM CURRENT SMOKER 7 cigs per day [facility] Feb 29, 2008 03:31 PM V1-PT DECLINES TOBACCO CESSATION MEDS [facility] Feb 29, 2008 03:31 PM V1-PT THINKING ABOUT QUIT TOBACCO USE [facility] Feb 08, 2007 12:18 PM V1-PT DECLINES TOBACCO CESSATION MEDS [facility] Feb 08, 2007 12:18 PM V1-PT NOT INTERESTED IN QUIT TOBACCO USE [facility] Feb 08, 2006 09:10 AM CURRENT SMOKER 6 cigarettes/day [facility] Advance Directives: All historical and current Section Date Range: From patient's date of to the date document was created. This section includes ALL of a patient's completed or amended [place] Advance and Rescinded Directives. The entries below indicate that a directive exists for the patient, but an actual copy is not included with this document. The data comes from all [place] facilities. Date Advance Directives Provider Source Nov 03, 2020 ADVANCE DIRECTIVE DISCUSSION TIKI DUKES
--- OUTSIDE RECORDS SUMMARY | 2024-01-25 13:05 | XMS_ITS | Encounter Summary ---
Author Name [facility] [place] Address [address] [place] [address] Care Team Providers Care Needlemaker Name Role Phone DUNCAN COATES Primary Care [...] Patient's Relationship to Policy Beyer [employer] ([id number]) PRESCRIPT ION [facility] Aug 14, 2017 [id number] [phone] GAIL FORDE PATIENT [facility] ORGANIZ [facility] Aug 14, 2017 [id number] [phone] GAIL FORDE PATIENT Selected Encounter This section includes the information on record at [place] for the Encounter. Date/Time Encounter Type Encounter Description Reason Provider Source May 17, 2023 09:00 AM OFF/OP EST JUNE X REQ PHY/QHP PRIMARY CARE/MEDICINE ICD-10-CM Z23 Encounter for immunization YEN MCBRIDE IHE Encounter Template Text not used by VA Assessments - Encounter Diagnoses This section includes the primary and secondary diagnoses documented for the Encounter. Date/Time Primary/Secondary Diagnosis Diagnosis Name Provider Source May 17, 2023 09:20 AM PRIMARY Encounter for immunization JOSH MCBRIDE Plan of Treatment: Future Appointments (+ 6 months) and Future Tests (+/- 45 days) The Plan of Treatment section includes future care activities for the patient from all [place] treatmentfacilities. This section includes future appointments and future orders which are active, pending or scheduled. Future Appointments This section includes appointments that were scheduled to occur 6 months from the date of the Encounter, up to a maximum of 20 appointments. The data comes from all [place] treatment facilities. Appointment Date/Time Appointment Type Appointme nt Facility Name Jul 22, 2023 01:00 PM AMBULATORY - PS[place]CHIATRY [place] [facility] [place] [facility] Sep 09, 2023 10:30 AM AMBULATORY - MEDICINE [place] [facility] [place] [facility] Sep 30, 2023 08:30 AM AMBULATORY - MEDICINE [facility] Oct 21, 2023 01:30 PM [facility] [place] [facility] Immunizations: All administered on the encounter date This section contains immunizations associated to the Encounter. Immunization Series Date Issued Reaction Comments HEP A, ADULT May 17, 2023 Advance Directives: All historical and current Section Date Range: From patient's date of to the date document was created. This section includes ALL of a patient's completed or amended [place] Advance and Rescinded Directives. The entries below indicate that a directive exists for the patient, but an actual copy is not included with this document. The data comes from all [place] facilities. Date Advance Directives Provider Source Nov 03, 2020 ADVANCE DIRECTIVE DISCUSSION TIKI DUKES BYPRO Encounter Notes: All associated encounter notes This section contains the clinical notes associated to the Encounter. Date/Time Encounter Note(s) Provider Source May 17, 2023 09:15 AM PREVENTIVE MEDICIN E NURSING NOTE: LOCAL TITLE: CLINICAL REMINDERS/NURSING STANDARD TITLE: PREVENTIVE MEDICINE NURSING NOTE DATE OF NOTE: MAY 17, 2023@09:15 ENTRY DATE: MAY 17, 2023@09:15:15 AUTHOR: JOSH MCBRIDE EXP COSIGNER: URGENCY: STATUS: COMPLETED Avg Risk Colorectal Cancer Screen: AVERAGE RISK colorectal cancer screening is due based on information available to this clinical reminder Patient has arranged or is choosing to arrange this care independent of and without assistance from this [place]. Comment: to schedule with Non-VA provider once situated with Endocrinology. Pneumococcal Conjugate Vaccine (PCV15/PCV20): Refuses PCV vaccine Immunization: PNEUMOCOCCAL CONJUGATE, UNSPECIFIED FORMULATION Refusal Reason: PATIENT DECISION Patient refuses all immunization(s) in the PneumoPCV group Date Documented: 05/17/23 09:17 Alcohol Use Screen (AUDIT-C): Alcohol Screen: SCREEN FOR ALCOHOL (AUDIT-C) An alcohol screening test (AUDIT-C) was negative (score=0). 1. How often did you have a drink containing alcohol in the past year? Consider a drink to be a 12 ounce can or bottle of regular beer, 8 ounces of malt liquor, a 5 ounce glass of table wine, or a 1.5 ounce shot of liquor (like scotch, gin, or vodka). Never 2. How many drinks containing alcohol did you have on a typical day when you were drinking in the past year? Response not required due to responses to other questions. 3. How often did you have six or more drinks on one occasion in the past year? Response not required due to responses to other questions. Herpes Zoster (Shingles) Vaccine: The patient declines to receive the recommended dose of zoster (shingles) vaccine. Immunization: ZOSTER RECOMBINANT Refusal Reason: PATIENT DECISION Patient refuses all immunization(s) in the ZOSTER group Date Documented: 05/17/23 09:17 Eye Care At-Risk Screen : Patient identified to be at risk for the following eye condition(s): MACULAR DEGENERATION: Macular Degeneration Risk Factors Information: Reminder Term: VA-AMD RISK FACTORS Encounter Diagnosis: 10/16/2015@08:34 Z72.0 (ICD-10-CM) Tobacco use rank: PRIMARY Prov. Narr. - Tobacco use Action: Referral Ordered: Comprehensive Eye Exam Patient has an exclusion to Tele-Eye Screening. Schedule for a comprehensive eye exam ordered. Hepatitis A Vaccine for High Risk: Administered: HEP A, ADULT Date Administered: May 17, 2023 09:00 Paint Stock Clerk: Context app Lot: [id number] Date: Jan 31, [address] [facility]: [phone] Admin Route/Site: INTRAMUSCULAR/RIGHT DELTOID Dosage: 1mL Vaccine Information Statement(s): HEPATITIS A VACCINE VIS Nov 28, 2020 ([place]) Order By: Policy Administered By: Josh Mcbride Combination Hepatitis A / Hepatitis B vaccine (3 dose series) /li/ JOSH MCBRIDE RN REGISTERED NURSE Signed: 05/17/2023 09:21 JOSH MCBRIDEFIELD
--- OUTSIDE RECORDS SUMMARY | 2024-01-25 13:06 | XMS_ITS | Encounter Summary ---
Author Name [facility] [place] [facility] [place] Address [address] [place] [address] Care Team Providers Care Client Liaison Name Role Phone DUNCAN COATES Primary Care [...] Patient's Relationship to Policy Beyer [employer] ([id number]) PRESCRIPT ION [facility] Aug 14, 2017 [id number] [phone] GAIL FORDE PATIENT [facility] ORGANIZ [facility] Aug 14, 2017 [id number] [phone] GAIL FORDE PATIENT Selected Encounter This section includes the information on record at [place] for the Encounter. Date/Time Encounter Type Encounter Description Reason Pro vider Source Jun 09, 2023 01:14 PM Outpatient Encounter PODIATRY IHE Encounter Template Text not used by [place] Plan of Treatment: Future Appointments (+ 6 [...] 20 appointments. The data comes from all [place] treatment facilities. Appointment Date/Time Appointment Type Appointme nt Facility Name Jul 22, 2023 01:00 PM AMBULATORY - PS[place]IATRY [place] [facility] [place] [facility] Sep 09, 2023 10:30 AM AMBULATORY - MEDICINE [place] [facility] [place] [facility] Sep 30, 2023 08:30 AM AMBULATORY - MEDICINE [facility] Oct 21, 2023 01:30 PM AMBULATORY - PS[place]CHIATRY [place] [facility] [place] [facility] Social History: Smoking Status (Most current) and Tobacco Use (All prior to encounter date) This section includes the most current, and the historical, smoking and tobacco- related health factors from the [place] facility where the Encounter took place. Current Smoking Status This section includes the most current smoking, or tobacco-related health factor, from the [place] facility where the Encounter took place. Date/Time Current Smoking Status Comment [facility] Jul 26, 2022 01:30 PM VA-TOBACCO FORMER USER [place] [facility] [place] [facility] Tobacco Use History This section includes a history of the smoking, or tobacco-related health factors, that were collected on or before the date of the Encounter. The data comes from the [place] facility where the Encounter took place. Date/Time Smoking Status/Tobac co Use Comment Facility Jul 26, 2022 01:30 PM VA-TOBACCO QUIT 1 TO < 5 YRS [facility] [place] [facility] Jul 20, 2021 01:30 PM VA-TOBACCO FORMER USER [facility] [place] [facility] Jul 20, 2021 01:30 PM VA-TOBACCO QUIT 1 TO < 5 YRS [facility] [place] [facility] Jul 28, 2020 01:45 PM VA-TOBACCO FORMER USER [facility] [place] [facility] Jul 28, 2020 01:45 PM VA-TOBACCO QUIT 5 TO < 15 YRS [facility] [place] [facility] Jun 04, 2019 03:15 PM VA-TOBACCO FORMER USER [facility] [place] [facility] Jun 04, 2019 03:15 PM VA-TOBACCO QUIT 1 TO < 5 YRS [facility] [place] [facility] Jun 08, 2018 12:43 PM VA-TOBACCO USE > 15 LESS THAN 30 YEARS [facility] Jun 08, 2018 12:43 PM VA-TOBACCO USE ADVICE [facility] Jun 08, 2018 12:43 PM 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 [facility] Jun 08, 2018 12:43 PM VA-TOBACCO USE MED NO [facility] Jun 08, 2018 12:43 PM VA-TOBACCO USE WI 30 MIN OF WAKEUP [facility] Jun 08, 2018 12:43 PM VA-TOBACCO USER EVERY DAY [facility] May 03, 2017 12:58 PM QUIT TOBACCO USE IN PAST YEAR [facility] Oct 19, 2016 01:18 PM CURRENT SMOKER [facility] Oct 19, 2016 01:18 PM V1-PT DECLINES REF TO TOBACCO CESS PRGM [facility] Oct 19, 2016 01:18 PM V1-PT THINKING ABOUT QUIT TOBACCO USE [facility] Oct 19, 2016 01:18 PM V1-TOBACCO CESS MEDS NOT PRESCRIBED not ready [facility] Mar 15, 2016 02:30 PM V1-PT NOT INTERESTED IN QUIT TOBACCO USE [facility] Oct 16, 2015 08:02 AM V1-PT NOT INTERESTED IN QUIT TOBACCO USE [facility] Apr 21, 2015 01:01 PM V1-PT NOT INTERESTED IN QUIT TOBACCO USE [facility] Sep 26, 2014 01:04 PM CURRENT SMOKER 1 pk every 2 days of cigarettes. [facility] Sep 26, 2014 01:04 PM V1-PT NOT INTERESTED IN QUIT TOBACCO USE [facility] July 06, 2013 12:51 PM CURRENT SMOKER less than a pack of cigarettes. [facility] July 06, 2013 12:51 PM V1-PT DECLINES TOBACCO CESSATION MEDS [facility] July 06, 2013 12:51 PM V1-PT THINKING ABOUT QUIT TOBACCO USE [facility] Mar 28, 2012 12:45 PM CURRENT SMOKER 1/2 PACK A DAY [facility] Mar 28, 2012 12:45 PM V1-PT DECLINES REF TO TOBACCO CESS PRGM [facility] Mar 28, 2012 12:45 PM V1-PT DECLINES TOBACCO CESSATION MEDS [facility] Mar 28, 2012 12:45 PM V1-PT THINKING ABOUT QUIT TOBACCO USE [facility] Feb 28, 2009 02:26 PM CURRENT SMOKER 1/2 ppd [facility] Feb 28, 2009 02:26 PM V1-PT DECLINES TOBACCO CESSATION MEDS [facility] Feb 28, 2009 02:26 PM V1-PT THINKING ABOUT QUIT TOBACCO USE [facility] Feb 29, 2008 03:31 PM CURRENT SMOKER 7 cigs per day [facility] Feb 29, 2008 03:31 PM V1-PT DECLINES TOBACCO CESSATION MEDS [facility] Feb 29, 2008 03:31 PM V1-PT THINKING ABOUT QUIT TOBACCO USE [facility] Feb 08, 2007 12:18 PM V1-PT DECLINES TOBACCO CESSATION MEDS [facility] Feb 08, 2007 12:18 PM V1-PT NOT INTERESTED IN QUIT TOBACCO USE [facility] Feb 08, 2006 09:10 AM CURRENT SMOKER 6 cigarettes/day [facility] Advance Directives: All historical and current Section Date Range: From patient's date of to the date document was created. This section includes ALL of a patient's completed or amended [place] Advance and Rescinded Directives. The entries below indicate that a directive exists for the patient, but an actual copy is not included with this document. The data comes from all [place] facilities. Date Advance Directives Provider Source Nov 03, 2020 ADVANCE DIRECTIVE DISCUSSION TIKI DUKESFIELD Encounter Notes: All associated encounter notes This section contains the clinical notes associated to the Encounter. Date/Time Encounter Note(s) Provider Source Jun 09, 2023 01:15 PM PRIMARY CARE JANES RS: LOCAL TITLE: PATIENT LETTER - [facility] STANDARD TITLE: PRIMARY CARE LETTERS DATE OF NOTE: JUN 09, 2023@13:15 ENTRY DATE: JUN 09, 2023@13:15:27 AUTHOR: REJI LAWSON COSIGNER: URGENCY: STATUS: COMPLETED [facility]PARTMENT OF [facility] Telephone number: [phone] [address] BONE [address] [place], [place], [address] JUN 09, 2023 Dear , We would like to assist you in rescheduling a Podiatry appointment at the [place]. We have been unable to reach you by phone. To schedule this appointment please call us at ext. [phone]. Our booking appointment hours are Tuesday through Tuesday from 8:00 am to 4:00 pm. Please leave a message if you receive voicemail and let us know a good time and telephone number where we can reach you. If we don't hear back from you within 14 days from the date of this letter we will discontinue the request. If you have already scheduled this appointment, please disregard this letter. Your health is important to us. Sincerely, [facility] [address] [address] [place] [address] [facility] 25 [facility] [address] [place] [address] [place] [address] ext. [phone] [facility] 403 [facility] [address] [place] [address] [place] [address] ext. [phone] [facility] [address] [place] [address] ext. [phone] [facility] [address] [place] [address] REJI LAWSON Jun 09, 2023 01:14 PM TELEPHONE [place] NOTE: LOCAL TITLE: TELEPHONE NOTE/SPECIALTY CLINIC STANDARD TITLE: TELEPHONE ENCOUNTER NOTE DATE OF NOTE: JUN 09, 2023@13:14 ENTRY DATE: JUN 09, 2023@13:14:57 AUTHOR: REJI LAWSON COSIGNER: URGENCY: STATUS: COMPLETED TELEPHONE NOTE/SPECIALTY CLINIC Has ADDENDA RTC orders: Unable to contact patient: Attempts to contact: 1st attempt: Left voicemail 2nd attempt: Letter mailed 3rd attempt: 4th attempt: /marycarmen VALENTE Signed: 06/09/2023 13:15 06/21/2023 ADDENDUM STATUS: COMPLETED RTC orders: Unable to contact patient: Attempts to contact: 1st attempt: Left voicemail 2nd attempt: 3rd attempt: 4th attempt: /marycarmen VALENTE Signed: 06/21/2023 14:27 REJI LAWSON [place]
--- OUTSIDE RECORDS SUMMARY | 2024-01-25 13:06 | XMS_ITS | Encounter Summary ---
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 Date/Time Encounter Type Encounter Description Reason Pro vider Source Jun 08, 2023 08:07 AM Outpatient Encounter PRIMARY CARE/MEDICINE IHE Encounter Template Text not used by [place] Plan of Treatment: Future Appointments (+ 6 [...] 20 appointments. The data comes from all [place] treatment facilities. Appointment Date/Time Appointment Type Appointme nt Facility Name Jul 22, 2023 01:00 PM AMBULATORY - PS[facility]CHIATRY [facility] [place] [facility] Sep 09, 2023 10:30 AM AMBULATORY - MEDICINE [facility] [place] [facility] Sep 30, 2023 08:30 AM [facility] Oct 21, 2023 01:30 PM AMBULATORY - PSYCHIATRY [place] [facility] [facility] Social History: Smoking Status (Most current) and Tobacco Use (All prior to encounter date) This section includes the most current, and the historical, smoking and tobacco- related health factors from the [facility] facility where the Encounter took place. Current Smoking Status This section includes the most current smoking, or tobacco-related health factor, from the [place] facility where the Encounter took place. Date/Time Current Smoking Status Comment [facility] Jul 26, 2022 01:30 PM VA-TOBACCO FORMER USER [place] [facility] [place] [facility] Tobacco Use History This section includes a history of the smoking, or tobacco-related health factors, that were collected on or before the date of the Encounter. The data comes from the [place] facility where the Encounter took place. Date/Time Smoking Status/Tobac co Use Comment Facility Jul 26, 2022 01:30 PM VA-TOBACCO QUIT 1 TO < 5 YRS [facility] [place] [facility] Jul 20, 2021 01:30 PM VA-TOBACCO FORMER USER [facility] [place] [facility] Jul 20, 2021 01:30 PM VA-TOBACCO QUIT 1 TO < 5 YRS [facility] [place] [facility] Jul 28, 2020 01:45 PM VA-TOBACCO FORMER USER [facility] [place] [facility] Jul 28, 2020 01:45 PM VA-TOBACCO QUIT 5 TO < 15 YRS [facility] [place] [facility] Jun 04, 2019 03:15 PM VA-TOBACCO FORMER USER [facility] [place] [facility] Jun 04, 2019 03:15 PM VA-TOBACCO QUIT 1 TO < 5 YRS [facility] [place] [facility] Jun 08, 2018 12:43 PM VA-TOBACCO USE > 15 LESS THAN [address] 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 Jun 08, 2018 12:43 PM VA-TOBACCO USE MED NO [facility] Jun 08, 2018 12:43 PM VA-TOBACCO USE WI 30 MIN OF WAKEUP [facility] Jun 08, 2018 12:43 PM VA-TOBACCO USER EVERY DAY [facility] May 03, 2017 12:58 PM QUIT TOBACCO USE IN PAST YEAR [facility] Oct 19, 2016 01:18 PM CURRENT SMOKER [facility] Oct 19, 2016 01:18 PM V1-[facility] Oct 19, 2016 01:18 PM V1-PT THINKING ABOUT QUIT TOBACCO USE [facility] Oct 19, 2016 01:18 PM V1-TOBACCO CESS MEDS NOT PRESCRIBED not ready [facility] Mar 15, 2016 02:30 PM V1-PT NOT INTERESTED IN QUIT TOBACCO USE [facility] Oct 16, 2015 08:02 AM V1-PT NOT INTERESTED IN QUIT TOBACCO USE [facility] Apr 21, 2015 01:01 PM V1-PT NOT INTERESTED IN QUIT TOBACCO USE [facility] Sep 26, 2014 01:04 PM CURRENT SMOKER 1 pk every 2 days of cigarettes. [facility] Sep 26, 2014 01:04 PM V1-PT NOT INTERESTED IN QUIT TOBACCO USE [facility] July 06, 2013 12:51 PM CURRENT SMOKER less than a pack of cigarettes. [facility] July 06, 2013 12:51 PM V1-PT DECLINES TOBACCO CESSATION MEDS [facility] July 06, 2013 12:51 PM V1-PT THINKING ABOUT QUIT TOBACCO USE [facility] Mar 28, 2012 12:45 PM CURRENT SMOKER 1/2 PACK A DAY [facility] Mar 28, 2012 12:45 PM V1-PT DECLINES REF TO TOBACCO CESS PRGM [facility] Mar 28, 2012 12:45 PM V1-PT DECLINES TOBACCO CESSATION MEDS [facility] Mar 28, 2012 12:45 PM V1-PT THINKING ABOUT QUIT TOBACCO USE [facility] Feb 28, 2009 02:26 PM CURRENT SMOKER 1/2 ppd [facility] Feb 28, 2009 02:26 PM V1-PT DECLINES TOBACCO CESSATION MEDS [facility] Feb 28, 2009 02:26 PM V1-PT THINKING ABOUT QUIT TOBACCO USE [facility] Feb 29, 2008 03:31 PM CURRENT SMOKER 7 cigs per day [facility] Feb 29, 2008 03:31 PM V1-PT DECLINES TOBACCO CESSATION MEDS [facility] Feb 29, 2008 03:31 PM V1-PT THINKING ABOUT QUIT TOBACCO USE [facility] Feb 08, 2007 12:18 PM V1-PT DECLINES TOBACCO CESSATION MEDS [facility] Feb 08, 2007 12:18 PM V1-PT NOT INTERESTED IN QUIT TOBACCO USE [facility] Feb 08, 2006 09:10 AM CURRENT SMOKER 6 cigarettes/day [facility] Advance Directives: All historical and current Section Date Range: From patient's date of to the date document was created. This section includes ALL of a patient's completed or amended [place] Advance and Rescinded Directives. The entries below indicate that a directive exists for the patient, but an actual copy is not included with this document. The data comes from all [place] facilities. Date Advance Directives Provider Source Nov 03, 2020 ADVANCE DIRECTIVE DISCUSSION TIKI DUKESFIELD Encounter Notes: All associated encounter notes This section contains the clinical notes associated to the Encounter. Date/Time Encounter Note(s) Provider Source Jun 08, 2023 08:07 AM PRIMARY CARE NOTE: LOCAL TITLE: WALK-IN NOTE PRIMARY CARE (T) STANDARD TITLE: PRIMARY CARE NOTE DATE OF NOTE: JUN 08, 2023@08:07 ENTRY DATE: JUN 08, 2023@08:07:49 AUTHOR: OLIVERIO DE LA CRUZ EXP COSIGNER: URGENCY: STATUS: COMPLETED <====Click to Start Advanced Medical Support presents to the Primary Care clinic with the following request: [ ]Medication Renewal/Refill [ ]Consultation with Team RN [ ]Symptoms [ X ]Other The [facility] states they are: [ ]Waiting [ X ]Not Waiting No Walk in visit scheduled with PACT Nurse [ X ] At this encounter the [facility]'s demographics were verified. [ X ] At this encounter the 's Insurance information was verified. [ X ] At this encounter the below scheduled visits for the were discussed and appointment reminder card was offered. Future appointments: 07/22/2023 13:00 CWM/NO/MHC/CLP2 09/14/2023 10:00 CWM/SO/PACT 10 Vet came into the clinic to cancel his appt with Dr Stark for 06/09/23. Vet would like a call back to reschedule appt. Please call vet. Thank you. /li/ OLIVERIO VALENTE Signed: 06/08/2023 08:10 Receipt Acknowledged By: 06/09/2023 13:14 /li/ OLIVERIO GARDUNO VAUGHAN
--- OUTSIDE RECORDS SUMMARY | 2024-01-25 13:06 | XMS_ITS | Encounter Summary ---
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 Date/Time Encounter Type Encounter Description Reason Pro vider Source June 17, 2023 11:00 AM Outpatient Encounter PODIATRY IHE Encounter Template Text not used by MD Plan of Treatment: Future Appointments (+ 6 [...] 20 appointments. The data comes from all MD treatment facilities. Appointment Date/Time Appointment Type Appointme nt Facility Name Jul 22, 2023 01:00 PM AMBULATORY - [facility]IATRY [facility] [place] [facility] Sep 09, 2023 10:30 AM AMBULATORY [facility] MEDICINE [facility] [place] [facility] Sep 30, 2023 08:30 AM [facility] Oct 21, 2023 01:30 PM AMBULATORY - PSYCHIATRY [facility] [place] [facility] Social History: Smoking Status (Most current) and Tobacco Use (All prior to encounter date) This section includes the most current, and the historical, smoking and tobacco- related health factors from the VA facility where the Encounter took place. Current Smoking Status This section includes the most current smoking, or tobacco-related health factor, from the MD facility where the Encounter took place. Date/Time Current Smoking Status Comment [facility] Jul 26, 2022 01:30 PM VA-TOBACCO FORMER USER [place] [facility] [place] [facility] Tobacco Use History This section includes a history of the smoking, or tobacco-related health factors, that were collected on or before the date of the Encounter. The data comes from the MD facility where the Encounter took place. Date/Time Smoking Status/Tobac co Use Comment Facility Jul 26, 2022 01:30 PM VA-TOBACCO QUIT 1 TO < 5 YRS [facility] [place] [facility] Jul 20, 2021 01:30 PM VA-TOBACCO FORMER USER [facility] [place] [facility] Jul 20, 2021 01:30 PM VA-TOBACCO QUIT 1 TO < 5 YRS [facility] [place] [facility] Jul 28, 2020 01:45 PM VA-TOBACCO FORMER USER [facility] [place] [facility] Jul 28, 2020 01:45 PM VA-TOBACCO QUIT 5 TO < 15 YRS [facility] [place] [facility] Jun 04, 2019 03:15 PM VA-TOBACCO FORMER USER [facility] [place] [facility] Jun 04, 2019 03:15 PM VA-TOBACCO QUIT 1 TO < 5 YRS [facility] [place] [facility] Jun 08, 2018 12:43 PM VA-TOBACCO USE > 15 LESS THAN 30 YEARS [facility] Jun 08, 2018 12:43 PM VA-TOBACCO USE ADVICE [facility] Jun 08, 2018 12:43 PM 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 [facility] Jun 08, 2018 12:43 PM VA-TOBACCO USE MED NO [facility] Jun 08, 2018 12:43 PM VA-TOBACCO USE WI 30 MIN OF WAKEUP [facility] Jun 08, 2018 12:43 PM VA-TOBACCO USER EVERY DAY [facility] May 03, 2017 12:58 PM QUIT TOBACCO USE IN PAST YEAR [facility] Oct 19, 2016 01:18 PM CURRENT SMOKER [facility] Oct 19, 2016 01:18 PM V1-PT DECLINES REF TO TOBACCO CESS PRGM [facility] Oct 19, 2016 01:18 PM V1-PT THINKING ABOUT QUIT TOBACCO USE [facility] Oct 19, 2016 01:18 PM V1-TOBACCO CESS MEDS NOT PRESCRIBED not ready [facility] Mar 15, 2016 02:30 PM V1-PT NOT INTERESTED IN QUIT TOBACCO USE [facility] Oct 16, 2015 08:02 AM V1-PT NOT INTERESTED IN QUIT TOBACCO USE [facility] Apr 21, 2015 01:01 PM V1-PT NOT INTERESTED IN QUIT TOBACCO USE [facility] Sep 26, 2014 01:04 PM CURRENT SMOKER 1 pk every 2 days of cigarettes. [facility] Sep 26, 2014 01:04 PM V1-PT NOT INTERESTED IN QUIT TOBACCO USE [facility] July 06, 2013 12:51 PM CURRENT SMOKER less than a pack of cigarettes. [facility] July 06, 2013 12:51 PM V1-PT DECLINES TOBACCO CESSATION MEDS [facility] July 06, 2013 12:51 PM V1-PT THINKING ABOUT QUIT TOBACCO USE [facility] Mar 28, 2012 12:45 PM CURRENT SMOKER 1/2 PACK A DAY [facility] Mar 28, 2012 12:45 PM V1-PT DECLINES REF TO TOBACCO CESS PRGM [facility] Mar 28, 2012 12:45 PM V1-PT DECLINES TOBACCO CESSATION MEDS [facility] Mar 28, 2012 12:45 PM V1-PT THINKING ABOUT QUIT TOBACCO USE [facility] Feb 28, 2009 02:26 PM CURRENT SMOKER 1/2 ppd [facility] Feb 28, 2009 02:26 PM V1-PT DECLINES TOBACCO CESSATION MEDS [facility] Feb 28, 2009 02:26 PM V1-PT THINKING ABOUT QUIT TOBACCO USE [facility] Feb 29, 2008 03:31 PM CURRENT SMOKER 7 cigs per day [facility] Feb 29, 2008 03:31 PM V1-PT DECLINES TOBACCO CESSATION MEDS [facility] Feb 29, 2008 03:31 PM V1-PT THINKING ABOUT QUIT TOBACCO USE [facility] Feb 08, 2007 12:18 PM V1-PT DECLINES TOBACCO CESSATION MEDS [facility] Feb 08, 2007 12:18 PM V1-PT NOT INTERESTED IN QUIT TOBACCO USE [facility] Feb 08, 2006 09:10 AM CURRENT SMOKER 6 cigarettes/day [facility] Advance Directives: All historical and current Section Date Range: From patient's date of to the date document was created. This section includes ALL of a patient's completed or amended MD Advance and Rescinded Directives. The entries below indicate that a directive exists for the patient, but an actual copy is not included with this document. The data comes from all MD facilities. Date Advance Directives Provider Source Nov 03, 2020 ADVANCE DIRECTIVE DISCUSSION TIKI DUKESFIELD Encounter Notes: All associated encounter notes This section contains the clinical notes associated to the Encounter. Date/Time Encounter Note(s) Provider Source June 17, 2023 11:00 AM PRIMARY CARE NOTE: LOCAL TITLE: WALK-IN NOTE PRIMARY CARE (T) STANDARD TITLE: PRIMARY CARE NOTE DATE OF NOTE: JUNE 17, 2023@11:00 ENTRY DATE: JUNE 17, 2023@11:00:28 AUTHOR: ISREAL OLVERA COSIGNER: URGENCY: STATUS: COMPLETED <====Click to Start Advanced Medical Support [place] presents to the Primary Care clinic with the following request: [ ]Medication Renewal/Refill [ ]Consultation with Team RN [ ]Symptoms [ X ]Other The [place] states they are: [ ]Waiting [ X ]Not Waiting No Walk in visit scheduled with PACT Nurse [ X ] At this encounter the [place]'s demographics were verified. [ X ] At this encounter the [place]'s Insurance information was verified. [ X ] At this encounter the below scheduled visits for the [place] were discussed and appointment reminder card was offered. Future appointments: 07/22/2023 13:00 CWM/NO/MHC/CLP2 09/14/2023 10:00 CWM/SO/PACT 10 Patient requesting to reschedule cancelled appointment. Please call him at: [phone] /es/ ISREAL VALENTE Signed: 06/17/2023 11:01 Receipt Acknowledged By: 06/21/2023 14:26 /es/ ISREAL MCCALL
--- OUTSIDE RECORDS SUMMARY | 2024-01-25 13:07 | XMS_ITS | Encounter Summary ---
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 Date/Time Encounter Type Encounter Description Reason Provider Source Sep 09, 2023 10:30 AM OFFICE O/P EST LOW 20 MIN PRIMARY CARE/MEDICINE ICD-10-CM I48.0 Paroxysmal atrial fibrillation DUNCAN COATES Encounter Template Text not used by CO Assessments - Encounter Diagnoses This section includes the primary and secondary diagnoses documented for the Encounter. Date/Time Primary/Secondary Diagnosis Diagnosis Name Provider Source Sep 09, 2023 11:03 AM PRIMARY Paroxysmal atrial fibrillation DUNCAN COATES Plan of Treatment: Future Appointments (+ 6 months) and Future Tests (+/- 45 days) The Plan of Treatment section includes future care activities for the patient [facility] This section includes future appointments and future orders which are active, pending or scheduled. Future Appointments This section includes appointments that were scheduled to occur 6 months from the date of the Encounter, up to a maximum of 20 appointments. The data comes from all [facility] facilities. Appointment Date/Time Appointment Type Appointme nt Facility Name Sep 30, 2023 08:30 AM AMBULATORY - MEDICINE [facility] Oct 21, 2023 01:30 PM AMBULATORY - PSYCHIATRY [facility] Jan 20, 2024 01:30 PM AMBULATORY PSYCHIATRY [facility] Feb 24, 2024 08:30 AM AMBULATORY - MEDICINE [facility] Social History: Smoking Status (Most current) and Tobacco Use (All prior to encounter date) This section includes the most current, and the historical, smoking and tobacco- related health factors from the CO facility where the Encounter took place. Current Smoking Status This section includes the most current smoking, or tobacco-related health factor, from the CO facility where the Encounter took place. Date/Time Current Smoking Status Comment Facil ity Sep 09, 2023 10:30 AM CO-TOBACCO FORMER USER [facility] Tobacco Use History This section includes a history of the smoking, or tobacco-related health factors, that were collected on or before the date of the Encounter. The data comes from the CO facility where the Encounter took place. Date/Time Smoking Status/Tobacco Use Comment F acility Sep 09, 2023 10:30 AM CO-TOBACCO QUIT 5 TO < 15 YRS [facility] Advance Directives: All historical and current Section [...] 03, 2020 ADVANCE DIRECTIVE DISCUSSION TIKI DUKES [facility] Encounter Notes: All associated encounter notes This section contains the clinical notes associated to the Encounter. Date/Time Encounter Note(s) Provider Source Sep 09, 2023 10:44 AM PREVENTIVE MEDICIN E NURSING NOTE: LOCAL TITLE: CLINICAL REMINDERS/NURSING STANDARD TITLE: PREVENTIVE MEDICINE NURSING NOTE DATE OF NOTE: SEP 09, 2023@10:44 ENTRY DATE: SEP 09, 2023@10:45:02 AUTHOR: KWAN CARVER COSIGNER: URGENCY: STATUS: COMPLETED Advance Directive Screen MH AD: Patient does not have a completed advance directive on file at any facility, VA or outside. S/he is not interested in completing one at this time. The patient received education about Advance Directives and written notification of his/her rights. Pneumococcal Conjugate Vaccine (PCV15/PCV20): Refuses PCV vaccine Immunization: PNEUMOCOCCAL CONJUGATE, UNSPECIFIED FORMULATION Refusal Reason: PATIENT DECISION Patient refuses all immunization(s) in the PneumoPCV group Date Documented: 09/09/23 10:45 Tobacco Use Screening: The patient is a former tobacco user. The patient quit five to less than fifteen years ago. COVID-19 Immunization: Referred to another clinic for immunization (desired vaccine unavailable at this location) Herpes Zoster (Shingles) Vaccine: The patient declines to receive the recommended dose of zoster (shingles) vaccine. Immunization: ZOSTER RECOMBINANT Refusal Reason: PATIENT DECISION Patient refuses all immunization(s) in the ZOSTER group Date Documented: 09/09/23 10:45 Eye Care At-Risk Screen : Patient identified to be at risk for the following eye condition(s): MACULAR DEGENERATION: Macular Degeneration Risk Factors Information: Reminder Term: VA-AMD RISK FACTORS Encounter Diagnosis: 10/16/2015@08:34 Z72.0 (ICD-10-CM) Tobacco use rank: PRIMARY Prov. Narr. - Tobacco use Action: Referral Ordered: Comprehensive Eye Exam Patient has an exclusion to Tele-Eye Screening. Schedule for a comprehensive eye exam ordered. /li/ GAETANO LE 10 Signed: 09/09/2023 10:46 KWAN CARVER Sep 09, 2023 07:00 AM PHYSICIAN NOTE: LOCAL TITLE: MD RYAN STANDARD TITLE: PHYSICIAN NOTE DATE OF NOTE: SEP 09, 2023@07:00 ENTRY DATE: SEP 09, 2023@07:00:50 AUTHOR: DUNCAN COATES EXP COSIGNER: URGENCY: STATUS: COMPLETED HISTORY OF PRESENT ILLNESS: HUSSAIN FORDE, is a 63 yo MALE , who presents at the [facility] for his annual exam. He maintains a nonVA PCP: Dr Meza. He utilizes and podiatry services at the CO. NonVA Providers: Power Supply Engineer: Dr Oneal ([facility]) Tattoo Designer: Dr Clarke ([place]) PCP: Dr Marlys Meza of [facility] Active problems - Computerized Problem List is the source for the followin. Bradycardia 2. Housing adequate 3. Asthma 4. Irritable bowel syndrome with diarrhea 5. Obsessive compulsive disorder 6. Paranoid disorder 7. Schizophrenia 8. History of alcohol abuse 9. Atrial fibrillation and flutter 10. Exercise Stress Test 11. ECHO 12. Obesity 13. Colonoscopy Screening 14. Housing instability 15. Delusional disorder 16. Tobacco dependence in remission The following VA and Non-VA meds were reconciled with patient: Active Outpatient Medications (including Supplies): Issue Date Status Last Fill Active Outpatient Medications Refills Expiration ======= 1) PALIPERIDONE 1.5MG SA TAB Qty: 270 for ACTIVE Issu:12-30-22 90 days Sig: TAKE THREE TABLETS BY Refills: 1 Last:08-01-23 MOUTH ONCE DAILY Expr:12-31-23 Start Date Active Non-VA Medications Refills Expiration ======= 1) Non-VA ACETAMINOPHEN 500MG TAB Sig: ACTIVE 500MG BY MOUTH THREE TIMES DAILY NEEDED 2) Non-VA METOPROLOL TARTRATE 50MG TAB ACTIVE SiMG BY MOUTH TWICE DAILY 3 Total Medications ALLERGIES: ========= Patient has answered NKA HISTORY: PERIOD OF SERVICE - [facility] [employer] FROM Sep TO Jan COMBAT SERVICE INDICATED: No VITAL SIGNS: Blood Pressure 145/78 (09/09/2023 10:43) Pulse 50 (09/09/2023 10:43) Respiration 18 (09/09/2023 10:43) Pulse Oximetry 96% (09/09/2023 10:43) Temperature 98.5 F [36.9 C] (09/09/2023 10:43) Pain 0 (09/09/2023 10:43) Height 70 in [177.8 cm] (09/09/2023 10:43) Weight 241.6 lb [109.59 kg] (09/09/2023 10:43) BMI BMI: 34.7 REVIEW OF SYSTEMS: CARDIOVASCULAR: No chest pain, no palpitations RESPIRATORY: No SOB, no wheezing GASTROINTESTINAL: No abd pain, no N/V/D MUSCULOSKELETAL: No joint pain, no joint swelling PSYCHIATRIC: No anxiety, no trouble sleeping, no depression NEUROLOGIC: No H/A, no numbness, no weakness, no tingling EXAMINATION: GENERAL: WD/WN , pleasant & in NAD HEENT: Moist mucosa NECK: Supple, no carotid bruits HEART: RRR, S1-S2, no murmurs LUNGS: CTA B/L ABDOMEN: Soft, NT/ND, + BS x 4 Quads PERIPH PULSES: 2+ B/L EXTREMITIES: FROM x 4, no edema NEUROLOGIC: AAO x3, no focal findings PSYCHIATRIC: Good eye contact, affect normal ASSESSMENT/PLAN: 1. Delusional D/O 2. Obsessive/Compulsive D/O 3. Paranoid D/O 4. Schizophrenia -on paliperidone 4.5mg/QHS, managed by [facility] 5. Paroxysmal Atrial Fib/Flutter: with 2:1 block, on metoprolol tartrate 50mg BID, s/p ablation 02/2022, managed by Dr Rahul Oneal/cardiology Q6 mths 6. Chronic Sinus Bradycardia: managed by cardiology 7. Tobacco Dependence: in remission, quit 2018, (smoked 40+ yrs) 8. Colonoscopy Screenin06/22/16, Dr Clarke, unremarkable per notes, managed by nonVA PCP 9. Obesity: BMI ~35, counseled on weight loss FOLLOW UP: 1 year - Annual - bring PCP labs ========= UPCOMING APPOINTMENTS: 09/30/2023 08:30 CWM/SO/PODIATRY/ROSS 10/21/2023 13:30 CWM/NO/MHC/CLP2 No barriers; Patient understands and agrees to current treatment plan. If pt has any questions, concerns, or changes in current health status he/she will call or come in to the VA. BMI>30/>24.99 High Risk: Patient declines to discuss weight management. Patient declined weight discussion. Discussed revisiting at a future visit. Medication Reconciliation: Outpatient: Has the patient been taking medications as documented in the EMLR? YES: The patient has been taking medications as documented in the EMLR. Essential Medication List for Review used to complete this medication reconciliation. INCLUDED IN THIS LIST: Alphabetical list of active outpatient prescriptions dispensed from this CO (local) and dispensed from another CO or DoD facility (remote) as well as inpatient orders (local, pending and active), local clinic medications, locally documented non-VA medications, and local prescriptions that have or been discontinued in the past 90 days. - All changes in medications, including all non-VA/Herbal/OTC medications were entered into CPRS. - If there were any medications the patient should no longer take, they were discontinued. - The patient/caregiver was instructed to update this list, discard old lists, and take this list to the next appointment, whether with a VA or non-VA provider. JLV Link Data on this list may not be complete. Please check JLV. Allergies/ADRs (Tool #5) FACILITY ALLERGY/ADR -------- No Remote Allergy/ADR Data available for this patient [facility] No Known Allergies Med [facility] (Tool #1) INCLUDED IN THIS LIST: Alphabetical list of active outpatient prescriptions dispensed from this CO (local) and dispensed from another CO or DoD facility (remote) as well as inpatient orders (local pending and active), local clinic medications, locally documented non-VA medications, and local prescriptions that have or been discontinued in the past 90 days. Non-VA Meds Last Documented On: Sep 08, 2022 NOTE The display of VA prescriptions dispensed from another VA or DoD facility (remote) is limited to active outpatient prescription entries matched to National Drug File at the originating site and may not include some items such as investigational drugs, compounds, etc. NOT INCLUDED IN THIS LIST: Medications self-entered by the patient into personal health records (i.e. [facility]) are NOT included in this list. Non-VA medications documented outside this CO, remote inpatient orders (regardless of status) and remote clinic medications are NOT included in this list. The patient and provider must always discuss medications the patient is taking, regardless of where the medication was dispensed or obtained. ------ Non-VA ACETAMINOPHEN 500MG TAB TAKE ONE TABLET BY MOUTH THREE TIMES DAILY NEEDED Non-VA medication not recommended by VA provider. Medication prescribed by Non-VA provider. OUTPT FLUTICASONE PROP 50MCG 120D NASAL INHL (Status = ) INSTILL 1 SPRAY INTO EACH NOSTRIL ONCE DAILY NEEDED FOR NASAL IRRITATION/INFLAMMATION Rx# [id number] Last Released: 04/13/23 Qty/Days Supply: Rx Expiration Date: 07/12/23 Refills Remainin Indication: FOR NASAL IRRITATION/INFLAMMATION OUTPT LORATADINE 10MG TAB (Status = ) TAKE ONE TABLET BY MOUTH ONCE DAILY NEEDED FOR ALLERGY Rx# [id number] Last Released: 04/13/23 Qty/Days Supply: Rx Expiration Date: 07/12/23 Refills Remainin Indication: FOR ALLERGY Non-VA METOPROLOL TARTRATE 50MG TAB TAKE ONE TABLET BY MOUTH TWICE DAILY Non-VA medication not recommended by VA provider. Medication prescribed by Non-VA provider. OUTPT PALIPERIDONE 1.5MG SA TAB (Status = Active) TAKE THREE TABLETS BY MOUTH ONCE DAILY Rx# [id number] Last Released: 07/27/23 Qty/Days Supply: 270 Rx Expiration Date: 12/31/23 Refills Remainin ------ SUPPLIES ------ /li/ DUNCAN COATES MD Primary Care Physician Signed: 09/09/2023 11:18 DUNCAN COATES [facility]
--- OUTSIDE RECORDS SUMMARY | 2024-01-25 13:07 | XMS_ITS ---
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 Date/Time Encounter Type Encounter Description Reason Provider Source Jul 22, 2023 01:00 PM MTMS BY PHARM ADDL 15 MIN [facility] - IND ICD-10-CM F22 Delusional disorders LUDY GARNICA Encounter Template Text not used by VA Assessments - Encounter Diagnoses This section includes the primary and secondary diagnoses documented for the Encounter. Date/Time Primary/Secondary Diagnosis Diagnosis Name Provider Source Jul 26, 2023 02:22 PM PRIMARY Delusional disorders LUDY GARNICA ER [facility]SI [facility] Plan of Treatment: Future Appointments (+ 6 months) and Future Tests (+/- 45 days) The Plan of Treatment section includes future care activities for the patient from all [place] treatmentfacilities. This section includes future appointments and future orders which are active, pending or scheduled. Future Appointments This section includes appointments that were scheduled to occur 6 months from the date of the Encounter, up to a maximum of 20 appointments. The data comes from all [place] treatment facilities. Appointment Date/Time Appointment Type Appointme nt Facility Name Sep 09, 2023 10:30 AM AMBULATORY - MEDICINE [place] [facility] [place] [facility] Sep 30, 2023 08:30 AM [facility] Oct 21, 2023 01:30 PM AMBULATORY - PSYCHIATRY [place] [facility] [place] [facility] Jan 20, 2024 01:30 PM [facility] Social History: Smoking Status (Most current) [...] took place. Date/Time Current Smoking Status Comment [facility] husam Jul 26, 2022 01:30 PM VA-TOBACCO FOR[facility]ER [facility] Tobacco Use History This section includes a history of the smoking, or tobacco-related health factors, that were collected on or before the date of the Encounter. The data comes from the [place] facility where the Encounter took place. Date/Time Smoking Status/Tobac co Use Comment Facility Jul 26, 2022 01:30 PM VA-TOBACCO QUIT 1 TO < 5 YRS [place] [facility] [place] [facility] Jul 20, 2021 01:30 PM VA-TOBACCO FORMER USER [place] [facility] [place] [facility] Jul 20, 2021 01:30 PM VA-TOBACCO QUIT 1 TO < 5 YRS [place] [facility] [facility] Jul 28, 2020 01:45 PM [facility]ACCO [facility] [place] [facility] Jul 28, 2020 01:45 PM VA-TOBACCO QUIT 5 TO < 15 YRS [place] [facility] [place] [facility] Jun 04, 2019 03:15 PM VA-TOBACCO FORMER USER [place] [facility] [place] [place] [facility] Jun 04, 2019 03:15 PM VA-TOBACCO QUIT 1 TO < 5 YRS [place] [facility] [place] [facility] Jun 08, 2018 12:43 PM VA-TOBACCO USE > 15 LESS THAN 30 YEARS [place] [facility] [facility] Jun 08, 2018 12:43 PM VA-TOBACCO USE [facility]ICE [facility] Jun 08, 2018 12:43 PM VA-TOBACCO USE [place] NO [place] [facility] Jun 08, 2018 12:43 PM VA-TOBACCO USE MED NO [place] [facility] Jun 08, 2018 12:43 PM VA-TOBACCO USE WI 30 MIN OF WAKEUP [facility] Jun 08, 2018 12:43 PM VA-TOBACCO USER EVERY DAY [place] [facility] [facility] May 03, 2017 12:58 PM QUIT TOBACCO USE IN PAST YEAR [facility] [place] [facility] Oct 19, 2016 01:18 PM CURRENT SMOKER [place] [facility] [place] [place] [facility] Oct 19, 2016 01:18 PM V1-PT DECLINES REF TO TOBACCO CESS [facility] [place] [facility] Oct 19, 2016 01:18 PM V1-PT THINKING ABOUT QUIT TOBACCO USE [facility] [place] [facility] Oct 19, 2016 01:18 PM V1-TOBACCO CESS MEDS NOT PRESCRIBED not ready [facility] [place] [facility] Mar 15, 2016 02:30 PM V1-PT NOT INTERESTED IN QUIT TOBACCO USE [facility] [place] [facility] Oct 16, 2015 08:02 AM V1-PT NOT INTERESTED IN QUIT TOBACCO USE [place] [facility] [facility] Apr 21, 2015 01:01 PM V1-PT NOT INTERESTED IN QUIT TOBACCO USE [facility] [place] [facility] Sep 26, 2014 01:04 PM CURRENT SMOKER 1 pk every 2 days of cigarettes. [facility] [place] [facility] Sep 26, 2014 01:04 PM V1-PT NOT INTERESTED IN QUIT TOBACCO USE [facility] [place] [facility] July 06, 2013 12:51 PM CURRENT SMOKER less than a pack of cigarettes. [facility] July 06, 2013 12:51 PM V1-PT DECLINES TOBACCO CESSATION MEDS [facility] July 06, 2013 12:51 PM V1-PT THINKING ABOUT QUIT TOBACCO USE [facility] Mar 28, 2012 12:45 PM CURRENT SMOKER 1/2 PACK A DAY [facility] Mar 28, 2012 12:45 PM V1-PT DECLINES REF TO TOBACCO CESS PRGM [facility] Mar 28, 2012 12:45 PM V1-PT DECLINES TOBACCO CESSATION MEDS [facility] Mar 28, 2012 12:45 PM V1-PT THINKING ABOUT QUIT TOBACCO USE [facility] Feb 28, 2009 02:26 PM CURRENT SMOKER 1/2 ppd [facility] Feb 28, 2009 02:26 PM V1-PT DECLINES TOBACCO CESSATION MEDS [facility] Feb 28, 2009 02:26 PM V1-PT THINKING ABOUT QUIT TOBACCO USE [facility] Feb 29, 2008 03:31 PM CURRENT SMOKER 7 cigs per day [facility] Feb 29, 2008 03:31 PM V1-PT DECLINES TOBACCO CESSATION MEDS [facility] Feb 29, 2008 03:31 PM V1-PT THINKING ABOUT QUIT TOBACCO USE [facility] Feb 08, 2007 12:18 PM V1-PT DECLINES TOBACCO CESSATION MEDS [facility] Feb 08, 2007 12:18 PM V1-PT NOT INTERESTED IN QUIT TOBACCO USE [facility] Feb 08, 2006 09:10 AM CURRENT SMOKER 6 cigarettes/day [facility] Advance Directives: All historical and [...] 03, 2020 ADVANCE DIRECTIVE DISCUSSION TIKI DUKES KENT Encounter Notes: All associated encounter notes This section contains the clinical notes associated to the Encounter. Date/Time Encounter Note(s) Provider Source Jul 22, 2023 01:01 PM PHARMACY MEDICATION MGT NOTE: LOCAL TITLE: CLINICAL PHARMACIST F/U NOTE STANDARD TITLE: PHARMACY MEDICATION MGT NOTE DATE OF NOTE: JUL 22, 2023@13:01 ENTRY DATE: JUL 22, 2023@13:01:36 AUTHOR: TIM GARNICA COSIGNER: URGENCY: STATUS: COMPLETED Program: Clinical Pharmacy Provider/Medication Management Speciality: Mental Health ATTENDED BY: [X] Patient [ ] Spouse/Caregiver LENGTH OF SESSION: 30minutes -=-=-=-=-=-=-=-=-=-=-=-=-=-=- =-=-=-=-=-==-=-=-=-=-=-=-=-=- =-=-=-=-=-=-=-=-=-=-=- Name: HUSSAIN FORDE : Feb ID: 63yo WHITE MALE -=-=-=-=-=-=-=-=-=-=-=-=-=-=- =-=-=-=-=-==-=-=-=-=-=-=-=-=- =-=-=-=-=-=Subjective- was last seen on [id number] with the following pharmacotherapeutic plan: [X] No changes [ ] Discontinue: [ ] Initiate: [ ] Change the following: Treating Dx(s): Delusional Disorder INTERIM HISTORY pt reports to be doing well. 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 discussed his medications therafter. states medication is working well. mentioned that there was some difficulty w/ obtaining his medication a couple of months ago d/t issues w/ procurement, of which is currently resolved. denies AH/VH, or any emergence of new side effects. disclosed no other issues or concerns at this time. Mood: good Sleep: good Apetite: andres Scott reports the following regarding medications: -N--Y- [ ][X] Adherence/Compliance [X][ ] Adverse Drug Reactions [X][ ] New OTC/Herbal/Supplement(s) SUBSTANCE USE ASSESSMENT [X] Denies All [ ] Nicotine - quit 4-5yrs ago, prior to 1 ppd [ ] Caffeine - stopped d/t heart issues [ ] Alcohol [ ] Cannabis [ ] Other Illicit Substances -=-=-=-=-=-=-=-=-=-=-=-=-=-=- =-=-=-=-=-==-=-=-=-=-=-=-=-=- =-=-=-=-=-=-Objective- Mental Status Exam Appearance: [X] Unremarkable [X] [...] ] Repetitive [X] Normal [ ] Impaired [ ] No evidence of thought disorder [ ] No overt psychosis Other cognitive problems: [ ] Denies Flashbacks [X] Cognition intact [X] Denies AH/VH [X] Logical and Linear [ ] Obsessions [ ] Paranoid/Delusions [X] Memory sufficient for interview [ ] Hallucinations: [ ] None [ ] Visuospatial [ ] Flashbacks: [ ] Attention [ ] Judgment [ ] Other: [ ] Abstraction Active problems - Computerized Problem List is the source for the followin. Bradycardia 2. Housing adequate 3. Asthma (SCT [id number]) 4. Irritable bowel syndrome with diarrhea 5. Obsessive compulsive disorder 6. Paranoid disorder 7. Schizophrenia 8. History of alcohol abuse 9. Atrial fibrillation and flutter (SNOMED CT [id number]) 10. Exercise Stress Test 11. ECHO 12. Obesity 13. Colonoscopy Screening 14. Housing instability due to imminent risk of homelessness 15. Delusional disorder 16. Tobacco dependence in remission ALLERGIES: Patient has answered NKA Active Outpatient [...] d/t cost associated w/ SILVA - risperidone ([phone]) [ ] Per Patient: Vitals: Ht: 70 in [177.8 cm] (09/08/2022 10:01) Wt: 247.6 lb [112.31 kg] (09/08/2022 10:01) BMI: 35.6 BP: 150/73 (04/13/2023 08:57) HR: 46 (04/13/2023 08:57) Labs: CHEM 7 TREND LAB CUMULATIVE SELECTED [...] 407 Estimated CrCl (based on IBW): ~105mL/min -=-=-=-=-=-=-=-=-=-=-=-=-=-=- =-=-=-=-=-==-=-=-=-=-=-=-=-=- =-=-=-=-=-=-=-=-=-=-=- ASSESSMENT The following review of all active psychotropic and COMBER OPERATOR-active agents is to ensure pharmacotherapy is evaluated for safety and efficacy as they relate to behaviorial and physiological changes and outcomes Pt is stable on the current regimen and requires no changes at this time. Delusional Disorder - paliperidone 4.5mg daily PLAN 1. Pharmacotherapy [X] No changes [ ] Discontinue: [ ] Initiate: [ ] Change the followin. Labs/tests: n/a 3. Consult(s) or Coordination of care: n/a 4. Other: n/a Education was provided to the regarding the above medication(s) risks, benefits, and alternatives; adverse drug reactions; expectations; and instructions for use. Findings/Plan was discussed with the patient and/or caregiver(s) whom provided verbal acknowledgement that the findings/plan was understood. The following counseling was specifically provided: [ ] Lab tests reviewed with patient [X] Instruction for management/treatment and/or follow-up [X] Importance of compliance with chosen treatment options [X] Risk Factor Reduction [ ] Other: RTC Interval: every 12weeks Next Apt: [id number] Scott was provided advertising copywriter's contact information and instructed to contact advertising copywriter as needed for any changes to scheduling or concerns otherwise. is aware of actions to take if they feel unsafe, including calling the 's Crisis Line (#[phone]); calling 911; or going to the nearest urgent care or emergency room. The is also aware of how to contact the clinic should the require additional services prior to the next appointment. Time spent on chart review, session, and documentation: 30minutes /es/ Tim Garnica PharmD Clinical Pharmacist Practitioner Signed: 07/26/2023 14:35 TIM GARNICA [facility]
--- OUTSIDE RECORDS SUMMARY | 2024-01-25 13:07 | XMS_ITS | Encounter Summary ---
Author Name Department of [facility] [place] Organization [facility] [place] Address [address] [place] [address] Care Team Providers Care Livestock Farmers Name Role Phone DUNCAN COATES Primary Care [...] Patient's Relationship to Policy Beyer [employer] [facility] ([id number]) PRESCRIPT ION [facility] Aug 14, 2017 [id number] [phone] GAIL FORDE PATIENT [facility] Aug 14, 2017 [id number] [phone] GAIL FORDE PATIENT Selected Encounter This section includes the information on record at [place] for the Encounter. Date/Time Encounter Type Encounter Description Reason Provider Source Sep 30, 2023 08:30 AM OFFICE O/P EST LOW 20 MIN PODIATRY ICD-10-CM L60.3 Nail dystrophy ALEJANDRO ECHEVARRIA [place] Encounter Template Text not used by VA Assessments - Encounter Diagnoses This section includes the primary and secondary diagnoses documented for the Encounter. Date/Time Primary/Secondary Diagnosis Diagnosis Name Provider Source Sep 30, 2023 08:55 AM PRIMARY Nail dystrophy ALEJANDRO ECHEVARRIA [place] Sep 30, 2023 08:55 AM SECONDARY Corns and callosities ALEJANDRO ECHEVARRIA [place] Sep 30, 2023 08:55 AM SECONDARY Pain in left foot ALEJANDRO ECHEVARRIA [place] Sep 30, 2023 08:55 AM SECONDARY Pain in left toe(s) ALEJANDRO ECHEVARRIA [place] Sep 30, 2023 08:55 AM SECONDARY Pain in right foot ALEJANDRO ECHEVARRIA [place] Sep 30, 2023 08:55 AM SECONDARY Pain in right toe(s) ALEJANDRO ECHEVARRIA [place] Plan of Treatment: Future Appointments (+ 6 months) and Future Tests (+/- 45 days) The Plan of Treatment section includes future care activities for the patient [facility] [place] [facility] This section includes future appointments and future orders which are active, pending or scheduled. Future Appointments This section includes appointments that were scheduled to occur 6 months from the date of the Encounter, up to a maximum of 20 appointments. The data comes from all [place] treatment facilities. Appointment Date/Time Appointment Type Appointme nt Facility Name Oct 21, 2023 01:30 PM AMBULATORY - PSYCHIATRY [facility] Jan 20, 2024 01:30 PM AMBULATORY - PSYCHIATRY [facility] Feb 24, 2024 08:30 AM AMBULATORY - MEDICINE [facility] Social History: Smoking Status (Most current) and Tobacco Use (All prior to encounter date) This section includes the most current, and the historical, smoking and tobacco- related health factors from the [place] facility where the Encounter took place. Current Smoking Status This section includes the most current smoking, or tobacco-related health factor, from the [place] facility where the Encounter took place. Date/Time Current Smoking Status Comment Anthony ity Sep 09, 2023 10:30 AM MD-TOBACCO FORMER USER [place] Tobacco Use History This section includes a history of the smoking, or tobacco-related health factors, that were collected on or before the date of the Encounter. The data comes from the [place] facility where the Encounter took place. Date/Time Smoking Status/Tobacco Use Comment F acility Sep 09, 2023 10:30 AM MD-TOBACCO QUIT 5 TO < 15 YRS [place] Advance Directives: All historical and current Section [...] 03, 2020 ADVANCE DIRECTIVE DISCUSSION TIKI DUKES [place] Encounter Notes: All associated encounter notes This section contains the clinical notes associated to the Encounter. Date/Time Encounter Note(s) Provider Source Sep 30, 2023 07:23 AM PODIATRY NOTE: LOCAL TITLE: PODIATRY NOTE STANDARD TITLE: PODIATRY NOTE DATE OF NOTE: SEP 30, 2023@07:23 ENTRY DATE: SEP 30, 2023@07:23:16 AUTHOR: ALEJANDRO ECHEVARRIA EXP COSIGNER: URGENCY: STATUS: COMPLETED NOTE: HAS RECEIVED BOTH COVID VACCINE DOSES + 3 BOOSTERS AT [facility] LAST SEEN: 01/13/2023 (PATIENT CANCELLED 06/09/2023) S: Pt. is a 63 yo alert WDWN CAUC MALE who IS SEEN for CONTINUED podiatric examination & CARE for treatment of a presenting complaint of painful THICK ingrown toenailS & plantar hypekeratosis. Patient has been referred by: DR. STRICKLAND as his other physicians are in [place] and would like to be seen here for podiatry as well. Location of symptoms are: NAILS 1-2-3-4-5 BILATERAL AND PLANTAR 1ST, 2ND & 5TH MET HEADS RT FOOT. Onset of symptoms has been several weeks due to this being a recurrent condition that has been exacerbating over the past few days. Duration of symptoms is intermittently with periods of exacerbation and remission HE HAS BEEN UTILIZING HIS CUSTOM ORTHOSES REGULARLY. Description of symptoms is of an aching-burning nature WITH PAIN LEVEL 2-3/10 PRIOR TO TREATMENT & 0/10 AFTER. Contributing factors are: shoes and increased activity. PMH: Active problems - Computerized Problem List is the source for the following: *NOTE: REVIEWED ABOVE, NOTING NON-CONTRIBUTORY TO THE CC *NOTE: REVIEWED ABOVE NOTING NO CHANGES SINCE PREVIOUS VISIT *NOTE: PLEASE SEE PROBLEM LIST TEMPLATE FOR COMPLETE LIST NEEDED. Family History: Non-contributory Social History: N/A *NOTE: DENIES ANY RECENT CHANGES IN MEDS UPON QUESTIONING TODAY-SEE RECONCILIATION PERFOMED THIS DATE BELOW TOBACCO USE = NONE Allergies:Patient has answered NKA Previous Surgery/Hospitalization: N/A TO THE CC HEIGHT:204.8 lb [92.90 kg] (09/08/2021 10:06) WEIGHT:70 in [177.8 cm] (09/08/2021 10:06) REVIEW OF SYSTEMS: DEFERRED BEING NON-CONTRIBUTORY TO THE CC & I HAVE REVIEWED THE PCP NOTES & PMH WELL. O: DERMATOLOGICAL: Exam reveals skin color, TEMP & text to be WNL. There is absence of hair noted. Nails are thickened yellow-brown discolored and displaying flakiness, crumbling, sub-ungual debris and rubor in the affected nail grooves. The affected nails are 1-2-3-4-5 bilat. There are superficial painful hyperkeratotic lesions noted at this time located at the following sites: PLANTAR MET HEADS 1-2-5 BILATERAL. There are no rashes, ulcers, indurations or nodules noted. VASCULAR: Exam reveals DP & PT pulses to be +2 equal & symmetrical bilateral. CFT is < 3 sec x 10. There are no superficial varices noted and there is no edema noted. MUSCULOSKELETAL: Exam reveals muscle strength and tone to be equal & symmetrical bilaterally & diminished for an individual of this age and present physical- medical condition. There is pain free ROM at all joints distal to and including the ankle. THERE IS AN ASYMPTOMATIC HAV LEFT FOOT. NEUROLOGICAL: Exam reveals S/D, vibratory, light touch & proprioception sensations to be equal & symmetrical bilaterally & WNL for an individual of this age and present physical-medical status. Protective sensation utilizing a Lesage-Vishal lOg monofilament is 10/10 bilateral. BIOMECHANICAL: Exam is deferred at this time as BEING non-contributory to the cc . A: Clinical Impression is painful onychocryptic clinically mycotic dystrophic nails 1-2-3-4-5 BILATERAL & PLANTAR HYPERKERATOSIS SUB MET HEADS 1-2-5 RT in the presence of PAIN. P: Treatment consists of debridement-reduction of all nails via manual & electric means with excision of the offending nail borders and thinning of the nail plates to the point of imminent bleeding. Additional treatment consists of surgical PARING-debridement of all hyperkeratosis utilizing sharp dissection WITH A STERILE # 10 SCALPEL. Padding includes the following: PINK INTERDIGITAL FOAM BETWEEN HALLUX AND 2ND TOE BILATERAL. All care rendered without complications & the patient is progressing well after podiatric care this date and will be scheduled for periodic podiatric care in an attempt to prevent future complications. Treatment by a non-professional could be extremely hazardous to the patient's wellbeing due to the underlying medical conditions. Return to Clinic: 24 Weeks DISCUSSED HIS WORK AND GOING TO [place] LATER THIS YEAR *DISCUSSED NEW PROTOCOLS AND CALLED REJI TODAY FOR RESCHEDULING I DISCUSSED THE FINDINGS & PLAN WITH PATIENT (UNCHANGED SINCE PREVIOUS VISIT) & PATIENT AGREES AND UNDERSTANDS PLAN Medication Reconciliation: PERFORMED TODAY - SEE BELOW. Outpatient: Has the patient been taking medications as documented in the EMLR? YES: The patient has been taking medications as documented in the EMLR. Essential Medication List for Review used to complete this medication reconciliation. INCLUDED IN THIS LIST: Alphabetical list of active outpatient prescriptions dispensed from this MD (local) and dispensed from another MD or [facility] facility (remote) as well as inpatient orders [...] Remote Allergy/ADR Data available for this patient [facility] [place] [facility] No Known Allergies Med Recon NoGlossary (Tool #1) INCLUDED IN THIS LIST: Alphabetical list of active outpatient prescriptions dispensed from this MD (local) and dispensed from another MD or [facility] facility (remote) as well as inpatient orders (local pending and active), local clinic medications, locally documented non-VA medications, and local prescriptions that have or been discontinued in the past 90 days. Non-VA Meds Last Documented On: Sep 08, 2022 NOTE The display of VA prescriptions dispensed from another MD or [facility] facility (remote) is limited to active outpatient prescription entries matched to National Drug File at the originating site and may not include some items such as investigational drugs, compounds, etc. NOT INCLUDED IN THIS LIST: Medications self-entered by the patient into personal health records (i.e. [facility]) are NOT included in this list. Non-VA medications documented outside this MD, remote inpatient orders (regardless of status) and remote clinic medications are NOT included in this list. The patient and provider must always discuss medications the patient is taking, regardless of where the medication was dispensed or obtained. Non-VA ACETAMINOPHEN 500MG TAB TAKE ONE TABLET BY MOUTH THREE TIMES DAILY NEEDED Non-VA medication not recommended by VA provider. Medication prescribed by Non-VA provider. OUTPT FLUTICASONE PROP 50MCG 120D NASAL INHL (Status = ) INSTILL 1 SPRAY INTO EACH NOSTRIL ONCE DAILY NEEDED FOR NASAL IRRITATION/INFLAMMATION Rx# [id number] Last Released: 04/13/23 Qty/Days Supply: Rx Expiration Date: 07/12/23 Refills Remainin Indication: FOR NASAL IRRITATION/INFLAMMATION OUTPT LORATADINE 10MG TAB (Status = ) TAKE ONE TABLET BY MOUTH ONCE DAILY NEEDED FOR ALLERGY Rx# [id number] Last Released: 04/13/23 Qty/Days Supply: Rx Expiration Date: 07/12/23 Refills Remainin Indication: FOR ALLERGY Non-VA METOPROLOL TARTRATE 50MG TAB TAKE ONE TABLET BY MOUTH TWICE DAILY Non-VA medication not recommended by VA provider. Medication prescribed by Non-VA provider. 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
--- OUTSIDE RECORDS SUMMARY | 2024-01-25 13:07 | XMS_ITS ---
Author Name [facility] [place] Address [address] [place] [address] Care Team Providers Care Builder'S Labourer Name Role Phone DUNCAN COATES Primary Care [...] Patient's Relationship to Policy Beyer [facility] ([id number]) PRESCRIPT ION [facility] Aug 14, 2017 [id number] [phone] GAIL FORDE PATIENT [facility] Aug 14, 2017 [id number] [phone] GAIL FORDE PATIENT Selected Encounter This section includes the information on record at [place] for the Encounter. Date/Time Encounter Type Encounter Description Reason Provider Source Oct 21, 2023 01:30 PM MTMS BY PHARM ADDL 15 [facility] - IND ICD-10-CM F20.9 Schizophrenia, unspecified LUDY GARNICA Encounter Template Text not used by VA Assessments - Encounter Diagnoses This section includes the primary and secondary diagnoses documented for the Encounter. Date/Time Primary/Secondary Diagnosis Diagnosis Name Provider Source Oct 21, 2023 04:00 PM PRIMARY Schizophrenia, unspecified RICHA GARNICA [facility] [place] [facility] Oct 21, 2023 04:00 PM SECONDARY Paranoid schizophrenia RICHA [facility]ARN[facility] Plan of Treatment: Future Appointments (+ 6 months) and Future Tests (+/- 45 days) The Plan of Treatment section includes future care activities for the patient from all [place] [facility]. This section includes future appointments and future orders which are active, pending or scheduled. Future Appointments This section includes appointments that were scheduled to occur 6 months from the date of the Encounter, up to a maximum of 20 appointments. The data comes from all [place] treatment facilities. Appointment Date/Time Appointment Type Appointme nt Facility Name Jan 20, 2024 01:30 PM [facility] Feb 24, 2024 08:30 AM AMBULATORY - MEDICINE [facility] Social History: Smoking Status (Most current) and Tobacco Use (All prior to encounter date) This section includes the most current, and the historical, smoking and tobacco- related health factors from the [place] facility where the Encounter took place. Current Smoking Status This section includes the most current smoking, or tobacco-related health factor, from the [place] facility where the Encounter took place. Date/Time Current Smoking Status Comment [facility] Jul 26, 2022 01:30 PM VA-TOBACCO [facility] Tobacco Use History This section includes a history of the smoking, or tobacco-related health factors, that were collected on or before the date of the Encounter. The data comes from the [place] facility where the Encounter took place. Date/Time Smoking Status/Tobac co Use Comment Facility Jul 26, 2022 01:30 PM VA-TOBACCO QUIT 1 TO < 5 YRS [facility] [place] [facility] Jul 20, 2021 01:30 PM VA-TOBACCO FORMER USER [facility] [place] [facility] Jul 20, 2021 01:30 PM VA-TOBACCO QUIT 1 TO < 5 YRS [facility] [place] [facility] Jul 28, 2020 01:45 PM VA-TOBACCO FORMER USER [facility] [place] [facility] Jul 28, 2020 01:45 PM VA-TOBACCO QUIT 5 TO < 15 YRS [facility] [place] [facility] Jun 04, 2019 03:15 PM VA-TOBACCO [facility] [place] [facility] Jun 04, 2019 03:15 PM VA-TOBACCO QUIT 1 TO < 5 YRS [place] [facility] [place] [facility] Jun 08, 2018 12:43 PM VA-TOBACCO USE > 15 LESS THAN 30 YEARS [facility] Jun 08, 2018 12:43 PM VA-TOBACCO USE ADVICE [facility]ARTHATRN [facility] Jun 08, 2018 12:43 PM VA-TOBACCO 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 FINANCIAL NO [facility] SIDDHARTHATRN [facility] Jun 08, 2018 12:43 PM VA-TOBACCO USE MED NO [facility] Jun 08, 2018 12:43 PM VA-TOBACCO USE WI 30 MIN OF WAKEUP [facility] SIDDHARTHATRN [facility] Jun 08, 2018 12:43 PM VA-TOBACCO USER EVERY DAY [facility] S[facility]ARTHATRN [facility] May 03, 2017 12:58 PM QUIT TOBACCO USE IN PAST YEAR [facility] Oct 19, 2016 01:18 PM CURRENT SMOKER [facility] Oct 19, 2016 01:18 PM V1-PT DECLINES REF TO TOBACCO CESS PRGM [facility] Oct 19, 2016 01:18 PM V1-PT THINKING ABOUT QUIT TOBACCO USE [facility] S[facility]RN [facility] Oct 19, 2016 01:18 PM V1-TOBACCO CESS MEDS NOT PRESCRIBED not ready [facility] [place] [facility] Mar 15, 2016 02:30 PM V1-PT NOT INTERESTED IN QUIT TOBACCO USE [facility] [place] [facility] Oct 16, 2015 08:02 AM V1-PT NOT INTERESTED IN QUIT TOBACCO USE [facility] [place] [facility] Apr 21, 2015 01:01 PM V1-PT NOT INTERESTED IN QUIT TOBACCO USE [facility] [place] [place] [facility] Sep 26, 2014 01:04 PM CURRENT SMOKER 1 pk every 2 days of cigarettes. [facility] Sep 26, 2014 01:04 PM V1-PT NOT INTERESTED IN QUIT TOBACCO USE [facility] SIDDHARTHAN [facility] July 06, 2013 12:51 PM CURRENT SMOKER less than a pack of cigarettes. [facility] July 06, 2013 12:51 PM V1-PT DECLINES TOBACCO CESSATION MEDS [facility] S[facility]DHARTHAN [facility] July 06, 2013 12:51 PM V1-PT THINKING ABOUT QUIT TOBACCO USE [facility] Mar 28, 2012 12:45 PM CURRENT SMOKER 1/2 PACK A DAY [facility] Mar 28, 2012 12:45 PM V1-PT DECLINES REF TO TOBACCO CESS PRGM [facility] Mar 28, 2012 12:45 PM V1-PT DECLINES TOBACCO CESSATION MEDS [facility] S[facility]DH[facility] Mar 28, 2012 12:45 PM V1-PT THINKING ABOUT QUIT TOBACCO USE [facility] Feb 28, 2009 02:26 PM CURRENT SMOKER 1/2 ppd [facility] Feb 28, 2009 02:26 PM V1-PT DECLINES TOBACCO CESSATION MEDS [facility] Feb 28, 2009 02:26 PM V1-PT THINKING ABOUT QUIT TOBACCO USE [facility] Feb 29, 2008 03:31 PM CURRENT SMOKER 7 cigs per day [facility] Feb 29, 2008 03:31 PM V1-PT DECLINES TOBACCO CESSATION MEDS [facility] Feb 29, 2008 03:31 PM V1-PT THINKING ABOUT QUIT TOBACCO USE [facility] Feb 08, 2007 12:18 PM V1-PT DECLINES TOBACCO CESSATION MEDS [facility] Feb 08, 2007 12:18 PM V1-PT NOT INTERESTED IN QUIT TOBACCO USE [facility] Feb 08, 2006 09:10 AM CURRENT SMOKER 6 cigarettes/day [facility] Advance Directives: All historical and current Section Date Range: From patient's date of to the date document was created. This section includes ALL of a patient's completed or amended VA Advance and Rescinded Directives. The entries below indicate that a directive exists for the patient, but an actual copy is not included with this document. The data comes from all [place] facilities. Date Advance Directives Provider Source Nov 03, 2020 ADVANCE DIRECTIVE DISCUSSION TIKI DUKES WORTH Encounter Notes: All associated encounter notes This section contains the clinical notes associated to the Encounter. Date/Time Encounter Note(s) Provider Source Oct 21, 2023 01:33 PM PHARMACY MEDICATION MGT NOTE: LOCAL TITLE: CLINICAL PHARMACIST F/U NOTE STANDARD TITLE: PHARMACY MEDICATION MGT NOTE DATE OF NOTE: OCT 21, 2023@13:33 ENTRY DATE: OCT 21, 2023@13:33:29 AUTHOR: TIM GARNICA COSIGNER: URGENCY: STATUS: COMPLETED Program: Clinical Pharmacy Provider/Medication Management Speciality: Mental Health ATTENDED BY: [X] Patient [ ] Spouse/Caregiver LENGTH OF SESSION: 30minutes -=-=-=-=-=-=-=-=-=-=-=-=-=-=- =-=-=-=-=-==-=-=-=-=-=-=-=-=- =-=-=-=-=-=-=-=-=-=-=- Name: MAURISIOHUSSAIN LIZANDRO : Feb ID: 63yo WHITE MALE -=-=-=-=-=-=-=-=-=-=-=-=-=-=- =-=-=-=-=-==-=-=-=-=-=-=-=-=- =-=-=-=-=-=Subjective- Parker was last seen on [id number] with the following pharmacotherapeutic plan: [X] No changes [ ] Discontinue: [ ] Initiate: [ ] Change the following: Treating Dx(s): Delusional Disorder INTERIM HISTORY pt reports to be doing well. reports medications are running low. refill placed for pt to pick-up at [facility]. mentions plan for him to do a stress test and EKG soon. 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 he otherwise endorsed having a good summer and sticking to his routine w/ work and tasks at home. reviewed paliperidone. denies any new side effects. denies AH/VH. noted that he recently had PCP appt here, but did not obtain labs. reports plan that he has an appt w/ his non-va PCP soon and may get labs then for monitoring. disclosed no other issues or concerns at this time. Mood: good Sleep: good Apetite: andres reports the following regarding medications: -N--Y- [ [...] Bradycardia 2. Housing adequate 3. Asthma (SCT [id number]) 4. Irritable bowel syndrome with diarrhea 5. Obsessive compulsive disorder 6. Paranoid disorder 7. Schizophrenia 8. History of alcohol abuse 9. Atrial fibrillation (SNOMED CT 81643370) 10. Exercise Stress Test 11. ECHO 12. [...] d/t cost associated w/ SILVA - risperidone () [ ] Per Patient: Vitals: Ht: 70 in [177.8 cm] (09/09/2023 10:43) Wt: 241.6 lb [109.59 kg] (09/09/2023 10:43) BMI: 34.7 BP: 145/78 (09/09/2023 10:43) HR: 50 (09/09/2023 10:43) Labs: CHEM 7 TREND LAB CUMULATIVE SELECTED [...] following review of all active psychotropic and CUSTOMER SERVICE SUPERVISOR-active agents is to ensure pharmacotherapy is evaluated for safety and efficacy as they relate to behaviorial and physiological changes and outcomes Pt is stable on the current regimen and requires no changes at this time. Delusional Disorder - paliperidone 4.5mg daily PLAN 1. Pharmacotherapy [X] No changes [ ] Discontinue: [ ] Initiate: [ ] Change the followin. Labs/tests: due for A1C/LFPs; june f/u w/ non-va PCP soon; should he not obtain labs then, will obtains labs prior to next appt 3. Consult(s) or Coordination of care: n/a [...] Other: RTC Interval: every 12weeks Next Apt: [id number]@1330 was provided conventional mortgage underwriter's contact information and instructed to contact conventional mortgage underwriter as needed for any changes to scheduling or concerns otherwise. is aware of actions to take if they feel unsafe, including calling the 's Crisis Line (#[phone]); calling 911; or going to the nearest urgent care or emergency room. The is also aware of how to contact the clinic should the require additional services prior to the next appointment. Time spent on chart review, session, and documentation: 30minutes /es/ Tim Garnica PharmD Clinical Pharmacist Practitioner Signed: 10/21/2023 16:14 TIM GARNICA [facility]
--- OUTSIDE RECORDS SUMMARY | 2024-01-25 13:08 | XMS_ITS | Encounter Summary ---
Author Name [facility] [place] Address [address] [place] [address] Care Team Providers Care Block Trader Name Role Phone DUNCAN COATES Primary Care [...] Patient's Relationship to Policy Beyer [employer] [facility] ([id number]) PRESCRIPT ION [facility] Aug 14, 2017 [id number] GAIL FORDE PATIENT [facility] Aug 14, 2017 [id number] [phone] GAIL FORDE PATIENT Selected Encounter This section includes the information on record at [place] for the Encounter. Date/Time Encounter Type Encounter Description Reason Provider Source Nov 01, 2023 01:55 PM HC PRO PHONE CALL 5-10 MIN TELEPHONE/[facility] ICD-10-CM Z59.9 Problem related to housing and economic circumstances, unsp RANULFO SCHMITT IHBrina Encounter Template Text not used by VA Assessments - Encounter Diagnoses This section includes the primary and secondary diagnoses documented for the Encounter. Date/Time Primary/Secondary Diagnosis Diagnosis Name Provider Source Nov 01, 2023 01:55 PM PRIMARY Problem related to housing and economic circumstances, unsp LYNDSEY SCHMITT M [place] Plan of Treatment: Future Appointments (+ 6 months) and Future Tests (+/- 45 days) The Plan of Treatment section includes future care activities for the patient from all [place] [facility]. This section includes future appointments and future orders which are active, pending or scheduled. Future Appointments This section includes appointments that were scheduled to occur 6 months from the date of the Encounter, up to a maximum of 20 appointments. The data comes from all [facility] facilities. Appointment Date/Time Appointment Type Appointme nt Facility Name Jan 20, 2024 01:30 PM AMBULATORY - PSYCHIATRY [facility] Feb 24, 2024 08:30 AM AMBULATORY - MEDICINE [facility] Apr 20, 2024 01:00 PM AMBULATORY PSYCHIATRY [facility] Social History: Smoking Status (Most current) and Tobacco Use (All prior to encounter date) This section includes the most current, and the historical, smoking and tobacco- related health factors from the [place] facility where the Encounter took place. Current Smoking Status This section includes the most current smoking, or tobacco-related health factor, from the [place] facility where the Encounter took place. Date/Time Current Smoking Status Comment Facil ity Sep 09, 2023 10:30 AM [facility] < 15 YRS [place] Tobacco Use History This section includes a history of the smoking, or tobacco-related health factors, that were collected on or before the date of the Encounter. The data comes from the [place] facility where the Encounter took place. Date/Time Smoking Status/Tobacco Use Comment F acility Sep 09, 2023 10:30 AM [facility] 5 TO < 15 YRS [place] Advance Directives: All historical and current Section Date Range: From patient's date of to the date document was created. This section includes ALL of a patient's completed or amended [place] Advance and Rescinded Directives. The entries below indicate that a directive exists for the patient, but an actual copy is not included with this document. The data comes from all [place] facilities. Date Advance Directives Provider Source Nov 03, 2020 ADVANCE DIRECTIVE DISCUSSION TIKI DUKES [place] Encounter Notes: All associated encounter notes This section contains the clinical notes associated to the Encounter. Date/Time Encounter Note(s) Provider Source Nov 01, 2023 01:55 PM HOMELESS PROGRAM T ELEPHONE ENCOUNTER NOTE: LOCAL TITLE: [id number] CONTACT STANDARD TITLE: HOMELESS PROGRAM TELEPHONE ENCOUNTER NOTE DATE OF NOTE: NOV 01, 2023@13:55 ENTRY DATE: NOV 03, 2023@15:17:13 AUTHOR: FRANKLIN SCHMITT EXP COSIGNER: URGENCY: STATUS: COMPLETED [id number] CONTACT Has ADDENDA CLICK HERE TO BEGIN Telephone contact with Nichols Nichols identified by (select two): Full Name, SSN Length of contact:2 minutes Case management stage:Prep for discharge Diagnosis Addressed:z59.9 Subject of call:(click one or more) Description of contact:Nichols calls SW to see if there has been any new information. SW explains that there has not, T/W reached out to [employer] who had contacted his landlord but had not received return communication. acknowledge and asked that this underwriter solicitation director keep him informed. SW promises that I will in fact keep him informed. Notable changes in mental status:Some increased anxiety Any clinical indications of increased risk? No If yes, CSSRS was completed on this date Next Steps:Follow up with Biju Mueller /li/ Franklin Schmitt LCSW [facility] Property Handler Signed: 11/03/2023 15:20 11/01/2023 ADDENDUM STATUS: COMPLETED calls SW back and explains that he just spoke to his landlord and the landlord wants Biju to call her right now. VIJI acknowledges this and takes the number that is provided to TW. /li/ Franklin Schmitt LCSW [facility] Property Handler Signed: 11/03/2023 15:22 FRANKLIN SCHMITT
--- OUTSIDE RECORDS SUMMARY | 2024-01-25 13:09 | XMS_ITS ---
Author Name [facility] [place] [facility] [place] Address [address] [place] [address] Care Team Providers Care Storage Architect Name Role Phone DUNCAN COATES Primary Care [...] Patient's Relationship to Policy Beyer [employer] ([id number]) PRESCRIPT ION GIC Aug 14, 2017 [id number] GAIL FORDE PATIENT [facility] CE ORGANIZ [facility] Aug 14, 2017 [id number] [phone] GAIL FORDE PATIENT Selected Encounter This section includes the information on record at [place] for the Encounter. Date/Time Encounter Type Encounter Description Reason Pro vider Source Dec 19, 2023 09:30 AM Outpatient Encounter [facility] Encounter Template Text not used by [place] Plan of Treatment: Future Appointments (+ 6 [...] 20 appointments. The data comes from all [place] treatment facilities. Appointment Date/Time Appointment Type Appointme nt Facility Name Jan 20, 2024 01:30 PM AM[place]ULATORY [place] [facility] [place] [facility] Feb 24, 2024 08:30 AM AMBULATORY - MEDICINE [facility] Apr 20, 2024 01:00 PM AMBULATORY - [place]RY [place] [facility] Social History: Smoking Status (Most current) and Tobacco Use (All prior to encounter date) This section includes the most current, and the historical, smoking and tobacco- related health factors from the [place] facility where the Encounter took place. Current Smoking Status This section includes the most current smoking, or tobacco-related health factor, from the [place] facility where the Encounter took place. Date/Time Current Smoking Status Comment [facility] Jul 26, 2022 01:30 PM VA-TOBACCO QUIT 1 TO < 5 YRS [place] [facility] [facility] Tobacco Use History This section includes a history of the smoking, or tobacco-related health factors, that were collected on or before the date of the Encounter. The data comes from the [place] facility where the Encounter took place. Date/Time Smoking Status/Tobac co Use Comment Facility Jul 26, 2022 01:30 PM VA-TOBACCO QUIT 1 TO < 5 YRS [place] [facility] [place] [facility] Jul 20, 2021 01:30 PM VA-TOBACCO FORMER USER [place] [facility] [place] [facility] Jul 20, 2021 01:30 PM VA-TOBACCO QUIT 1 TO < 5 YRS [place] [facility] [place] [facility] Jul 28, 2020 01:45 PM VA-TOBACCO FORMER USER [place] [facility] [place] [facility] Jul 28, 2020 01:45 PM VA-TOBACCO QUIT 5 TO < 15 YRS [place] [facility] [place] [facility] Jun 04, 2019 03:15 PM VA-TOBACCO FORMER USER [place] [facility] [place] [facility] Jun 04, 2019 03:15 PM VA-TOBACCO QUIT 1 TO < 5 YRS [place] [facility] [place] [facility] Jun 08, 2018 12:43 PM VA-TOBACCO USE > 15 LESS THAN 30 YEARS [place] 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 [facility] Jun 08, 2018 12:43 PM VA-TOBACCO USE MED NO [facility] Jun 08, 2018 12:43 PM VA-TOBACCO USE WI 30 MIN OF WAKEUP [facility] Jun 08, 2018 12:43 PM VA-TOBACCO USER EVERY DAY [facility] May 03, 2017 12:58 PM QUIT TOBACCO USE IN PAST YEAR [facility] Oct 19, 2016 01:18 PM CURRENT SMOKER [facility] Oct 19, 2016 01:18 PM V1-PT DECLINES REF TO TOBACCO CESS PRGM [facility] Oct 19, 2016 01:18 PM V1-PT THINKING ABOUT QUIT TOBACCO USE [facility] Oct 19, 2016 01:18 PM V1-TOBACCO CESS MEDS NOT PRESCRIBED not ready [facility] Mar 15, 2016 02:30 PM V1-PT NOT INTERESTED IN QUIT TOBACCO USE [facility] Oct 16, 2015 08:02 AM V1-PT NOT INTERESTED IN QUIT TOBACCO USE [facility] Apr 21, 2015 01:01 PM V1-PT NOT INTERESTED IN QUIT TOBACCO USE [facility] Sep 26, 2014 01:04 PM CURRENT SMOKER 1 pk every 2 days of cigarettes. [facility] Sep 26, 2014 01:04 PM V1-PT NOT INTERESTED IN QUIT TOBACCO USE [facility] July 06, 2013 12:51 PM CURRENT SMOKER less than a pack of cigarettes. [facility] July 06, 2013 12:51 PM V1-PT DECLINES TOBACCO CESSATION MEDS [facility] July 06, 2013 12:51 PM V1-PT THINKING ABOUT QUIT [facility]BACCO [facility] Mar 28, 2012 12:45 PM CURRENT SMOKER 1/2 PACK A DAY [facility] Mar 28, 2012 12:45 PM V1-PT DECLINES REF TO TOBACCO CESS PRGM [facility] Mar 28, 2012 12:45 PM V1-PT DECLINES TOBACCO CESSATION MEDS [facility] Mar 28, 2012 12:45 PM V1-PT THINKING ABOUT QUIT TOBACCO USE [facility] Feb 28, 2009 02:26 PM CURRENT SMOKER 1/2 ppd [facility] Feb 28, 2009 02:26 PM V1-PT DECLINES TOBACCO CESSATION MEDS [facility] Feb 28, 2009 02:26 PM V1-PT THINKING ABOUT QUIT TOBACCO USE [facility] Feb 29, 2008 03:31 PM CURRENT SMOKER 7 cigs per day [facility] Feb 29, 2008 03:31 PM V1-PT DECLINES TOBACCO CESSATION MEDS [facility] Feb 29, 2008 03:31 PM V1-PT THINKING ABOUT QUIT TOBACCO USE [facility] Feb 08, 2007 12:18 PM V1-PT DECLINES TOBACCO CESSATION MEDS [facility] Feb 08, 2007 12:18 PM V1-PT NOT INTERESTED IN QUIT TOBACCO USE [facility] Feb 08, 2006 09:10 AM CURRENT SMOKER 6 cigarettes/day [facility] Advance Directives: All historical and current Section Date Range: From patient's date of to the date document was created. This section includes ALL of a patient's completed or amended [place] Advance and Rescinded Directives. The entries below indicate that a directive exists for the patient, but an actual copy is not included with this document. The data comes from all [facility]. Date Advance Directives Provider Source Nov 03, 2020 ADVANCE DIRECTIVE DISCUSSION TIKI DUKES Encounter Notes: All associated encounter notes This section contains the clinical notes associated to the Encounter. Date/Time Encounter Note(s) Provider Source Dec 19, 2023 09:31 AM SOCIAL WORK NOTE: LOCAL TITLE: [facility] DISCHARGE STANDARD TITLE: SOCIAL WORK NOTE DATE OF NOTE: DEC 19, 2023@09:31 ENTRY DATE: DEC 19, 2023@09:31:55 AUTHOR: FRANKLIN SCHMITT COSIGNER: URGENCY: STATUS: COMPLETED Marcella is being discharged from the [facility] program on this date: Dec Marcella is graduating from [facility] case management and will retain a Section 8 voucher Reason for graduation: Marcella has met their goals and no longer has a need for this program. Marcella has demostrated an ability to access supports as needed. Summary of participation in the program, including barriers encountered/goals met while in the program: Marcella came to this program from the [facility] housing after its closing. He holds a job and thrives within his routine. With the assistance of his Mother whom he has an extremely close ramirez with he was able to build a rapport with T/W that allowed him to reach out whenever he needed support. He has cultivated a strong community in his apartment complex with his neighbors and continues to work. He recently was found to be over income by his Vouchering program and was closed by [employer], promting him to because anxious. Hussain was able to explain this to T/W his concerns which SW was able to then explain the the PHA so that Hussain could have a more extensive conversation with the [facility]. Hussain is in agreement with giving up his voucher and Graduating the [facility] program at this time. He has strong supports through his mother and sister. Within the [place] he has a good connection with his psychiatrist as well as his PCP. Marcella is current with rent/bills for at least 6 months:Yes Marcella is in agreement with the plan to discharge:Yes Marcella has a Hx of suicidal ideation/behavior:Yes If yes, how has this been addressed? Marcella has in the past had SI when extremely overwhelmed and with the addition of alcohol. He has not consumed ETOH in several years per his and his mother's report and works closely with his psychiatrist. Current provider contacts/referrals made:Marcella is current with all necessary providers. Marcella has been informed that they may contact the [facility] program for assistance at any time should the need arise at [phone]. is aware that they must recertify with the [facility] on an annual basis and will contact the [facility] program for assistance if needed. [place] has been provided with the number for the National Crisis line 988, press 1 for [place] crisis line. [facility] discharge letter has been sent the [place]. Lead CM/Plating Foreman has approved this discharge HOMES entry completed /es/ Franklin BILLSW [facility] Utility Appraiser Signed: 12/19/2023 09:40 Receipt Acknowledged By: 12/19/2023 09:47 /es/ SADIE Rosen, STARTER CUP POWDER [facility] [facility] Utility Appraiser 12/19/2023 11:04 /es/ GALDINO ERICKSON [facility] Plating Foreman FRANKLIN SCHMITT
--- OUTSIDE RECORDS SUMMARY | 2024-01-25 13:09 | XMS_ITS ---
Author Name [facility] [place] Organization [place] Address [address] [place] [address] Care Team Providers Care Lawn Care Specialist Name Role Phone DUNCAN COATES Primary Care [...] Patient's Relationship to Policy Beyer [employer] ([id number]) PRESCRIPT ION GIC Aug 14, 2017 [id number] [phone] GAIL FORDE PATIENT [facility]GANIZ [facility] Aug 14, 2017 [id number] GAIL FORDE PATIENT Selected Encounter This section includes the information on record at [place] for the Encounter. Date/Time Encounter Type Encounter Description Reason Pro vider Source Nov 01, 2023 02:02 PM Outpatient Encounter TELEPHONE/[facility] IHE Encounter Template Text not used by [place] Plan of Treatment: Future Appointments (+ 6 [...] 20 appointments. The data comes from all [place] treatment facilities. Appointment Date/Time Appointment Type Appointme nt Facility Name Jan 20, 2024 01:30 PM AMBULATORY - PS[place]IATRY [place] [facility] Feb 24, 2024 08:30 AM AMBULATORY - MEDICINE [facility] Apr 20, 2024 01:00 PM AMBULATORY - PSYCHIATRY [place] [facility] Social History: Smoking Status (Most current) and Tobacco Use (All prior to encounter date) This section includes the most current, and the historical, smoking and tobacco- related health factors from the [place] facility where the Encounter took place. Current Smoking Status This section includes the most current smoking, or tobacco-related health factor, from the [place] facility where the Encounter took place. Date/Time Current Smoking Status Comment [facility] Jul 26, 2022 01:30 PM VA-TOBACCO QUIT 1 TO < 5 YRS [place] [facility] [place] [facility] Tobacco Use History This section includes a history of the smoking, or tobacco-related health factors, that were collected on or before the date of the Encounter. The data comes from the [place] facility where the Encounter took place. Date/Time Smoking Status/Tobac co Use Comment Facility Jul 26, 2022 01:30 PM VA-TOBACCO QUIT 1 TO < 5 YRS [place] [facility] [place] [facility] Jul 20, 2021 01:30 PM VA-TOBACCO FORMER USER [place] [facility] [place] [facility] Jul 20, 2021 01:30 PM VA-TOBACCO QUIT 1 TO < 5 YRS [place] [facility] [place] [facility] Jul 28, 2020 01:45 PM VA-TOBACCO FORMER USER [place] [facility] [place] [facility] Jul 28, 2020 01:45 PM VA-TOBACCO QUIT 5 TO < 15 YRS [place] [facility] [place] [facility] Jun 04, 2019 03:15 PM VA-TOBACCO FORMER USER [place] [facility] [place] [facility] Jun 04, 2019 03:15 PM VA-TOBACCO QUIT 1 TO < 5 YRS [place] [facility] [place] [facility] Jun 08, 2018 12:43 PM VA-TOBACCO USE > 15 LESS THAN 30 YEARS [place] [facility] [place] [facility] Jun 08, 2018 12:43 PM [facility]ACCO [facility] Jun 08, 2018 12:43 PM VA-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 [facility] Jun 08, 2018 12:43 PM VA-TOBACCO USE MED NO [facility] Jun 08, 2018 12:43 PM VA-TOBACCO USE WI 30 MIN OF WAKEUP [facility] Jun 08, 2018 12:43 PM VA-TOBACCO USER EVERY DAY [facility] May 03, 2017 12:58 PM QUIT TOBACCO USE IN PAST YEAR [facility] Oct 19, 2016 01:18 PM CURRENT SMOKER [facility] Oct 19, 2016 01:18 PM V1-PT DECLINES REF TO TOBACCO CESS PRGM [facility] Oct 19, 2016 01:18 PM V1-PT THINKING ABOUT QUIT TOBACCO USE [facility] Oct 19, 2016 01:18 PM V1-TOBACCO CESS MEDS NOT PRESCRIBED not ready [facility] Mar 15, 2016 02:30 PM V1-PT NOT INTERESTED IN QUIT TOBACCO USE [facility] Oct 16, 2015 08:02 AM V1-PT NOT INTERESTED IN QUIT TOBACCO USE [facility] Apr 21, 2015 01:01 PM V1-PT NOT INTERESTED IN QUIT TOBACCO USE [facility] Sep 26, 2014 01:04 PM CURRENT SMOKER 1 pk every 2 days of cigarettes. [facility] Sep 26, 2014 01:04 PM V1-PT NOT INTERESTED IN QUIT TOBACCO USE [facility] July 06, 2013 12:51 PM CURRENT SMOKER less than a pack of cigarettes. [facility] July 06, 2013 12:51 PM V1-PT DECLINES TOBACCO CESSATION MEDS [facility] July 06, 2013 12:51 PM V1-PT THINKING ABOUT QUIT [facility]AC[facility] Mar 28, 2012 12:45 PM CURRENT SMOKER 1/2 PACK A DAY [facility] Mar 28, 2012 12:45 PM V1-PT DECLINES REF TO TOBACCO CESS PRGM [facility] Mar 28, 2012 12:45 PM V1-PT DECLINES TOBACCO CESSATION MEDS [facility] Mar 28, 2012 12:45 PM V1-PT THINKING ABOUT QUIT TOBACCO USE [facility] Feb 28, 2009 02:26 PM CURRENT SMOKER 1/2 ppd [facility] Feb 28, 2009 02:26 PM V1-PT DECLINES TOBACCO CESSATION MEDS [facility] Feb 28, 2009 02:26 PM V1-PT THINKING ABOUT QUIT TOBACCO USE [facility] Feb 29, 2008 03:31 PM CURRENT SMOKER 7 cigs per day [facility] Feb 29, 2008 03:31 PM V1-PT DECLINES TOBACCO CESSATION MEDS [facility] Feb 29, 2008 03:31 PM V1-PT THINKING ABOUT QUIT TOBACCO USE [facility] Feb 08, 2007 12:18 PM V1-PT DECLINES TOBACCO CESSATION MEDS [facility] Feb 08, 2007 12:18 PM V1-PT NOT INTERESTED IN QUIT TOBACCO USE [facility] Feb 08, 2006 09:10 AM CURRENT SMOKER 6 cigarettes/day [facility] Advance Directives: All historical and current Section Date Range: From patient's date of to the date document was created. This section includes ALL of a patient's completed or amended [place] Advance and Rescinded Directives. The entries below indicate that a directive exists for the patient, but an actual copy is not included with this document. The data comes from all [facility]. Date Advance Directives Provider Source Nov 03, 2020 ADVANCE DIRECTIVE DISCUSSION TIKI DUKES Encounter Notes: All associated encounter notes This section contains the clinical notes associated to the Encounter. Date/Time Encounter Note(s) Provider Source Nov 01, 2023 02:02 PM MENTAL HEALTH COMM UNICATION NOTE: LOCAL TITLE: [facility] COLLATERAL CONTACT STANDARD TITLE: MENTAL HEALTH COMMUNICATION NOTE DATE OF NOTE: NOV 01, 2023@14:02 ENTRY DATE: NOV 03, 2023@15:30:36 AUTHOR: FRANKLIN SCHMITT COSIGNER: URGENCY: STATUS: COMPLETED [facility] COLL[facility]AL CONTACT Has ADDENDA [facility] COLLATERAL NOTE Time spent: 2 minutes Addressed the following (click all that apply): : Contacted the following (click all that apply): [facility] Collateral contact name, if applicable: Bijumoe Casas Name(s)/Agency:[facility] Phone/email: [phone] Brief description/tasks completed: Middleware Systems Architect left a message with the [facility] information and that of what the relayed to . Outcome/Next steps: /es/ Franklin Schmitt LCSW [facility] Bioprocessing Manufacturing Technician Signed: 11/03/2023 15:35 11/01/2023 ADDENDUM STATUS: COMPLETED Middleware Systems Architect received a return call from Biju Mueller. VIJI discussed with [facility] 's concerns with the word terminate in the letter he received and his reactions since then. Biju agrees with the mentally jarring nature of the word. He shares that they have not received a rent increase from the [facility] throughout his residing there and so he will try to call her now. /es/ Franklin Schmitt LCSW [facility] Bioprocessing Manufacturing Technician Signed: 11/03/2023 15:45 11/01/2023 ADDENDUM STATUS: COMPLETED VIJI receives another call from Mr. Mueller who explains that he spoke to the [facility]. He continues to say that they do have some optional affordable units coming up that can be offered to [place]. However his rent remains within 30% of his income and so the will be pulling his voucher as he is paying the entire rental amount. VIJI acknoweldges this. Mr. Mueller explains that he will contact [place] and give him the information as well. /es/ Franklin Schmitt LCSW [facility] Bioprocessing Manufacturing Technician Signed: 11/03/2023 15:47 FRANKLIN SCHMITT
--- OUTSIDE RECORDS SUMMARY | 2024-01-25 13:09 | XMS_ITS ---
Author Name [facility] [place] Address [address] [place] [id number] Care Team Providers Care Geotechnical Department Manager Name Role Phone DUNCAN COATES Primary Care [...] Patient's Relationship to Policy Beyer [employer] ([id number]) PRESCRIPT ION [facility] Aug 14, 2017 [id number] [phone] GAIL FORDE PATIENT [facility] ORGANIZ [facility] Aug 14, 2017 [id number] [phone] GAIL FORDE PATIENT Selected Encounter This section includes the information on record at [place] for the Encounter. Date/Time Encounter Type Encounter Description Reason Pro vider Source Dec 30, 2023 12:34 PM Outpatient Encounter MENTAL HEALTH [facility] IHE Encounter Template Text not used by [place] Plan of Treatment: Future Appointments (+ 6 [...] 20 appointments. The data comes from all [place] treatment facilities. Appointment Date/Time Appointment Type Appointme nt Facility Name Jan 20, 2024 01:30 PM AMBULATORY - PS[facility]CHIATRY [facility] [place] [facility] Feb 24, 2024 08:30 AM AMBULATORY - MEDICINE [facility] Apr 20, 2024 01:00 PM AMBULATORY - PSYCHIATRY [facility] [facility] Social History: Smoking Status (Most current) and Tobacco Use (All prior to encounter date) This section includes the most current, and the historical, smoking and tobacco- related health factors from the [place] facility where the Encounter took place. Current Smoking Status This section includes the most current smoking, or tobacco-related health factor, from the [place] facility where the Encounter took place. Date/Time Current Smoking Status Comment [facility] Jul 26, 2022 01:30 PM VA-TOBACCO FORMER USER [place] [facility] [facility] Tobacco Use History This section includes a history of the smoking, or tobacco-related health factors, that were collected on or before the date of the Encounter. The data comes from the [place] facility where the Encounter took place. Date/Time Smoking Status/Tobac co Use Comment Facility Jul 26, 2022 01:30 PM VA-TOBACCO QUIT 1 TO < 5 YRS [facility] [place] [facility] Jul 20, 2021 01:30 PM VA-TOBACCO FORMER USER [facility] [place] [facility] Jul 20, 2021 01:30 PM VA-TOBACCO QUIT 1 TO < 5 YRS [facility] [place] [facility] Jul 28, 2020 01:45 PM VA-TOBACCO FORMER USER [facility] [place] [facility] Jul 28, 2020 01:45 PM VA-TOBACCO QUIT 5 TO < 15 YRS [facility] [place] [facility] Jun 04, 2019 03:15 PM VA-TOBACCO FORMER USER [facility] [place] [facility] Jun 04, 2019 03:15 PM VA-TOBACCO QUIT 1 TO < 5 YRS [facility] [place] [facility] Jun 08, 2018 12:43 PM VA-TOBACCO USE > 15 LESS THAN 30 YEARS [facility] [place] [facility] Jun 08, 2018 12:43 PM VA-TOBACCO USE ADVICE [facility] Jun 08, 2018 12:43 PM VA-TOBACCO USE COURT MONITOR NO [facility] Jun 08, 2018 12:43 PM VA-TOBACCO USE MED NO [facility] Jun 08, 2018 12:43 PM VA-TOBACCO USE WI 30 MIN OF WAKEUP [facility] Jun 08, 2018 12:43 PM VA-TOBACCO USER EVERY DAY [facility] May 03, 2017 12:58 PM QUIT TOBACCO USE IN PAST YEAR [facility] Oct 19, 2016 01:18 PM CURRENT SMOKER [facility] Oct 19, 2016 01:18 PM V1-PT DECLINES REF TO TOBACCO CESS PRGM [facility] Oct 19, 2016 01:18 PM V1-PT THINKING ABOUT QUIT TOBACCO USE [facility] Oct 19, 2016 01:18 PM V1-TOBACCO CESS MEDS NOT PRESCRIBED not ready [facility] Mar 15, 2016 02:30 PM V1-PT NOT INTERESTED IN QUIT TOBACCO USE [facility] Oct 16, 2015 08:02 AM V1-PT NOT INTERESTED IN QUIT TOBACCO USE [facility] Apr 21, 2015 01:01 PM V1-PT NOT INTERESTED IN QUIT TOBACCO USE [facility] Sep 26, 2014 01:04 PM CURRENT SMOKER 1 pk every 2 days of cigarettes. [facility] Sep 26, 2014 01:04 PM V1-PT NOT INTERESTED IN QUIT TOBACCO USE [facility] July 06, 2013 12:51 PM CURRENT SMOKER less than a pack of cigarettes. [facility] July 06, 2013 12:51 PM V1-PT DECLINES TOBACCO CESSATION MEDS [facility] July 06, 2013 12:51 PM V1-PT THINKING ABOUT QUIT TOBACCO USE [facility] Mar 28, 2012 12:45 PM CURRENT SMOKER 1/2 PACK A DAY [facility] Mar 28, 2012 12:45 PM V1-PT DECLINES REF TO TOBACCO CESS PRGM [facility] Mar 28, 2012 12:45 PM V1-PT DECLINES TOBACCO CESSATION MEDS [facility] Mar 28, 2012 12:45 PM V1-PT THINKING ABOUT QUIT TOBACCO USE [facility] Feb 28, 2009 02:26 PM CURRENT SMOKER 1/2 ppd [facility] Feb 28, 2009 02:26 PM V1-PT DECLINES TOBACCO CESSATION MEDS [facility] Feb 28, 2009 02:26 PM V1-PT THINKING ABOUT QUIT TOBACCO USE [facility] Feb 29, 2008 03:31 PM CURRENT SMOKER 7 cigs per day [facility] Feb 29, 2008 03:31 PM V1-PT DECLINES TOBACCO CESSATION MEDS [facility] Feb 29, 2008 03:31 PM V1-PT THINKING ABOUT QUIT TOBACCO USE [facility] Feb 08, 2007 12:18 PM V1-PT DECLINES TOBACCO CESSATION MEDS [facility] Feb 08, 2007 12:18 PM V1-PT NOT INTERESTED IN QUIT TOBACCO USE [facility] Feb 08, 2006 09:10 AM CURRENT SMOKER 6 cigarettes/day [facility] Advance Directives: All historical and current Section Date Range: From patient's date of to the date document was created. This section includes ALL of a patient's completed or amended [place] Advance and Rescinded Directives. The entries below indicate that a directive exists for the patient, but an actual copy is not included with this document. The data comes from all [facility]. Date Advance Directives Provider Source Nov 03, 2020 ADVANCE DIRECTIVE DISCUSSION TIKI DUKES Encounter Notes: All associated encounter notes This section contains the clinical notes associated to the Encounter. 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 This quality analyst/technical writer did alert provider. /li/ TANYA PALOMO FRICKERTRON CHECKER Signed: 12/30/2023 12:38 Receipt Acknowledged By: 12/30/2023 13:55 /li/ Tim Garnica, ChaiD Clinical Pharmacist Practitioner TANYA PALOMO [facility]
--- OUTSIDE RECORDS SUMMARY | 2024-01-25 13:09 | XMS_ITS | Encounter Summary ---
Author Name [facility] [place] Address [address] [place] [id number] Care Team Providers Care Checkerer Hand Name Role Phone DUNCAN COATES Primary Care [...] Patient's Relationship to Policy Beyer [employer] ([id number]) PRESCRIPT ION [facility] Aug 14, 2017 [id number] [phone] GAIL FORDE PATIENT [facility] ORGANIZ [facility] Aug 14, 2017 [id number] [phone] GAIL FORDE PATIENT Selected Encounter This section includes the information on record at [place] for the Encounter. Date/Time Encounter Type Encounter Description Reason Provider Source Dec 14, 2023 11:22 AM OFF/OP EST JUNE X REQ PHY/QHP PRIMARY CARE/MEDICINE ICD-10-CM Z23 Encounter for immunization CELESTE MCKEON [facility] Encounter Template Text not used by VA Assessments - Encounter Diagnoses This section includes the primary and secondary diagnoses documented for the Encounter. Date/Time Primary/Secondary Diagnosis Diagnosis Name Provider Source Dec 14, 2023 11:24 AM PRIMARY Encounter for immunization SANDY MCKEON [place] Plan of Treatment: Future Appointments (+ 6 months) and Future Tests (+/- 45 days) The Plan of Treatment section includes future care activities for the patient from all [place] [facility]. This section includes future appointments and future orders which are active, pending or scheduled. Future Appointments This section includes appointments that were scheduled to occur 6 months from the date of the Encounter, up to a maximum of 20 appointments. The data comes from all [place] treatment facilities. Appointment Date/Time Appointment Type Appointme nt Facility Name Jan 20, 2024 01:30 PM AMBULATORY - PSYCHIATRY [facility] Feb 24, 2024 08:30 AM AMBULATORY - MEDICINE [facility] Apr 20, 2024 01:00 PM AMBULATORY PSYCHIATRY [facility] Immunizations: All administered on the encounter date This section contains immunizations associated to the Encounter. Immunization Series Date Issued Reaction Comments INFLUENZA, SPLIT VIRUS, TRIVALENT, PF Dec 13 024 Social History: Smoking Status (Most current) and Tobacco Use (All prior to encounter date) This section includes the most current, and the historical, smoking and tobacco- related health factors from the [place] facility where the Encounter took place. Current Smoking Status This section includes the most current smoking, or tobacco-related health factor, from the [place] facility where the Encounter took place. Date/Time Current Smoking Status Comment Facil ity Sep 09, 2023 10:30 AM [place]-TOBACCO FORMER USER [place] Tobacco Use History This section includes a history of the smoking, or tobacco-related health factors, that were collected on or before the date of the Encounter. The data comes from the [place] facility where the Encounter took place. Date/Time Smoking Status/Tobacco Use Comment F acility Sep 09, 2023 10:30 AM NC-TOBACCO QUIT 5 TO < 15 YRS [place] Advance Directives: All historical and current Section Date Range: From patient's date of to the date document was created. This section includes ALL of a patient's completed or amended [place] Advance and Rescinded Directives. The entries below indicate that a directive exists for the patient, but an actual copy is not included with this document. The data comes from all [place] facilities. Date Advance Directives Provider Source Nov 03, 2020 ADVANCE DIRECTIVE DISCUSSION TIKI DUKES [place] Encounter Notes: All associated encounter notes This section contains the clinical notes associated to the Encounter. Date/Time Encounter Note(s) Provider Source Dec 14, 2023 11:22 AM PREVENTIVE MEDICIN E NURSING NOTE: LOCAL TITLE: CLINICAL REMINDERS/NURSING STANDARD TITLE: PREVENTIVE MEDICINE NURSING NOTE DATE OF NOTE: DEC 14, 2023@11:22 ENTRY DATE: DEC 14, 2023@11:22:49 AUTHOR: SANDY MCKEON EXP COSIGNER: URGENCY: STATUS: COMPLETED Influenza Immunization: Influenza, Trivalent, Preservative Free (Fluarix-Syringe) Administered: INFLUENZA, SPLIT VIRUS, TRIVALENT, PF Date Administered: Dec 14, 2023 11:22 Pecan Cleaner: Elastifile Lot: [id number] Exp Date: Aug 13, 2024 [facility]: [id number] Admin Route/Site: INTRAMUSCULAR/RIGHT DELTOID Dosage: 0.5mL Vaccine Information Statement(s): INFLUENZA(FLU) VACC(INACTIVATED OR RECOMBINANT)VIS Sep 19, 2020 (ECUADOREAN) Order By: Policy Administered By: Sandy Mckeon The Influenza Vaccine Information Statement (VIS) was reviewed with the patient/caregiver which lists the benefits and risks of the vaccine and the risks of not receiving the Influenza vaccine. The patient/caregiver denied any prior severe reaction to this vaccine or its components or a severe allergic reaction, such as anaphylaxis, to any vaccine or any injectable therapy. The patient/caregiver gave verbal consent to receive the vaccine. /li/ SANDY MCKEON LPN LPN Signed: 12/14/2023 11:24 SANDY MCKEON [place]
--- OUTSIDE RECORDS SUMMARY | 2024-01-25 13:09 | XMS_ITS ---
Author Name [place] Address [address] [place] [address] Care Team Providers Care Projection Printer Name Role Phone DUNCAN COATES Primary Care [...] Patient's Relationship to Policy Beyer [employer] ([id number]) PRESCRIPT ION [facility] Aug 14, 2017 [id number] GAIL FORDE PATIENT [facility]GAN[facility] Aug 14, 2017 [id number] [phone] GAIL FORDE PATIENT Selected Encounter This section includes the information on record at [place] for the Encounter. Date/Time Encounter Type Encounter Description Reason Provider Source Jan 20, 2024 01:30 PM MTMS BY PHARM ADDL 15 MIN [facility] - IND ICD-10-CM F22 Delusional disorders LUDY GARNICA Encounter Template Text not used by VA Assessments - Encounter Diagnoses This section includes the primary and secondary diagnoses documented for the Encounter. Date/Time Primary/Secondary Diagnosis Diagnosis Name Provider Source Jan 22, 2024 08:55 PM PRIMARY Delusional disorders LUDY GARNICA ER DEYSI D [place] [facility] [facility] Plan of Treatment: Future Appointments (+ 6 months) and Future Tests (+/- 45 days) The Plan of Treatment section includes future care activities for the patient from all [place] [facility] [place]. This section includes future appointments and future orders which are active, pending or scheduled. Future Appointments This section includes appointments that were scheduled to occur 6 months from the date of the Encounter, up to a maximum of 20 appointments. The data comes from all [place] treatment facilities. Appointment Date/Time Appointment Type Appointme nt Facility Name Feb 24, 2024 08:30 AM AMBULATORY - MEDICINE [facility] Apr 20, 2024 01:00 PM [facility] [place] [facility] Social History: Smoking Status (Most current) and Tobacco Use (All prior to encounter date) This section includes the most current, and the historical, smoking and tobacco- related health factors from the [place] facility where the Encounter took place. Current Smoking Status This section includes the most current smoking, or tobacco-related health factor, from the [place] facility where the Encounter took place. Date/Time Current Smoking Status Comment [facility] Jul 26, 2022 01:30 PM VA-TOBACCO FOR[facility]ER [facility] [place] [facility] Tobacco Use History This section includes a history of the smoking, or tobacco-related health factors, that were collected on or before the date of the Encounter. The data comes from the [place] facility where the Encounter took place. Date/Time Smoking Status/Tobac co Use Comment Facility Jul 26, 2022 01:30 PM VA-TOBACCO QUIT 1 TO < 5 YRS [facility] [place] [facility] Jul 20, 2021 01:30 PM VA-TOBACCO FORMER USER [facility] [place] [facility] Jul 20, 2021 01:30 PM VA-TOBACCO QUIT 1 TO < 5 YRS [facility] [place] [facility] Jul 28, 2020 01:45 PM VA-TOBACCO FORMER USER [facility] [place] [facility] Jul 28, 2020 01:45 PM VA-TOBACCO QUIT 5 TO < 15 YRS [facility] [facility] Jun 04, 2019 03:15 PM VA-TOBACCO FORMER USER [facility] [place] [facility] Jun 04, 2019 03:15 PM VA-TOBACCO QUIT 1 TO < 5 YRS [place] [facility] [place] [facility] Jun 08, 2018 12:43 PM VA-TOBACCO USE > 15 LESS THAN 30 YEARS [facility] Jun 08, 2018 12:43 PM VA-TOBACCO USE ADVICE [facility] Jun 08, 2018 12:43 PM VA-TOBACCO USE BASIC SCIENCES DEAN NO [facility] Jun 08, 2018 12:43 PM VA-TOBACCO USE MED NO [facility] Jun 08, 2018 12:43 PM VA-TOBACCO USE WI 30 MIN OF WAKEUP [facility] Jun 08, 2018 12:43 PM VA-TOBACCO USER EVERY DAY [facility] May 03, 2017 12:58 PM QUIT TOBACCO USE IN PAST YEAR [facility] Oct 19, 2016 01:18 PM CURRENT SMOKER [facility] Oct 19, 2016 01:18 PM V1-PT DECLINES REF TO TOBACCO CESS PRGM [facility] Oct 19, 2016 01:18 PM V1-PT THINKING ABOUT QUIT TOBACCO USE [facility] [place] [facility] Oct 19, 2016 01:18 PM V1-TOBACCO CESS MEDS NOT PRESCRIBED not ready [facility] Mar 15, 2016 02:30 PM V1-PT NOT INTERESTED IN QUIT TOBACCO USE [facility] [place] [facility] Oct 16, 2015 08:02 AM V1-PT NOT INTERESTED IN QUIT TOBACCO USE [facility] [place] [facility] Apr 21, 2015 01:01 PM V1-PT NOT INTERESTED IN QUIT TOBACCO USE [facility] [place] [facility] Sep 26, 2014 01:04 PM CURRENT SMOKER 1 pk every 2 days of cigarettes. [facility] [place] [facility] Sep 26, 2014 01:04 PM V1-PT NOT INTERESTED IN QUIT TOBACCO USE [facility] [place] [facility] July 06, 2013 12:51 PM CURRENT SMOKER less than a pack of cigarettes. [facility] July 06, 2013 12:51 PM V1-PT DECLINES TOBACCO CESSATION MEDS [facility] July 06, 2013 12:51 PM V1-PT THINKING ABOUT QUIT TOBACCO USE [facility] Mar 28, 2012 12:45 PM CURRENT SMOKER 1/2 PACK A DAY [facility] Mar 28, 2012 12:45 PM V1-PT DECLINES REF TO TOBACCO CESS PRGM [facility] Mar 28, 2012 12:45 PM V1-PT DECLINES TOBACCO CESSATION MEDS [facility] Mar 28, 2012 12:45 PM V1-PT THINKING ABOUT QUIT TOBACCO USE [facility] Feb 28, 2009 02:26 PM CURRENT SMOKER 1/2 ppd [facility] Feb 28, 2009 02:26 PM V1-PT DECLINES TOBACCO CESSATION MEDS [facility] Feb 28, 2009 02:26 PM V1-PT THINKING ABOUT QUIT TOBACCO USE [facility] Feb 29, 2008 03:31 PM CURRENT SMOKER 7 cigs per day [facility] Feb 29, 2008 03:31 PM V1-PT DECLINES TOBACCO CESSATION MEDS [facility] Feb 29, 2008 03:31 PM V1-PT THINKING ABOUT QUIT TOBACCO USE [facility] Feb 08, 2007 12:18 PM V1-PT DECLINES TOBACCO CESSATION MEDS [facility] Feb 08, 2007 12:18 PM V1-PT NOT INTERESTED IN QUIT TOBACCO USE [facility] Feb 08, 2006 09:10 AM CURRENT SMOKER 6 cigarettes/day [facility] Advance Directives: All historical and current [...] 03, 2020 ADVANCE DIRECTIVE DISCUSSION TIKI DUKES [place] Encounter Notes: All associated encounter notes This section contains the clinical notes associated to the Encounter. Date/Time Encounter Note(s) Provider Source Jan 20, 2024 01:09 PM PHARMACY MEDICATION MGT NOTE: LOCAL TITLE: CLINICAL PHARMACIST F/U NOTE STANDARD TITLE: PHARMACY MEDICATION MGT NOTE DATE OF NOTE: JAN 20, 2024@13:09 ENTRY DATE: JAN 20, 2024@13:09:56 AUTHOR: TIM GARNICA COSIGNER: URGENCY: STATUS: COMPLETED Program: Clinical Pharmacy Provider/Medication Management Speciality: Mental Health ATTENDED BY: [X] Patient [ ] Spouse/Caregiver LENGTH OF SESSION: 30minutes -=-=-=-=-=-=-=-=-=-=-=-=-=-=- =-=-=-=-=-==-=-=-=-=-=-=-=-=- =-=-=-=-=-=-=-=-=-=-=- Name: MAURISIOHUSSAIN LIZANDRO : Feb ID: [id number] WHITE MALE -=-=-=-=-=-=-=-=-=-=-=-=-=-=- =-=-=-=-=-==-=-=-=-=-=-=-=-=- =-=-=-=-=-=Subjective- [place] was last seen on [id number] with the following pharmacotherapeutic plan: [X] No changes [ ] Discontinue: [ ] Initiate: [ ] Change the following: Treating Dx(s): Delusional Disorder INTERIM HISTORY pt reports to be doing well. reports that he enjoyed a trip to [place] for , but additionally reported sad news in that his uncle had during that time. support provided. he continues remain busy with work. medication reviewed. denies any side effects. denies AH/VH. med rec completed - he is followed by non-va PCP. disclosed no other issues or concerns at this time. Mood: good Sleep: good Apetite: great reports the following regarding medications: -N--Y- [ ][X] Adherence/Compliance [X][ ] Adverse Drug Reactions [X][ ] New OTC/Herbal/Supplement(s) SUBSTANCE USE ASSESSMENT [X] Denies All [ ] Nicotine - quit ~6yrs ago, prior to 1 ppd [ ] [...] Bradycardia 2. Housing adequate 3. Asthma (SCT [id number]) 4. Irritable bowel syndrome with diarrhea 5. Obsessive compulsive disorder 6. Paranoid disorder 7. Schizophrenia 8. History of alcohol abuse 9. Atrial fibrillation (SNOMED CT [id number]) 10. Exercise Stress Test 11. ECHO 12. Obesity 13. Colonoscopy Screening 14. Housing instability due to imminent risk of homelessness 15. Delusional disorder 16. Tobacco dependence in remission ALLERGIES: Patient has answered NKA Active Outpatient Medications (including Supplies): Active Outpatient Medications Status 1) PALIPERIDONE 1.5MG SA TAB TAKE THREE TABLETS BY MOUTH ONCE ACTIVE DAILY Indication: FOR SCHIZOPHRENIA Active Non-VA Medications Status 1) Non-VA ACETAMINOPHEN 500MG TAB 500MG BY MOUTH THREE TIMES ACTIVE DAILY NEEDED 2) Non-VA METOPROLOL TARTRATE 50MG TAB 50MG BY MOUTH TWICE ACTIVE DAILY 3 Total Medications Past psychiatric medications include the following: [X] Per CPRS: - paliperidone PO (2019-) - paliperidone SILVA () > transitioned to PO d/t cost associated w/ SILVA - risperidone ([id number]) [ ] Per Patient: Vitals: Ht: 70 [...] following review of all active psychotropic and ENGINEERING RECRUITER-active agents is to ensure pharmacotherapy is evaluated for safety and efficacy as they relate to behaviorial and physiological changes and outcomes Pt is stable on the current regimen and requires no changes at this time. Delusional Disorder - paliperidone 4.5mg daily PLAN 1. Pharmacotherapy [X] No changes [ ] Discontinue: [ ] Initiate: [ ] Change the followin. Labs/tests: followed by non-va PCP 3. Consult(s) or Coordination of care: n/a [...] Other: RTC Interval: every 12weeks Next Apt: [id number]@1300 was provided medical technical writer's contact information and instructed to contact medical technical writer as needed for any changes to scheduling or concerns otherwise. [place] is aware of actions to take if they feel unsafe, including calling the [place]'s Crisis Line (#[phone]); calling 911; or going to the nearest urgent care or emergency room. The is also aware of how to contact the clinic should the require additional services prior to the next appointment. Time spent on chart review, session, and documentation: 30minutes /es/ Tim Garnica PharmD Clinical Pharmacist Practitioner Signed: 01/22/2024 21:02 TIM GARNICA [place] [facility]
--- OUTSIDE RECORDS SUMMARY | 2024-01-25 13:09 | XMS_ITS | Continuity of Care Document ---
Author Organization [facility] [address] [facility] [address] [place] [address] Phone [phone] Care Team Providers Care Low Emission Automobile Designer Name Role Phone Marlys Meza Care Team Information Locomotive Crane Operator + [phone] Problems Active Problems Provider Date Paroxysmal atrial flutter Jordan Allen Onset: 01/26/2023 Sinus bradycardia Reynaldo Kearns M.D. Onset: 01/26/2023 Social History Type Date Description Comments Sex Unknown Lives With Alone Work Status Full-Time Employment Tobacco Use Start: Unknown End: Unknown Quit 2019 ETOH Use Denies alcohol use Tobacco Use Start: Unknown End: Unknown Patient is a former smoker Allergies and adverse reactions Description No Known Drug Allergies Medications Active Medications SIG Qnty Indications Ordering Provider Date Metoprolol Xifucauy29zt Tablets Take 1 Tablet By Mouth Twice A Day Rahul Oneal MD Paliperidone ER1.5mg Tablets ER 24HR 3 tabs by mouth every day Unknown Vital Signs Date Vital Result Comment 12/28/2023 1:46pm BP Systolic 110 mmHg BP Diastolic 80 mmHg Heart Rate 56 /min Height 70 inches 5'10 Weight 241.00 lb BMI (Body Mass Index) 34.6 kg/m2 Results Test Acquired Date Facility Test Result H/L Range Note Laboratory test finding 12/28/2023 [facility] Triiodothyronine (T3), Free 3.3 pg/mL 2.0-4.4 TSH+Free T4 12/28/2023 [facility] TSH 1.050 uIU/mL 0.450-4. 500 T4,Free(Direct) 1.40 ng/dL 0.82-1.7 7 TSH Rfx on Abnormal to Free T4 09/23/2023 [facility] TSH RFX On Abnormal To Free T4 0.269 uIU/mL Low 0.450-4. 500 T4,Free (Direct) 1.30 ng/dL 0.82-1.7 7 TSH+Free T4 06/22/2023 [facility] TSH 0.112 uIU/mL Low 0.450-4. 500 T4,Free(Direct) 1.37 ng/dL 0.82-1.7 7 Laboratory test finding 06/22/2023 [facility] Triiodothyronine (T3), Free 3.1 pg/mL 2.0-4.4 Laboratory test finding 01/26/2023 [facility] TSH <0.01 uIU/mL Low (0.4-4.2 ) Free T3 4.6 pg/mL (2.3-5.0 ) Free T4 1.72 ng/dL (0.70-1. 80) Thyrotropin Receptor AB 2.27 High 1 1 Reference range: 0.0 0 to 1.75 Unit: IU/[place] [address] Medical Devices Description No Information Available Encounters Type Date Location Provider Dx Diagnosis Office Visit 09/23/2023 2:15p Main Office Reynaldo Kearns M.D. E05.00 Thyrotoxicosis w diffuse goiter w/o thyrotoxic crisis E05.90 Thyrotoxicosis, unsp without thyrotoxic crisis or storm Assessments Date Code Description Provider 09/23/2023 E05.00 Graves' disease Reynaldo maguire M.D. 09/23/2023 E05.90 Hyperthyroidism Reynaldo maguire M.D. Plan of Treatment Future Appointment(s):* 04/11/2024 1:30 pm - Reynaldo Kearns M.D. at Main Office 09/23/2023 - Reynaldo Kearns M.D.* E05.00 Graves' disease * E05.90 Hyperthyroidism Functional Status Description No Information Available Mental Status Description No Information Available Referrals Description No Information Available
--- OUTSIDE RECORDS SUMMARY | 2024-01-25 13:09 | XMS_ITS | Encounter Summary ---
Author Name [facility] [place] [facility] [place] [facility] [place] Address [address] [place] [address] Care Team Providers Care Personnel Consultant Name Role Phone DUNCAN COATES Primary Care [...] Patient's Relationship to Policy Beyer [employer] ([id number]) PRESCRIPT ION [facility] Aug 14, 2017 [id number] [phone] GAIL FORDE PATIENT [facility] Aug 14, 2017 [id number] [phone] GAIL FORDE PATIENT Selected Encounter This section includes the information on record at [place] for the Encounter. Date/Time Encounter Type Encounter Description Reason Provider Source Dec 14, 2023 03:16 PM HC PRO PHONE CALL 5-10 MIN TELEPHONE/[facility] ICD-10-CM Z59.9 Problem related to housing and economic circumstances, unsp RANULFO SCHMITT IHBrina Encounter Template Text not used by VA Assessments - Encounter Diagnoses This section includes the primary and secondary diagnoses documented for the Encounter. Date/Time Primary/Secondary Diagnosis Diagnosis Name Provider Source Dec 14, 2023 03:16 PM PRIMARY Problem related to housing and economic circumstances, unsp LYNDSEY SCHMITT [facility] Plan of Treatment: Future Appointments (+ 6 months) and Future Tests (+/- 45 days) The Plan of Treatment section includes future care activities for the patient from all [place] [facility] This section includes future appointments and future orders which are active, pending or scheduled. Future Appointments This section includes appointments that were scheduled to occur 6 months from the date of the Encounter, up to a maximum of 20 appointments. The data comes from all [place] treatment facilities. Appointment Date/Time Appointment Type Appointme nt Facility Name Jan 20, 2024 01:30 PM AMBULATORY - [facility]RY [facility] Feb 24, 2024 08:30 AM AMBULATORY - MEDICINE [facility] Apr 20, 2024 01:00 PM AMBULATORY [facility]RY [facility] Social History: Smoking Status (Most current) and Tobacco Use (All prior to encounter date) This section includes the most current, and the historical, smoking and tobacco- related health factors from the [place] facility where the Encounter took place. Current Smoking Status This section includes the most current smoking, or tobacco-related health factor, from the [place] facility where the Encounter took place. Date/Time Current Smoking Status Comment Facil ity Sep 09, 2023 10:30 AM [place]-TOBACCO FORMER USER [facility] Tobacco Use History This section includes a history of the smoking, or tobacco-related health factors, that were collected on or before the date of the Encounter. The data comes from the [place] facility where the Encounter took place. Date/Time Smoking Status/Tobacco Use Comment F acility Sep 09, 2023 10:30 [facility] 15 Y[facility] Advance Directives: All historical and current Section Date Range: From patient's date of to the date document was created. This section includes ALL of a patient's completed or amended [place] Advance and Rescinded Directives. The entries below indicate that a directive exists for the patient, but an actual copy is not included with this document. The data comes from all [place] facilities. Date Advance Directives Provider Source Nov 03, 2020 ADVANCE DIRECTIVE DISCUSSION TIKI DUKES [facility] Encounter Notes: All associated encounter notes This section contains the clinical notes associated to the Encounter. Date/Time Encounter Note(s) Provider Source Dec 14, 2023 03:16 PM HOMELESS PROGRAM T ELEPHONE ENCOUNTER NOTE: LOCAL TITLE: [id number] CONTACT STANDARD TITLE: HOMELESS PROGRAM TELEPHONE ENCOUNTER NOTE DATE OF NOTE: DEC 14, 2023@15:16 ENTRY DATE: DEC 19, 2023@09:21:37 AUTHOR: FRANKLIN SCHMITT EXP COSIGNER: URGENCY: STATUS: COMPLETED CLICK HERE TO BEGIN Telephone contact with identified by (select two): Full Name, SSN Length of contact:5 minutes Case management stage:Prep for discharge Diagnosis Addressed:z59.9 Subject of call:(click one or more)mental status check/risk assessment, social support/combat isolation, housing Description of contact:VIJI called to check in on how things have been since incoming out of his voucher. reports things have been good, however there has been an increase in move ins and this has been causing some anxiety. He shares that he has a great community of neighbors there and he doesn't want this disrupted by loud or disrespectful people. VIJI acknowledges how frustrating having his peace disrupted can feel. VIJI asks if the landlord offered him a lower income unit as she had stated to MIKIE Mueller. confirms that she has not, nor has she raised the rent. VIJI explains to [place] that as he no longer has the voucher that VIJI is going to Graduate him from the program. acknowleges that he feels ok with this. VIJI goes on to say that what this means for him is that if something does come up that he can still call me for support, however I will not be meeting with him regularly or calling him to check in. [place] states he thinks that sounds good as long as he can reach out if his rent gets raised and he can't afford it any more. SW assures his that he absolutely can. Notable changes in mental status:wnl. Speech is more pressured then normal however SW believes this is due to the anxiety he feels around new neighbors, as this is when it was most noticable. Any clinical indications of increased risk? No If yes, CSSRS was completed on this date Next Steps:VIJI will send [place] a letter explaining what was discussed today and a certificate of graduation. /li/ Franklin BILLSW [facility] Risk Management Director Signed: 12/19/2023 09:30 FRANKLIN SCHMITT
== END 2024-01-23 09:02 | disposition home or self-care (01) ==
PROVIDERS: PCP Internal Medicine; Visit Provider Physician Assistant
DX: J06.9 Acute upper respiratory infection, unspecified (principal)

== ENCOUNTER 2024-01-23 08:33 | Outpatient (REF) | payer OTHER, SELFPAY ==
[2024-01-23 11:09] LABS: Influenza A PCR NEGATIVE (Negative); Influenza B PCR NEGATIVE (Negative); Resp Syncy Virus RNA Qual PCR NEGATIVE (Negative); SARS COV2 PCR INHOUSE POSITIVE (Negative)
--- OUTSIDE RECORDS SUMMARY | 2024-01-25 13:36 | XMS_ITS ---
Author Name [facility] [place] [facility] [place] Organization [facility] [place] Address [address] [place] [address] Care Team Providers Care Emergency Medical Tech Name Role Phone DUNCAN COATES Primary Care [...] Patient's Relationship to Policy Beyer [employer] ([id number]) PRESCRIPT ION [facility] Aug 14, 2017 [id number] GAIL FORDE PATIENT [facility] Aug 14, 2017 [id number] [phone] GAIL FORDE PATIENT Selected Encounter This section includes the information on record at [place] for the Encounter. Date/Time Encounter Type Encounter Description Reason Pro vider Source Apr 07, 2023 01:28 PM Outpatient Encounter TELEPHONE/[facility] IHE Encounter Template Text not used by [place] Plan of Treatment: Future Appointments (+ 6 [...] 20 appointments. The data comes from all [place] treatment facilities. Appointment Date/Time Appointment Type Appointme nt Facility Name Apr 13, 2023 08:30 AM [facility]ORY [facility]ICINE [facility] Apr 13, 2023 08:45 AM [facility] Apr 15, 2023 01:00 PM [facility] [place] [facility] May 17, 2023 09:00 AM [facility] [place] [facility] Jul 22, 2023 01:00 PM AMBULATORY [facility] [place] [facility] Sep 09, 2023 10:30 AM AM[facility]ULATORY [facility] [place] [facility] Sep 30, 2023 08:30 AM [facility] Social History: Smoking Status (Most current) and Tobacco Use (All prior to encounter date) This section includes the most current, and the historical, smoking and tobacco- related health factors from the [place] facility where the Encounter took place. Current Smoking Status This section includes the most current smoking, or tobacco-related health factor, from the [place] facility where the Encounter took place. Date/Time Current Smoking Status Comment [facility] Jul 26, 2022 01:30 PM VA-TOBACCO FORMER USER [place] [facility] [place] [facility] Tobacco Use History This section includes a history of the smoking, or tobacco-related health factors, that were collected on or before the date of the Encounter. The data comes from the [place] facility where the Encounter took place. Date/Time Smoking Status/Tobac co Use Comment Facility Jul 26, 2022 01:30 PM VA-TOBACCO QUIT 1 TO < 5 YRS [facility] [place] [facility] Jul 20, 2021 01:30 PM VA-TOBACCO FORMER USER [facility] [place] [facility] Jul 20, 2021 01:30 PM VA-TOBACCO QUIT 1 TO < 5 YRS [facility] [place] [facility] Jul 28, 2020 01:45 PM VA-TOBACCO FORMER USER [facility] [place] [facility] Jul 28, 2020 01:45 PM VA-TOBACCO QUIT 5 TO < 15 YRS [facility] [place] [facility] Jun 04, 2019 03:15 PM VA-TOBACCO FORMER USER [facility] [place] [facility] Jun 04, 2019 03:15 PM VA-TOBACCO QUIT 1 TO < [address] [facility] Jun 08, 2018 12:43 PM VA-TOBACCO USE > 15 LESS THAN [address] 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 Jun 08, 2018 12:43 PM VA-TOBACCO USER EVERY DAY [facility] May 03, 2017 12:58 PM QUIT TOBACCO USE IN PAST YEAR [place] [place] [facility] Oct 19, 2016 01:18 PM CURRENT SMOKER [facility] Oct 19, 2016 01:18 PM V1-PT DECLINES REF TO TOBACCO [facility] Oct 19, 2016 01:18 PM V1-PT THINKING ABOUT QUIT TOBACCO USE [facility] Oct 19, 2016 01:18 PM V1-TOBACCO CESS MEDS NOT PRESCRIBED not ready [facility]RN [facility] Mar 15, 2016 02:30 PM V1-PT NOT INTERESTED IN QUIT TOBACCO USE [facility] Oct 16, 2015 08:02 AM V1-PT NOT INTERESTED IN QUIT TOBACCO USE [facility] Apr 21, 2015 01:01 PM V1-PT NOT INTERESTED IN QUIT TOBACCO USE [facility] Sep 26, 2014 01:04 PM CURRENT SMOKER 1 pk every 2 days of cigarettes. [facility] Sep 26, 2014 01:04 PM V1-PT NOT INTERESTED IN QUIT TOBACCO USE [facility] July 06, 2013 12:51 PM CURRENT SMOKER less than a pack of cigarettes. [facility] July 06, 2013 12:51 PM V1-PT DECLINES TOBACCO CESSATION MEDS [facility] July 06, 2013 12:51 PM V1-PT THINKING ABOUT QUIT TOBACCO USE [facility] Mar 28, 2012 12:45 PM CURRENT SMOKER 1/2 PACK A DAY [facility] Mar 28, 2012 12:45 PM V1-PT DECLINES REF TO TOBACCO CESS PRGM [facility] Mar 28, 2012 12:45 PM V1-PT DECLINES TOBACCO CESSATION MEDS [facility] Mar 28, 2012 12:45 PM V1-PT THINKING ABOUT QUIT TOBACCO USE [facility] Feb 28, 2009 02:26 PM CURRENT SMOKER 1/2 ppd [facility] Feb 28, 2009 02:26 PM V1-PT DECLINES TOBACCO CESSATION MEDS [facility] Feb 28, 2009 02:26 PM V1-PT THINKING ABOUT QUIT TOBACCO USE [facility] Feb 29, 2008 03:31 PM CURRENT SMOKER 7 cigs per day [facility] Feb 29, 2008 03:31 PM V1-PT DECLINES TOBACCO CESSATION MEDS [facility] Feb 29, 2008 03:31 PM V1-PT THINKING ABOUT QUIT TOBACCO USE [facility] Feb 08, 2007 12:18 PM V1-PT DECLINES TOBACCO CESSATION MEDS [facility] Feb 08, 2007 12:18 PM V1-PT NOT INTERESTED IN QUIT TOBACCO USE [facility] Feb 08, 2006 09:10 AM CURRENT SMOKER 6 cigarettes/day [facility] Advance Directives: All historical and current Section Date Range: From patient's date of to the date document was created. This section includes ALL of a patient's completed or amended [place] Advance and Rescinded Directives. The entries below indicate that a directive exists for the patient, but an actual copy is not included with this document. The data comes from all [place] facilities. Date Advance Directives Provider Source Nov 03, 2020 ADVANCE DIRECTIVE DISCUSSION ERNSTTIKI Encounter Notes: All associated encounter notes This section contains the clinical notes associated to the Encounter. Date/Time Encounter Note(s) Provider Source Apr 07, 2023 01:28 PM HOMELESS PROGRAM T ELEPHONE ENCOUNTER NOTE: LOCAL TITLE: [id number] CONTACT STANDARD TITLE: HOMELESS PROGRAM TELEPHONE ENCOUNTER NOTE DATE OF NOTE: APR 07, 2023@13:28 ENTRY DATE: APR 07, 2023@13:28:57 AUTHOR: FRANKLIN SCHMITT EXP COSIGNER: URGENCY: STATUS: COMPLETED CLICK HERE TO BEGIN Attempted telephone contact to (CHECK ONE) Unable to leave a voicemail (noted as not in service or unable to accept calls) First attempt to contact patient /es/ Franklin Schmitt [facility] System Administration Manager Signed: 04/07/2023 13:29 FRANKLIN SCHMITT
--- OUTSIDE RECORDS SUMMARY | 2024-01-25 13:37 | XMS_ITS | Encounter Summary ---
Author Name [facility] [place] Organization [place] Address [address] [place] [address] Care Team Providers Care Brake Specialist Name Role Phone DUNCAN COATES Primary [...] Patient's Relationship to Policy Beyer [employer] ([id number]) PRESCRIPT ION [facility] Aug 14, 2017 [id number] GAIL FORDE PATIENT [facility] Aug 14, 2017 [id number] GAIL FORDE PATIENT Selected Encounter This section includes the information on record at [place] for the Encounter. Date/Time Encounter Type Encounter Description Reason Provider Source Mar 17, 2023 10:45 AM CASE MANAGEMENT HUD/VASH INDIV ICD-10-CM Z59.9 Problem related to housing and economic circumstances, RANULFO Perez Encounter Template Text not used by VA Assessments - Encounter Diagnoses This section includes the primary and secondary diagnoses documented for the Encounter. Date/Time Primary/Secondary Diagnosis Diagnosis Name Provider Source Apr 07, 2023 01:53 PM PRIMARY Problem related to housing and economic circumstances, unsp LYNDSEY SCHMITT Plan of Treatment: Future Appointments (+ 6 months) and Future Tests (+/- 45 days) The Plan of Treatment section includes future care activities for the patient from all [place] [facility]. This section includes [...] 13, 2023 08:30 AM [facility] Apr 13, 2023 08:45 AM [facility] Apr 15, 2023 01:00 PM [facility] May 17, 2023 09:00 AM [facility] Jul 22, 2023 01:00 PM [facility] Sep 09, 2023 10:30 AM AMBULATORY MEDICINE [facility] Advance Directives: All historical and current Section Date Range: From patient's date of to the date document was created. This section includes ALL of a patient's completed or amended [place] Advance and Rescinded Directives. The entries below indicate that a directive exists for the patient, but an actual copy is not included with this document. The data comes from all [facility]. Date Advance Directives Provider Source Nov 03, 2020 ADVANCE DIRECTIVE DISCUSSION TIKI DUKES [place] Encounter Notes: All associated encounter notes This section contains the clinical notes associated to the Encounter. Date/Time Encounter Note(s) Provider Source Mar 17, 2023 10:45 AM HOMELESS PROGRAM N OTE: LOCAL TITLE: [facility] PROGRESS NOTE STANDARD TITLE: HOMELESS PROGRAM NOTE DATE OF NOTE: MAR 17, 2023@10:45 ENTRY DATE: APR 07, 2023@13:31:42 AUTHOR: FRANKLIN SCHMITT EXP COSIGNER: URGENCY: STATUS: COMPLETED Location of visit: Office visit Case Management Stage: Pre-discharge Length of contact: 30 minutes Diagnosis addressed: z59.9 Description of contact: Doran brought in bank statements for this promotion writer to scan to [employer]. 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 Doran reports that he likes his knew psychiatrist and felt comfortable with him. He has not seen further copays come up. Doran shares that he likes his jaclyn crowder and has not had further trouble with the apartment. Mental status: wnl Primary goal: Obtain and maintain housing Objectives addressed: Housing PLAN/Next steps: Scan to [facility] for further instruction. /li/ Franklin Schmitt [facility] Towboat Pilot Signed: 04/07/2023 13:53 FRANKLIN SCHMITT [place]
--- OUTSIDE RECORDS SUMMARY | 2024-01-25 13:38 | XMS_ITS ---
Author Name [facility] [place] Address [address] [place] [address] Care Team Providers Care Ui Software Engineer Name Role Phone DUNCAN COATES Primary Care [...] Patient's Relationship to Policy Beyer [facility] ([id number]) PRESCRIPT ION GIC Aug 14, 2017 [id number] [phone] GAIL FORDE PATIENT [facility] Aug 14, 2017 [id number] [phone] GAIL FORDE PATIENT Selected Encounter This section includes the information on record at [place] for the Encounter. Date/Time Encounter Type Encounter Description Reason Provider Source Apr 15, 2023 01:00 PM MTMS BY PHARM ADDL 15 MIN [facility] - IND ICD-10-CM F20.9 Schizophrenia, unspecified LUDY GARNICA Encounter Template Text not used by [facility] Assessments - Encounter Diagnoses This section includes the primary and secondary diagnoses documented for the Encounter. Date/Time Primary/Secondary Diagnosis Diagnosis Name Provider Source Apr 15, 2023 01:09 PM PRIMARY Schizophrenia, unspecified RICHA GARNICA [facility] Apr 15, 2023 01:09 PM SECONDARY Paranoid schizophrenia RICHA [facility]ARN[facility] Plan of Treatment: Future Appointments (+ 6 months) and Future Tests (+/- 45 days) The Plan of Treatment section includes future care activities for the patient from all [place] [facility]. This section includes future appointments and future orders which are active, pending or scheduled. Future Appointments This section includes appointments that were scheduled to occur 6 months from the date of the Encounter, up to a maximum of 20 appointments. The data comes from all [place] treatment facilities. Appointment Date/Time Appointment Type Appointme nt Facility Name May 17, 2023 09:00 AM AMBULATORY - MEDICINE [facility] NTRL W[facility]N [facility] Jul 22, 2023 01:00 PM AMBULATORY [facility] Sep 09, 2023 10:30 AM AMBULATORY - MEDICINE [facility] [place] [facility] Sep 30, 2023 08:30 AM AM[facility]ULATORY - [facility]ICINE [facility] Social History: Smoking Status (Most current) and Tobacco Use (All prior to encounter date) This section includes the most current, and the historical, smoking and tobacco- related health factors from the [place] facility where the Encounter took place. Current Smoking Status This section includes the most current smoking, or tobacco-related health factor, from the [place] facility where the Encounter took place. Date/Time Current Smoking Status Comment Anthony weiner Jul 26, 2022 01:30 PM VA-TOBACCO [facility] Tobacco Use History This section includes a history of the smoking, or tobacco-related health factors, that were collected on or before the date of the Encounter. The data comes from the [place] facility where the Encounter took place. Date/Time Smoking Status/Tobac co Use Comment Facility Jul 26, 2022 01:30 PM VA-TOBACCO QUIT 1 TO < 5 YRS [facility] [place] [facility] Jul 20, 2021 01:30 PM VA-TOBACCO FORMER USER [facility] Jul 20, 2021 01:30 PM VA-TOBACCO QUIT 1 TO < 5 YRS [facility] [place] [place] [facility] Jul 28, 2020 01:45 PM VA-TOBACCO FORMER USER [facility] [place] [place] [facility] Jul 28, 2020 01:45 PM VA-TOBACCO QUIT 5 TO < 15 YRS [facility] [place] [place] [facility] Jun 04, 2019 03:15 PM VA-TOBACCO FORMER USER [place] [facility] [place] [facility] Jun 04, 2019 03:15 PM VA-TOBACCO QUIT 1 TO < 5 YRS [place] [facility] [place] [facility] Jun 08, 2018 12:43 PM VA-TOBACCO USE > 15 LESS THAN 30 YEARS [place] [facility] [place] [facility] Jun 08, 2018 12:43 PM VA-TOBACCO USE ADVICE [place] [facility] [place] [facility] Jun 08, 2018 12:43 PM VA-TOBACCO USE 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 CONDENSER ATTENDANT NO [place] [facility] [place] [facility] Jun 08, 2018 12:43 PM VA-TOBACCO USE MED NO [place] [facility] [place] [facility] Jun 08, 2018 12:43 PM VA-TOBACCO USE WI 30 MIN OF WAKEUP [place] [facility] [place] [facility] Jun 08, 2018 12:43 PM VA-TOBACCO USER EVERY DAY [place] [facility] [facility] May 03, 2017 12:58 PM QUIT TOBACCO USE IN PAST YEAR [place] [facility] [place] [facility] Oct 19, 2016 01:18 PM CURRENT SMOKER [facility] [place] [facility] Oct 19, 2016 01:18 PM V1-PT DECLINES REF TO TOBACCO CESS PRGM [place] [facility] [place] [facility] Oct 19, 2016 01:18 PM V1-PT THINKING ABOUT QUIT TOBACCO USE [facility] [place] [facility] Oct 19, 2016 01:18 PM V1-TOBACCO CESS MEDS NOT PRESCRIBED not ready [place] [facility] [place] [facility] Mar 15, 2016 02:30 PM V1-PT NOT INTERESTED IN QUIT TOBACCO USE [facility] [place] [facility] Oct 16, 2015 08:02 AM V1-PT NOT INTERESTED IN QUIT TOBACCO USE [facility] [place] [facility] Apr 21, 2015 01:01 PM V1-PT NOT INTERESTED IN QUIT TOBACCO USE [facility] Sep 26, 2014 01:04 PM CURRENT SMOKER 1 pk every 2 days of cigarettes. [facility] Sep 26, 2014 01:04 PM V1-PT NOT INTERESTED IN QUIT TOBACCO USE [facility] July 06, 2013 12:51 PM CURRENT SMOKER less than a pack of cigarettes. [facility] July 06, 2013 12:51 PM V1-PT DECLINES TOBACCO CESSATION MEDS [facility] July 06, 2013 12:51 PM V1-PT THINKING ABOUT QUIT TOBACCO USE [facility] Mar 28, 2012 12:45 PM CURRENT SMOKER 1/2 PACK A DAY [facility] Mar 28, 2012 12:45 PM V1-PT DECLINES REF TO TOBACCO CESS PRGM [facility] Mar 28, 2012 12:45 PM V1-PT DECLINES TOBACCO CESSATION MEDS [facility] Mar 28, 2012 12:45 PM V1-PT THINKING ABOUT QUIT TOBACCO USE [facility] Feb 28, 2009 02:26 PM CURRENT SMOKER 1/2 ppd [facility] Feb 28, 2009 02:26 PM V1-PT DECLINES TOBACCO CESSATION MEDS [facility] Feb 28, 2009 02:26 PM V1-PT THINKING ABOUT QUIT TOBACCO USE [facility] Feb 29, 2008 03:31 PM CURRENT SMOKER 7 cigs per day [facility] Feb 29, 2008 03:31 PM V1-PT DECLINES TOBACCO CESSATION MEDS [facility] Feb 29, 2008 03:31 PM V1-PT THINKING ABOUT QUIT TOBACCO USE [facility] Feb 08, 2007 12:18 PM V1-PT DECLINES TOBACCO CESSATION MEDS [facility] Feb 08, 2007 12:18 PM V1-PT NOT INTERESTED IN QUIT TOBACCO USE [facility] Feb 08, 2006 09:10 AM CURRENT SMOKER 6 cigarettes/day [place] [facility] Advance Directives: All historical and current Section Date Range: From patient's date of to the date document was created. This section includes ALL of a patient's completed or amended [place] Advance and Rescinded Directives. The entries below indicate that a directive exists for the patient, but an actual copy is not included with this document. The data comes from all [place] facilities. Date Advance Directives Provider Source Nov 03, 2020 ADVANCE DIRECTIVE DISCUSSION TIKI DUKES [place] Encounter Notes: All associated encounter notes This section contains the clinical notes associated to the Encounter. Date/Time Encounter Note(s) Provider Source Apr 15, 2023 01:01 PM PHARMACY MEDICATION MGT NOTE: LOCAL TITLE: CLINICAL PHARMACIST F/U NOTE STANDARD TITLE: PHARMACY MEDICATION MGT NOTE DATE OF NOTE: APR 15, 2023@13:01 ENTRY DATE: APR 15, 2023@13:01:50 AUTHOR: TIM GARNICA EXP COSIGNER: URGENCY: STATUS: COMPLETED Program: Clinical Pharmacy Provider/Medication Management Speciality: Mental Health ATTENDED BY: [X] Patient [ ] Spouse/Caregiver LENGTH OF SESSION: 30minutes -=-=-=-=-=-=-=-=-=-=-=-=-=-=- =-=-=-=-=-==-=-=-=-=-=-=-=-=- =-=-=-=-=-=-=-=-=-=-=- Name: HUSSAIN FORDE : Feb ID: 63yo WHITE MALE -=-=-=-=-=-=-=-=-=-=-=-=-=-=- =-=-=-=-=-==-=-=-=-=-=-=-=-=- =-=-=-=-=-=Subjective- Hitchcock was last seen on [id number] with the following pharmacotherapeutic plan: [X] No changes [ ] Discontinue: [ ] Initiate: [ ] Change the following: Treating Dx(s): Delusional Disorder INTERIM HISTORY pt today presents with face mask on, reporting that he possibly caught a cold from a coworker. mentioned that he had went to [facility] the otherday for a checkup; was provide antihistamines and a nosespray. otherwise expressed that he overall is feeling better. discussed work briefly, as there is expectation of his current boss retiring and a transition over to a new boss, but otherwise did not present any distress regarding this change. continues to endorse benefit and adherence from paliperidone. denies AH/VH. plans to go the the customer care suite after this appt to correct listed emergency contact's address. Mood: good Sleep: good Apetite: andres Naranjo reports the following regarding medications: -N--Y- [ [...] Bradycardia 2. Housing adequate 3. Asthma (SCT [id number]) 4. Irritable bowel syndrome with diarrhea 5. Obsessive compulsive disorder 6. Paranoid disorder 7. Schizophrenia 8. History of alcohol abuse 9. Atrial fibrillation and flutter (SNOMED CT [id number]) 10. Exercise Stress Test 11. ECHO 12. Obesity 13. Colonoscopy Screening 14. Housing instability due to imminent risk of homelessness 15. Delusional disorder 16. Tobacco dependence in remission ALLERGIES: Patient has answered NKA Active Outpatient Medications (including Supplies): Active Outpatient Medications Status 1) FLUTICASONE PROP 50MCG 120D NASAL INHL INSTILL 1 ACTIVE SPRAY INTO EACH NOSTRIL ONCE DAILY NEEDED FOR NASAL IRRITATION/INFLAMMATION 2) LORATADINE 10MG TAB TAKE ONE TABLET BY MOUTH ONCE ACTIVE DAILY NEEDED FOR ALLERGY 3) PALIPERIDONE 1.5MG SA TAB TAKE THREE TABLETS BY MOUTH ACTIVE ONCE DAILY Active Non-VA Medications Status 1) Non-VA ACETAMINOPHEN 500MG TAB 500MG BY MOUTH THREE ACTIVE TIMES DAILY NEEDED 2) Non-VA METOPROLOL TARTRATE 50MG TAB 50MG BY MOUTH ACTIVE TWICE DAILY 5 Total Medications Past psychiatric medications include the following: [X] Per CPRS: - paliperidone PO (2019-) - paliperidone SILVA () > transitioned to PO d/t cost associated w/ SILVA - risperidone (5815-2212) [ ] Per Patient: Vitals: Ht: 70 [...] following review of all active psychotropic and LAST TURNER-active agents is to ensure pharmacotherapy is evaluated [...] Other: RTC Interval: every 12weeks Next Apt: [id number]@1300 was provided job specification writer's contact information and instructed to contact job specification writer as needed for any changes to scheduling or concerns otherwise. is aware of actions to take if they feel unsafe, including calling the 's Crisis Line (#697); calling 911; or going to the nearest urgent care or emergency room. The is also aware of how to contact the clinic should the require additional services prior to the next appointment. Time spent on chart review, session, and documentation: 30minutes /es/ Tim Nelson. Kishan Garnica Clinical Pharmacist Practitioner Signed: 04/15/2023 13:29 TIM GARNICA [facility]
--- OUTSIDE RECORDS SUMMARY | 2024-01-25 13:39 | XMS_ITS | Encounter Summary ---
Author Name [facility] [place] Address [address] [place] [address] Care Team Providers Care Board Catcher Name Role Phone DUNCAN COATES Primary Care [...] Patient's Relationship to Policy Beyer [employer] ([id number]) PRESCRIPT ION [facility] Aug 14, 2017 [id number] GAIL FORDE PATIENT [facility] Aug 14, 2017 [id number] [phone] GAIL FORDE PATIENT Selected Encounter This section includes the information on record at [place] for the Encounter. Date/Time Encounter Type Encounter Description Reason Provider Source Oct 18, 2023 10:53 AM HC PRO PHONE CALL 5-10 MIN TELEPHONE/[facility] ICD-10-CM Z59.9 Problem related to housing and economic circumstances, unsp RANULFO SCHMITT IHBrina Encounter Template Text not used by VA Assessments - Encounter Diagnoses This section includes the primary and secondary diagnoses documented for the Encounter. Date/Time Primary/Secondary Diagnosis Diagnosis Name Provider Source Oct 18, 2023 10:53 AM PRIMARY Problem related to housing and economic circumstances, unsp KESHIA,LYNDSEY KAUFFMAN M [place] Plan of Treatment: Future Appointments (+ 6 months) and Future Tests (+/- 45 days) The Plan of Treatment section includes future care activities for the patient from all [place] [facility]. This section includes future appointments and future orders which are active, pending or scheduled. Future Appointments This section includes appointments that were scheduled to occur 6 months from the date of the Encounter, up to a maximum of 20 appointments. The data comes from all [facility]. Appointment Date/Time Appointment Type Appointme nt Facility Name Oct 21, 2023 01:30 PM AMBULATORY - PSYCHIATRY [facility] Jan 20, 2024 01:30 PM AMBULATORY PSYCHIATRY [facility] Feb 24, 2024 08:30 AM AMBULATORY - MEDICINE [facility] Social History: Smoking Status (Most current) and Tobacco Use (All prior to encounter date) This section includes the most current, and the historical, smoking and tobacco- related health factors from the [place] facility where the Encounter took place. Current Smoking Status This section includes the most current smoking, or tobacco-related health factor, from the [place] facility where the Encounter took place. Date/Time Current Smoking Status Comment Facil ity Sep 09, 2023 10:30 AM [facility] < 15 [facility] [place] Tobacco Use History This section includes a history of the smoking, or tobacco-related health factors, that were collected on or before the date of the Encounter. The data comes from the [place] facility where the Encounter took place. Date/Time Smoking Status/Tobacco Use Comment F acility Sep 09, 2023 10:30 AM [facility] TO < 15 YRS [place] Advance Directives: All historical and current Section Date Range: From patient's date of to the date document was created. This section includes ALL of a patient's completed or amended [place] Advance and Rescinded Directives. The entries below indicate that a directive exists for the patient, but an actual copy is not included with this document. The data comes from all [facility]. Date Advance Directives Provider Source Nov 03, 2020 ADVANCE DIRECTIVE DISCUSSION TIKI DUKES [place] Encounter Notes: All associated encounter notes This section contains the clinical notes associated to the Encounter. Date/Time Encounter Note(s) Provider Source Oct 18, 2023 10:53 AM HOMELESS PROGRAM T ELEPHONE ENCOUNTER NOTE: LOCAL TITLE: [id number] CONTACT STANDARD TITLE: HOMELESS PROGRAM TELEPHONE ENCOUNTER NOTE DATE OF NOTE: OCT 18, 2023@10:53 ENTRY DATE: OCT 27, 2023@12:21:18 AUTHOR: FRANKLIN SCHMITT EXP COSIGNER: URGENCY: STATUS: COMPLETED [id number] CONTACT Has ADDENDA CLICK HERE TO BEGIN Telephone contact with [place] identified by (select two): Full Name, SSN Length of contact:10 minutes Case management stage:Prep for discharge Diagnosis Addressed:z59.9 Subject of call:(click one or more) Description of contact: expresses concerns around receiving a letter saying his voucher was being terminated. SW explains that most likely this is due to his rent amount and his income but validates the scary ness of hearing something with the word terminated acknowledges understanding. SW will follow up and let know. Notable changes in mental status:wnl Any clinical indications of increased risk? No If yes, CSSRS was completed on this date Next Steps:SW will clarify with Biju Mueller /li/ Franklin Schmitt LCSW [facility] Auto Apprentice Mechanic Signed: 10/27/2023 12:41 10/19/2023 ADDENDUM STATUS: COMPLETED SW speaks to and verifies that as his voucher amount equals $900 which is 30% of his income and his rent is also $900 his is now paying his full rent. This would be why he received the letter saying his was not going to continue receiving a voucher. VIJI continues saying that Biju Mueller was going to double check with [place]'s landlord before taking any actions. [place] thanks VIJI for the information and acknowledges understanding. /li/ Franklin Schmitt [facility] Auto Apprentice Mechanic Signed: 10/27/2023 12:44 FRANKLIN SCHMITT
--- OUTSIDE RECORDS SUMMARY | 2024-01-25 13:39 | XMS_ITS | Encounter Summary ---
Author Name [facility] [place] [facility] [place] Organization [place] Address [address] [place] [address] Care Team Providers Care Aquacultural Worker Supervisor Name Role Phone DUNCAN COATES Primary Care [...] Patient's Relationship to Policy Beyer [employer] ([id number]) PRESCRIPT ION [facility] Aug 14, 2017 [id number] GAIL FORDE PATIENT [facility] Aug 14, 2017 [id number] [phone] GAIL FORDE PATIENT Selected Encounter This section includes the information on record at [place] for the Encounter. Date/Time Encounter Type Encounter Description Reason Provider Source Oct 27, 2023 08:25 AM HC PRO PHONE CALL 5-10 MIN TELEPHONE/[facility] ICD-10-CM Z59.9 Problem related to housing and economic circumstances, unsp RANULFO SCHMITT IHBrina Encounter Template Text not used by VA Assessments - Encounter Diagnoses This section includes the primary and secondary diagnoses documented for the Encounter. Date/Time Primary/Secondary Diagnosis Diagnosis Name Provider Source Oct 27, 2023 08:25 AM PRIMARY Problem related to housing and economic circumstances, unsp KESHIA,LYNDSEY [place] Plan of Treatment: Future Appointments (+ 6 months) and Future Tests (+/- 45 days) The Plan of Treatment section includes future care activities for the patient from all [place] [facility]. This section includes future appointments and future orders which are active, pending or scheduled. Future Appointments This section includes appointments that were scheduled to occur 6 months from the date of the Encounter, up to a maximum of 20 appointments. The data comes from all [place] treatment facilities. Appointment Date/Time Appointment Type Appointme nt Facility Name Jan 20, 2024 01:30 PM AMBULATORY [facility] Feb 24, 2024 08:30 AM AMBULATORY - MEDICINE [facility] Apr 20, 2024 01:00 PM AMBULATORY [facility]CHI[facility]RY [facility] Social History: Smoking Status (Most current) and Tobacco Use (All prior to encounter date) This section includes the most current, and the historical, smoking and tobacco- related health factors from the [place] facility where the Encounter took place. Current Smoking Status This section includes the most current smoking, or tobacco-related health factor, from the [place] facility where the Encounter took place. Date/Time Current Smoking Status Comment Facil ity Sep 09, 2023 10:30 AM [place]-TOBACCO FORMER USER [place] Tobacco Use History This section includes a history of the smoking, or tobacco-related health factors, that were collected on or before the date of the Encounter. The data comes from the [place] facility where the Encounter took place. Date/Time Smoking Status/Tobacco Use Comment F acility Sep 09, 2023 10:30 AM [facility] < 15 [facility] [place] Advance Directives: All historical and current Section Date Range: From patient's date of to the date document was created. This section includes ALL of a patient's completed or amended [place] Advance and Rescinded Directives. The entries below indicate that a directive exists for the patient, but an actual copy is not included with this document. The data comes from all [place] facilities. Date Advance Directives Provider Source Nov 03, 2020 ADVANCE DIRECTIVE DISCUSSION TIKI DUKES [place] Encounter Notes: All associated encounter notes This section contains the clinical notes associated to the Encounter. Date/Time Encounter Note(s) Provider Source Oct 27, 2023 08:25 AM HOMELESS PROGRAM T ELEPHONE ENCOUNTER NOTE: LOCAL TITLE: [id number] CONTACT STANDARD TITLE: HOMELESS PROGRAM TELEPHONE ENCOUNTER NOTE DATE OF NOTE: OCT 27, 2023@08:25 ENTRY DATE: OCT 27, 2023@11:56:42 AUTHOR: FRANKLIN SCHMITT EXP COSIGNER: URGENCY: STATUS: COMPLETED CLICK HERE TO BEGIN Telephone contact with identified by (select two): Full Name, SSN Length of contact:5 minutes Case management stage:Prep for discharge Diagnosis Addressed:z59.9 Subject of call:(click one or more)housing Description of contact:Simulation Developer called after he left a message for comic book writer with [facility]. SW explains that I have not heard anything from [employer] on the status of his voucher and assures him that if he is paying the same amount as the voucher allots him then the voucher would no longer cover the rent, this is not a bad thing. acknowleges and asks that comic book writer let him know if this comic book writer hears anything. Notable changes in mental status:wnl Any clinical indications of increased risk? No If yes, CSSRS was completed on this date Next Steps:VIJI will follow up with Biju Mueller. /li/ Franklin BILLSW [facility] Trim Die Maker Signed: 10/27/2023 12:15 FRANKLIN SCHMITT N[facility]
--- OUTSIDE RECORDS SUMMARY | 2024-01-25 13:40 | XMS_ITS | Continuity of Care Document ---
Author Organization [facility] [address] [place] [address] Phone [phone] Care Team Providers Care Framework Developer Name Role Phone Marlys Meza Care Team Information Administrative Judge + [phone] Problems Active Problems Provider Date Paroxysmal atrial [...] SIG Qnty Indications Ordering Provider Date Metoprolol [id number] Tablets Take 1 Tablet By Mouth Twice [...] 3.1 pg/mL 2.0-4.4 Laboratory test finding 01/26/2023 [facility] Reference [facility] TSH <0.01 uIU/mL Low (0.4-4.2 ) Free T3 4.6 pg/mL (2.3-5.0 ) Free T4 1.72 ng/dL (0.70-1. 80) Thyrotropin Receptor AB 2.27 High 1 1 Reference range: 0.0 0 to 1.75 Unit: IU/[place] [address] Medical Devices Description No Information Available Encounters [...]
== END 2024-01-23 08:34 | disposition home or self-care (01) ==
LOC: HO.LAB 08:33
PROVIDERS: PCP Internal Medicine; Visit Provider Physician Assistant
DX: J06.9 Acute upper respiratory infection, unspecified (principal)
CPT/HCPCS: 0241U

== ENCOUNTER 2024-09-27 13:13 | Outpatient (AMB) | payer OTHER, SELFPAY ==
[2024-09-27 13:15] VITALS: BP 122/76; PULSE 52; BMI 34.2
--- NOTE | 2024-09-27 13:15 | A.OFFVIS_ITS ---
Vital Signs 09/27/24 13:15 Height 5 ft 10 in Weight 238 lb 1.588 oz BMI 34.2 BP 122/76 Blood Pressure Location Lt brachial Position Sitting Pulse 52 Intake Visit Reasons: 1 yr follow up Intake Note: 1 year follow-up with ekg feeling good Hide Buyer Required: No Allergies No Known Allergies (No Known Allergies*) Allergy (Verified 01/23/24 08:40) HPI Comments Details: Jamir comes for follow-up. Patient has no cardiac symptoms. Denies any exertional chest pain or palpitations. Taking all his medications. He denies any shortness of breath, orthopnea, PND. Unfortunately he has been gaining some weight. He is working on it. Can all his medications. [facility] Medical History Sinus bradycardia Paroxysmal atrial flutter Surgical History History of surgery on arm Hx of colonoscopy Family History Father Colon cancer Mother No problems noted. Social History Housing: Apartment Alcohol intake: former Year quit: 2004 Patient Tobacco Use Status: Former Tobacco user Years Smoked: 40 +/- e-Cigarette/Vaping Use: Never Used service: Yes Current occupational status: employed and retired Cognitive needs: No Hearing needs: No Vision needs: No Review of Systems Const Denies chills, Denies fatigue, Denies fever(s), Denies frequent falls, Denies weakness, Denies weight gain and Denies weight loss ENT Denies dizziness Card Denies chest pain, Denies leg edema, Denies lightheadedness, Denies palpitations, Denies dyspnea, Denies dyspnea on exertion, Denies orthopnea and Denies other (loss of consciousness) Resp Denies cough, Denies dyspnea and Denies dyspnea on exertion GI Denies hematochezia and Denies change in stool character Musc Denies abnormal gait, Denies muscle weakness, Denies numbness, Denies radiating pain into limb and Denies tingling Neuro Denies abnormal gait, Denies dizziness, Denies frequent falls, Denies numbness, Denies tingling and Denies weakness Endo Denies fatigue and Denies palpitations Physical Exam Vital Signs: Last Vital Signs Pulse 52 09/27/24 13:15 BP 122/76 09/27/24 13:15 BMI result Body Mass Index 34.2 Const General: cooperative, healthy appearing, no acute distress, alert, awake and poor hygiene Nutritional Appearance: obese Orientation/consciousness: patient oriented x3 Neck Neck: Yes normal visual inspection and Yes no JVD Resp Effort & Inspection: normal respiratory effort, able to speak in complete sentences and not labored Auscultation: clear to auscultation bilaterally, no crackles, no rales, no rhonchi and no wheezes Cardio Palpation: normal PMI Rate: tachycardic Rhythm: regular rhythm Heart sounds: S1 normal heart sound present and S2 normal heart sound present Peripheral pulses: Peripheral pulses 2+ throughout GI Inspection: Yes normal to inspection Neuro General: patient oriented x3 Extrem General: Yes normal to inspection and No edema Office Procedures EKG Details: EKG shows sinus bradycardia with poor R-wave progression most likely lead placement 06169-[id number], Complete Assessment & Plan Assessment & Plan (1) Paroxysmal atrial flutter: Code(s): I48.92 - Unspecified atrial flutter Category: Medical Plan: Paroxysmal atrial flutter which has remained suppressed since ablation has done very well. Continue pursue rhythm control approach. Avoidance of stimulants was discussed. Continue metoprolol therapy. No indication for oral anticoagulation therapy at this point time. Continue aggressive blood pressure control which is currently well optimized. Stress mitigation strategies was discussed. Advised to participate in regular physical activity and weight loss program. He understands agrees. Will follow up in the clinic in 1 year's time, sooner p.r.n.. Thank you for allowing me to partake in his care Coding Level of Care Code Est Pt Level 4 (51596) Complex EM visit Add On G2211 Diagnoses Paroxysmal atrial flutter I48.92 CPT Codes EKG - CPT: 55447-[id number], Complete ([id number])
--- OUTSIDE RECORDS SUMMARY | 2024-09-27 14:07 | XMS_ITS | Continuity of Care Document ---
Author Organization [facility] [address] [place] [address] Phone [phone] Care Team Providers Care Belly Roller Name Role Phone Marlys Meza Care Team Information Shore Worker + [phone] Problems Active Problems Provider Date Paroxysmal atrial flutter Jordan Allen Onset: 01/26/2023 Sinus bradycardia Reynaldo Kearns M.D. Onset: 01/26/2023 Graves' disease Reynaldo Kearns M.D. Onset: 0 05/29/2024 Social History Type Date Description Comments Sex Male Sex Unknown Lives With Alone Work Status Full-Time Employment Tobacco Use Start: Unknown End: Unknown Quit 2019 ETOH Use Denies alcohol use Tobacco Use Start: Unknown End: Unknown Patient is a former smoker Allergies and adverse reactions Description No Known Drug Allergies Medications Active Medications SIG Qnty Indications Ordering Provider Date Metoprolol [id number] Tablets Take 1 Tablet By Mouth Twice A Day Rahul Oneal MD Paliperidone ER1.5mg Tablets ER 24HR 3 tabs by mouth every day Unknown Vital Signs Date Vital Result Comment 05/29/2024 2:27pm BP Systolic 120 mmHg BP Diastolic 60 mmHg Heart Rate 60 /min Height 70 inches 5'10 Weight 248.25 lb BMI (Body Mass Index) 35.6 kg/m2 Results Test Acquired Date Facility Test Result H/L Range Note TSH 05/29/2024 [facility] TSH 1.480 uIU/mL 0.450-4 .500 Thyroxine (T4) Free, Direct 05/29/2024 [facility] Thyroxine (T4) Free, Direct 1.20 ng/dL 0.82-1. 77 Triiodothyronine (T3), Free 12/28/2023 [facility] Triiodothyronine (T3), Free 3.3 pg/mL 2.0-4.4 TSH+Free T4 12/28/2023 [facility] TSH 1.050 uIU/mL 0.450-4 .500 T4,Free(Direct) 1.40 ng/dL 0.82-1. 77 TSH Rfx on Abnormal to Free T4 09/23/2023 [facility] TSH RFX On Abnormal To Free T4 0.269 uIU/mL Low 0.450-4 .500 T4,Free (Direct) 1.30 ng/dL 0.82-1. 77 TSH+Free T4 06/22/2023 [facility] TSH 0.112 uIU/mL Low 0.450-4 .500 T4,Free(Direct) 1.37 ng/dL 0.82-1. 77 Triiodothyronine (T3), Free 06/22/2023 [facility] Triiodothyronine (T3), Free 3.1 pg/mL 2.0-4.4 TSH 01/26/2023 [facility] TSH <0.01 uIU/mL Low (0.4-4. 2) Free T3 01/26/2023 [facility] Free T3 4.6 pg/mL (2.3-5. 0) Free T4 01/26/2023 [facility] Free T4 1.72 ng/dL (0.70-1 .80) Thyrotropin Receptor AB 01/26/2023 [facility] Thyrotropin Receptor AB 2.27 High 1 1 Reference range: 0.0 0 to 1.75 Unit: IU/L Test performed at [address] [address] Medical Devices Description No Information Available Encounters Type Date Location Provider Dx Diagnosis Office Visit 05/29/2024 2:30p Main Office Reynaldo Kearns M.D. E05.00 Thyrotoxicosis w diffuse goiter w/o thyrotoxic crisis Assessments Date Code Description Provider 05/29/2024 E05.00 Graves' disease Reynaldo maguire M.D. Plan of Treatment Future Appointment(s):* 10/30/2024 2:30 pm - Reynaldo Kearns M.D. at Main Office 05/29/2024 - Reynaldo Kearns M.D.* E05.00 Graves' disease Functional Status Description No Information Available Mental Status Description No Information Available Referrals Description No Information Available
== END 2024-09-27 13:33 | disposition home or self-care (01) ==
LOC: HO.HCS 13:14
PROVIDERS: PCP Internal Medicine; Visit Provider Internal Medicine Cardiovascular Disease
DX: I48.92 Unspecified atrial flutter (principal)
CPT/HCPCS: 93010; 99214; G2211

== ENCOUNTER → 2024-09-27 13:13 | Outpatient (BNVA) | payer OTHER, SELFPAY | PROVIDERS: PCP Internal Medicine; Visit Provider Internal Medicine Cardiovascular Disease | DX: I48.92 Unspecified atrial flutter (principal) | CPT/HCPCS: 93005 ==

== ENCOUNTER 2024-11-21 10:44 | Outpatient (REF) | payer OTHER, SELFPAY | END 2024-11-21 10:45 | disposition home or self-care (01) | LOC: HO.HMGCLDS 10:44 | PROVIDERS: PCP Internal Medicine; Visit Provider Internal Medicine | DX: Z00.01 Encounter for general adult medical examination with abnormal findings (principal); I48.92 Unspecified atrial flutter; F22 Delusional disorders; E66.09 Other obesity due to excess calories; Z68.34 Body mass index [BMI] 34.0-34.9, adult | CPT/HCPCS: 96127 ==

== ENCOUNTER 2024-11-21 10:44 | Outpatient (AMB) | payer OTHER, SELFPAY ==
[2024-11-21 10:48] VITALS: BP 130/80; PULSE 52; O2SAT 97; BMI 34.7
--- NOTE | 2024-11-21 10:48 | A.OFFPC_ITS ---
Vital Signs 11/21/24 10:48 Height 5 ft 10 in Weight 242 lb BMI 34.7 BP 130/80 Blood Pressure Location Lt brachial Position Sitting Pulse 52 Pulse Source Pulse Oximeter Pulse Oximetry (%) 97 Intake Visit Reasons: Annual visit Allergies No Known Allergies (No Known Allergies*) Allergy (Verified 11/21/24 10:48) Medication List - Last Reconciled 11/21/24 by Marlys Meza MD acetaminophen 500 mg PO TID PRN 15 days metoprolol tartrate 50 mg PO BID paliperidone ER 1.5 mg PO Tobacco use date assessed: 11/21/24 Dental Screening Dental Screen Date: 11/21/24 Did you have a dental visit in the last 12 months?: No Did you have a dental problem in the last 6 months where you did not have access to dental care?: No Was dental information given to patient?: Patient declined HPI Annual visit HPI Details History of Present Illness The patient is a 64-year-old male presenting for an annual physical examination. Elevated Body Mass Index (BMI): - BMI currently noted as 34.7. Paroxysmal Atrial Flutter: - Has a history of paroxysmal atrial flu tter. - managed by cardio Dr Oneal Delusional Disorder: - History of delusional disorder. 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 - Activity Level: Walks around [place] for work, implying physical activity. Health Maintenance - Previous colonoscopy in 2016, with no polyps found. Next due in 2026. - Received flu vaccination recently at [facility] - Cardiology with Dr. Oneal - Psychiatry for delusional disorder Medications - Metoprolol 50 mg BID for paroxysmal at rial flutter - Paliperidone 1.5 mg once a day for del usional disorder Patient Instructions - Have fasting lab work tomorrow. - Avoid eating or drinking anything exce pt water before the lab work. - continue medications as prescribed - be mindful of gaining weight - return in 1 year for physical examinat ion Review of Systems - General: No fever no chills - Neurological: No headaches no dizzin ess - Ear nose throat: No sore throat no hearing difficulty no ear pain - Cardiovascular: No syncope, no chest pain, no palpitations - Gastrointestinal: No nausea vomiting or diarrhea - Endocrine: No polyuria polydipsia no heat intolerance - Genitourinary: No dysuria - Skin: No new complaints Physical Exam General: Cooperative, healthy appearing, comfortable, no acute distress Orientation: Patient oriented x3 Head: Normal to inspection Ears: Within normal limit visually Nose: Normal external nose present Face and sinus: Normal facial exam Eyes: Appearance normal, extraocular movement intact pupils reactive Neck: Normal visual inspection and supple Respiratory: Normal respiratory effort and able to speak in complete sentences. Clear to auscultation, no stridor Cardiovascular: S1 and S2 RRR, heart is beating nice and regular GI: Normal to inspection. Soft to palpation and nontender Skin: Turgor normal, no acute findings Neuro: Patient oriented x3, motor sensory intact, balance intact, tandem pass Extremities: Normal to inspection, range of motion intact . [facility] Medical History Sinus bradycardia Paroxysmal atrial flutter Surgical History History of surgery on arm Hx of colonoscopy Family History Father Colon cancer Mother No problems noted. Social History Housing: Apartment Alcohol intake: former Year quit: 2004 Patient Tobacco Use Status: Former Tobacco user Years Smoked: 40 +/- e-Cigarette/Vaping Use: Never Used service: Yes Current occupational status: employed and retired Cognitive needs: No Hearing needs: No Vision needs: No Questionnaire PHQ-9 Over the last 2 weeks, how often have you been bothered by any of the following problems? 1. Little interest or pleasure in doing things: not at all 2. Feeling down, depressed, or hopeless: not at all 3. Trouble falling or staying asleep, or sleeping too much: not at all 4. Feeling tired or having little energy: not at all 5. Poor appetite or overeating: not at all 6. Feeling bad about yourself - or that you are a failure or have let yourself or your family down: not at all 7. Trouble concentrating on things, such as reading the newspaper or watching television: not at all 8. Moving or speaking so slowly that other people could have noticed. Or the opposite - being so fidgety or restless that you have been moving around a lot more than usual: not at all 9. Thoughts that you would be better off or of hurting yourself in some way: not at all Total score: 0 Depression Screening Interpretation: Negative Depression Screening Done: Yes 93146 - PHQ-9 Billing: Yes Source: Developed by Drs. Jamir Rosales, Christine Brown, Adam Dejesus and colleagues, with an educational pravin from [employer]. Thrive Questionnaire Date Thrive assessed: 11/21/24 I am a: Patient What is your living situation today?: I have a steady place to live Within the past 12 months, did the food you bought not last and you didn't have the money to get more?: Never true Within the past 12 months, did you worry whether your food would run out before you got money to buy more?: Never true Do you have trouble paying for medicines?: No Do you have trouble getting transportation to medical appointments?: No Do you have trouble paying your heating and electricity bill?: No Do you have trouble taking care of your child, family member or friend?: No Do you have trouble with day-to-day activities such as bathing, preparing meals, shopping, managing finances, etc.?: No Are you currently unemployed and looking for a job?: No Are you interested in more education?: No Please select the resources that you would like help with: None Currently or been in a relationship where the following occur: No concerns reported THRIVE Score: 0 AUDIT C Alcohol Use Questionnaire (AUDIT-C) 1. How often do you have a drink containing alcohol?: Never 3. How often do you have six or more drinks on one occasion?: Never Total Score: 0 Score Reviewed/Action Taken: Yes GUSTAVO-7 AMB Questionnaire GUSTAVO-7 Date GUSTAVO - 7 assessed: 11/21/24 Feeling nervous, anxious, or on edge: 0 = Not at all Not being able to stop or control worryin = Not at all Worrying too much about different things: 0 = Not at all Trouble relaxin = Not at all Being so restless that it is hard to sit still: 0 = Not at all Becoming easily annoyed or irritable: 0 = Not at all Feeling afraid as if something awful might happen: 0 = Not at all Total GUSTAVO-7 score (0-4 normal; 5-9 mild; 10-14 moderate; 15-21 severe): 0 Source: Developed by Drs. Jamir Rosales, Christine Brown, Adam Dejesus and colleagues, with an educational pravin from [employer]. GUSTAVO-7 Assessment Billing GUSTAVO-7 Assessment Tool: GUSTAVO-7 Assessment 69485 Physical exam (Primary Care) Vital Signs: Last Vital Signs Pulse 52 11/21/24 10:48 BP 130/80 11/21/24 10:48 Pulse Ox 97 11/21/24 10:48 BMI result Body Mass Index 34.7 Tobacco/Smoking Status: Tobacco use Status Tobacco use date assessed 11/21/24 11/21/24 10:50 Patient Tobacco Use Status Former Tobacco user 11/21/24 10:50 e-Cigarette/Vaping Use Never Used 11/21/24 10:50 PHQ-9: PHQ-9 Score PHQ-9: Total score 0 11/21/24 11:05 Depression Screening Interpretation: Negative Thrive Assessment: Date of Thrive Assessment Date Thrive assessed 11/21/24 11/21/24 10:50 Currently or been in a relationship where the following occur: No concerns reported Coding Level of Care Code Est Pt Level 3 (66251) Est Pt Prev Care 40-64y(52717) Diagnoses Encounter for general adult medical examination with abnormal findings Z00.01 Paroxysmal atrial flutter I48.92 Delusional disorder F22 Class 1 obesity due to excess calories with serious comorbidity and body mass index (BMI) of 34.0 to 34.9 in adult E66.09; Z68.34 Body mass index: BMI 34.0-34.9 Obesity classification: adult class 1 (BMI 30 - 34.9) Serious obesity comorbidity presence: with serious comorbidity Additional Codes GUSTAVO-7 Assessment Billing - GUSTAVO-7 Assessment Tool: GUSTAVO-7 Assessment 91076 ([id number]) PHQ-9 - 07808 - PHQ-9 Billing: Yes ([id number]) Assessment & Plan Assessment & Plan (1) Encounter for general adult medical examination with abnormal findings: Code(s): Z00.01 - Encounter for general adult medical examination with abnormal findings Category: Medical (2) Paroxysmal atrial flutter: Code(s): I48.92 - Unspecified atrial flutter Category: Medical (3) Delusional disorder: Code(s): F22 - Delusional disorders Category: Medical (4) Obesity due to excess calories: Code(s): E66.09 - Other obesity due to excess calories Category: Medical Qualifiers: Body mass index: BMI 34.0-34.9 Obesity classification: adult class 1 (BMI 30 - 34.9) Serious obesity comorbidity presence: with serious comorbidity Qualified Code(s): E66.09 - Other obesity due to excess calories; Z68.34 - Body mass index [BMI] 34.0-34.9, adult Plan History of Present Illness The patient is a 64-year-old male presenting for an annual physical examination. Elevated Body Mass Index (BMI): - BMI currently noted as 34.7. Paroxysmal Atrial Flutter: - Has a history of paroxysmal atrial flutter. - managed by cardio Dr Oneal Delusional Disorder: - History of delusional disorder. 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 - Substance Use: Denies alcohol and tobacco use. - Activity Level: Walks around [place] for work, implying physical activity. Health Maintenance - Previous colonoscopy in 2017, with no polyps found. Next due in 2026. - Received flu vaccination recently at the [place] - Cardiology with Dr. Oneal - Psychiatry for delusional disorder Medications - Metoprolol 50 mg BID for paroxysmal atrial flutter - Paliperidone 1.5 mg once a day for delusional disorder Patient Instructions - Have fasting lab work tomorrow. - Avoid eating or drinking anything except water before the lab work. - continue medications as prescribed - be mindful of gaining weight - return in 1 year for physical examination . Orders: Orders Hemoglobin A1c Today E66.09 - Other obesity due to excess calories, F22 - Delusional disorders, I48.92 - Unspecified atrial flutter, Z00.01 - Encounter for general adult medical examination with abnormal findings, Z68.34 - Body mass index [BMI] 34.0-34.9, adult Comprehensive [place]. Panel Fast Today E66.09 - Other obesity due to excess calories, F22 - Delusional disorders, I48.92 - Unspecified atrial flutter, Z00.01 - Encounter for general adult medical examination with abnormal findings, Z68.34 - Body mass index [BMI] 34.0-34.9, adult Lipid Panel Today E66.09 - Other obesity due to excess calories, F22 - Delusional disorders, I48.92 - Unspecified atrial flutter, Z00.01 - Encounter for general adult medical examination with abnormal findings, Z68.34 - Body mass index [BMI] 34.0-34.9, adult TSH reflex Free T4 Today E66.09 - Other obesity due to excess calories, F22 - Delusional disorders, I48.92 - Unspecified atrial flutter, Z00.01 - Encounter for general adult medical examination with abnormal findings, Z68.34 - Body mass index [BMI] 34.0-34.9, adult Complete Blood Count Auto Diff Today E66.09 - Other obesity due to excess calories, F22 - Delusional disorders, I48.92 - Unspecified atrial flutter, Z00.01 - Encounter for general adult medical examination with abnormal findings, Z68.34 - Body mass index [BMI] 34.0-34.9, adult
== END 2024-11-21 11:18 | disposition home or self-care (01) ==
LOC: HO.HMCC 10:45
PROVIDERS: PCP Internal Medicine; Visit Provider Internal Medicine
DX: Z00.01 Encounter for general adult medical examination with abnormal findings (principal); I48.92 Unspecified atrial flutter; F22 Delusional disorders; E66.09 Other obesity due to excess calories; Z68.34 Body mass index [BMI] 34.0-34.9, adult

== ENCOUNTER 2024-11-22 10:20 | Outpatient (REF) | payer OTHER, SELFPAY ==
[2024-11-22 13:27] LABS: MANUAL DIFF FLAG NO
[2024-11-22 14:06] LABS: Hematocrit 39.6 % (42.0-52.0); Hemoglobin 12.7 g/dl (14.0-18.0); Imm Gran Abs Auto 0.02 X10*3/uL (0.00-0.03); Imm Gran Pct Auto 0.4 % (0.0-0.4); Lymphocytes Absolute Auto 2.1 X10*3/uL (1.2-4.9); Mean Corpuscular HGB Conc 32.1 g/dl (31.0-36.0); Mean Corpuscular Hemoglobin 28.7 pg (27.0-33.0); Mean Corpuscular Volume 89.4 fL (80.0-98.0); NRBC Abs Auto 0.000 X10*3/uL (0.0-0.012); NRBC Pct Auto 0.0 /100WBC (0.0-0.2); Platelet Count 250 X10*3/uL (160-400); Red Blood Count 4.43 X10*6/uL (4.60-5.80); White Blood Count 5.7 X10*3/uL (4.8-10.8)
[2024-11-22 14:24] LABS: Alanine Aminotransferase 27 U/L (0-40); Albumin Level 4.6 g/dL (3.5-5.0); Alkaline Phosphatase 59 U/L (39-117); Anion Gap 9 (12-20); Aspartate Amino Transferase 24 U/L (5-37); Blood Urea Nitrogen 19 mg/dL (9-16); Calcium 9.6 mg/dL (8.4-10.2); Carbon Dioxide 30 mmol/L (22-29); Chloride 107 mmol/L (96-108); Cholesterol 186 mg/dL (<200); Estimated Glomerular Filt Rate > 60; HDL Cholesterol 46 mg/dL (>40); Potassium 4.5 mmol/L (3.3-5.1); Sodium 141 mmol/L (135-145); Total Protein 7.1 g/dL (6.5-8.0); Triglycerides 50 mg/dL (<150)
== END 2024-11-22 10:21 | disposition home or self-care (01) ==
LOC: HO.HMGCLDS 10:20
PROVIDERS: PCP Internal Medicine; Visit Provider Internal Medicine
DX: Z00.01 Encounter for general adult medical examination with abnormal findings (principal); Z13.1 Encounter for screening for diabetes mellitus; I48.92 Unspecified atrial flutter; F22 Delusional disorders; E66.09 Other obesity due to excess calories; Z68.34 Body mass index [BMI] 34.0-34.9, adult
CPT/HCPCS: 36415; 80053; 80061; 83036; 84443; 85025